=== PATIENT | female | born 1945 | race Caucasian/White ===

== ENCOUNTER 2020-11-25 09:25 | Day surgery (SDC) | payer MEDICARE, SELFPAY ==
--- NOTE | 2020-11-23 15:09 | HO.ANESPROP2 ---
Documented by User: Cee Ross 11/24/20 12:03 HPI - Anesthesia Eval Consult details Narrative: 75yo F for Hammertoe Repair PCP cleared [facility] Past Medical History Medical History Arthritis COPD (chronic obstructive pulmonary disease) Depression Elevated cholesterol History of right breast cancer Hypothyroid Surgical History Surgical History History of bunionectomy History of lumpectomy of right breast Hx of arthroscopy of knee Hx of colonoscopy Hx of hysterectomy Social History Social History Do you presently have visiting nurse or other home services: No Smoking Status: Former smoker Smoking Quit Date: 30 yrs ago Use of substances other than those prescribed or required for medical reasons: No Advance Directives: No Advance Directives Information Provided: No Advance Directives on File: No Recently lost weight without trying: No Meds Allergies Allergy/AdvReac Type Severity Reaction Status Date / Time No Known Allergies Allergy Unverified 08/05/20 16:14 [No Known Allergies*] Home Medications Medication Instructions Recorded Confirmed Type atorvastatin 1 tab PO DAILY 11/17/20 11/17/20 History levothyroxine 1 tab PO QAM 11/17/20 11/17/20 History trazodone 1 tab PO BEDTIME 11/17/20 11/17/20 History venlafaxine 2 cap PO DAILY 11/17/20 11/17/20 History Exam Exam Date and Time: November 23, 2020 1509 Height,Weight and Vital Signs: Height 5 ft 4 in Weight 79.379 kg Assessment and Plan Assessment Anesthesia Assessment: Chart Reviewed Documented by User: Shena Macias 11/25/20 09:57 [facility] Past Medical History Medical History Arthritis COPD (chronic obstructive pulmonary disease) Depression Elevated cholesterol History of right breast cancer Hypothyroid Surgical History Surgical History History of bunionectomy History of lumpectomy of right breast Hx of arthroscopy of knee Hx of colonoscopy Hx of hysterectomy Social History Social History Do you presently have visiting nurse or other home services: No Smoking Status: Former smoker Smoking Quit Date: 30 yrs ago Use of substances other than those prescribed or required for medical reasons: No Advance Directives: No Advance Directives Information Provided: No Advance Directives on File: No Recently lost weight without trying: No Meds Allergies Allergy/AdvReac Type Severity Reaction Status Date / Time No Known Allergies Allergy Unverified 08/05/20 16:14 [No Known Allergies*] Home Medications Medication Instructions Recorded Confirmed Type atorvastatin 1 tab PO DAILY 11/17/20 11/17/20 History levothyroxine 1 tab PO QAM 11/17/20 11/17/20 History trazodone 1 tab PO BEDTIME 11/17/20 11/17/20 History venlafaxine 2 cap PO DAILY 11/17/20 11/17/20 History Exam Airway Mallampati Class: II TM Dist: >3cm Neck ROM: Full Loose/Missing/Broken Teeth: No Heart: RRR Lungs: CTA Assessment and Plan Assessment Anesthesia Assessment: Anesthesia Plan Discussed and Chart Reviewed Final Anesthetic Review NPO: Yes ASA Class: II Final Preanesthetic Review: Meds/Allgs Chart Reviewed, Consent Obtained/Reviewed and Anes Risks/Benef Reviewed Patient Risk: Intermediate Procedure Risk: Low Anesthetic Plan Anesthetic Plan: MAC: Disposition: Standard PACU
--- NOTE | 2020-11-23 15:12 | HP_ITS ---
DATE OF SERVICE: 11/25/2020 PREOPERATIVE DIAGNOSES: 1. Hallux abductovalgus, right foot. 2. Hammertoe, right second toe. PLANNED PROCEDURES: 1. Sam bunionectomy with open reduction and internal fixation, right foot. 2. Hammertoe repair, right second toe. PLANNED ANESTHESIA: MAC anesthesia. CHIEF COMPLAINT AND HISTORY OF PRESENT ILLNESS: Miladis Geller is a 75-year-old female who relates history of painful bunion in the right great toe joint and hammertoe right second toe present over the past several years' duration. Her pain is aggravated by shoe gear and walking activity. Conservative treatment consisting of altered shoe gear has been ineffective. The patient had previous bunion surgery of her right great toe joint with Dr. Chaim Tucker approximately 30 years ago. The patient is now requesting surgical treatment for these painful conditions. PAST MEDICAL HISTORY: Remarkable for high cholesterol, hypothyroidism, depression, anxiety. CURRENT MEDICATIONS: The patient takes atorvastatin, levothyroxine, trazodone, venlafaxine, and lutein as well as [id number] Zyrtec allergy medication as needed. ALLERGIES: THE PATIENT AFTER REVIEW DENIES ANY ALLERGIES OR DRUG SENSITIVITIES. DR. ALEXANDER HAD MADE NOTE OF THE FACT THAT THE PATIENT DOES FEEL FATIGUED WHEN TAKING PROZAC. FAMILY HISTORY: Significant for hypertension and heart disease as well as foot problems. SOCIAL HISTORY: The patient denies smoking, denies alcohol. Denies use of any recreational drugs. The patient does drink 1 to 2 cups of coffee per day. PODIATRIC PHYSICAL EXAM: VASCULAR EXAM: The patient displays normal pulses and normal capillary refill time of bilateral feet. DERMATOLOGIC EXAM: Reveals intact skin bilateral. NEUROLOGIC EXAM: Reveals intact sensation bilateral. ORTHOPEDIC EXAM: Reveals a bunion deformity of the right first metatarsophalangeal joint with pain on palpation and lateral tracking noted of the first MTP joint. The patient also has a hammertoe contracture of the right second toe. The patient was seen most recently in my office on November 22, 2020. The patient was instructed of all potential risks and complications and is compliant with her right foot surgery. Preoperative informed consent has been obtained. VESNA Valdez/BERT / [id number] RYAN
[2020-11-25 10:03] VITALS: BP 137/70; PULSE 79; RESP 18; TEMP 36.4; O2SAT 95
[2020-11-25] MEDS: Lactated Ringers 1,000 ML 100 ML IVCONT (10:06)
[2020-11-25 10:17] VITALS: BP 137/70; PULSE 79; RESP 18; TEMP 36.4; O2SAT 95
[2020-11-25] MEDS: ceFAZolin Sodium/Dextrose,Iso 2 GM/50 ML PIGGYBACK IV (10:22)
--- NOTE | 2020-11-25 11:12 | MHC.SHP ---
Pre-Procedural Eval Section A The patient is an INPATIENT: No The History & Physical has been completed within 30 days and I have reviewed it.: Yes Section B Chief Complaint: Right Hallux Valgus,Hammer Toe Right 2nd Details of Present Illness: pain with shoes Allergies: Allergies Allergy/AdvReac Type Severity Reaction Status Date / Time No Known Allergies Allergy Verified 11/25/20 10:07 [No Known Allergies*] Plan Diagnosis/Plan: Unchanged I have reviewed the history and physical and performed a pertinent physical examination on my patient. No changes have occurred unless specified.
--- NOTE | 2020-11-25 12:18 | PCN2_ITS ---
Brief Operative Note Date of procedure: 11/25/20 Pre-op diagnosis: hallux valgus right, hammertoe right 2nd Post-op diagnosis: same Procedure: ender bunionectomy with orif right, hammertoe repair right 2nd toe Anesthesia: MAC Surgeon: Burt Lockhart [place] Attendant: Kitty Way Estimated blood loss (mL): 4.0 Condition: stable Disposition: PACU
[2020-11-25 12:20] VITALS: BP 146/64; PULSE 75; RESP 15; TEMP 36.7; O2SAT 96
[2020-11-25 12:35] VITALS: BP 124/61; PULSE 67; RESP 18; O2SAT 97
[2020-11-25 12:50] VITALS: BP 122/59; PULSE 66; RESP 16; O2SAT 96
[2020-11-25 13:05] VITALS: BP 130/61; PULSE 67; RESP 16; TEMP 36.7; O2SAT 97
--- NOTE | 2020-11-25 13:12 | OP_ITS ---
SURGEON: Burt Lockhart DPM PREOPERATIVE DIAGNOSIS: POSTOPERATIVE DIAGNOSIS: PROCEDURE PERFORMED: ESTIMATED BLOOD LOSS: COMPLICATIONS: ANESTHESIA: Consisted of local administration of a total of 16 cc of an equal mix of 2% lidocaine with epinephrine 1:100,000 of 0.5% Marcaine plain. Intravenous sedation was provided by the Anesthesia Department. ASSISTANTS: Kitty Way DPM. SPECIMENS: POSTOPERATIVE DIAGNOSES: 1. Hallux abductovalgus, right foot. 2. Hammertoe, right second toe. POSTOPERATIVE DIAGNOSES: 1. Hallux abductovalgus, right foot. 2. Hammertoe, right second toe. PROCEDURES PERFORMED: 1. Sosa bunionectomy with open reduction and internal fixation, right foot. 2. Hammertoe repair, right second toe. INTRODUCTION: The patient was brought to the operating room, placed on the operative table in supine position. After having been suitably anesthetized with local infiltrative anesthesia, the right lower extremity was then prepped and draped in the usual sterile manner. Please note that prior to start of the procedure, the right foot was exsanguinated utilizing Esmarch bandage and right ankle tourniquet was inflated to 250 mmHg pressure for the duration of the procedures. SOSA BUNIONECTOMY WITH OPEN REDUCTION AND INTERNAL FIXATION, RIGHT FOOT: Attention was directed to the dorsum of the right first metatarsophalangeal joint, where an incision approximately 7 cm length was effected and centered over the dorsum of the right first metatarsophalangeal joint. The incision was deepened in same plane and hemostasis was acquired as necessary. Skin margins were underscored and retracted. A dorsal linear capsule incision was then effected, and the capsule periosteum was underscored and retracted. McGlamry elevator was introduced to free up the adhesions between the sesamoid complex and the first metatarsal head. The first intermetatarsal space was exposed via blunt and sharp dissection. A lateral capsulotomy and adductor tenotomy performed via sharp dissection. Attention was directed back to the medial aspect of first metatarsal where a modified V-osteotomy was carried out through the distal metaphysis. The capital fragment was shifted laterally and then fixated utilizing 2 of the [place] cannulated screws each measuring 18 mm length and 2.0 mm in diameter. The screws were oriented perpendicular to the dorsal wing of the osteotomy. A 2 screw fixation was found to give excellent interfragmental compression of the osteotomy. The redundant bone was resected utilizing a sagittal saw. The wound was irrigated. Capsule was closed with 3-0 Vicryl. One-half of a 3 cm x 3 cm AmnioFix was placed inside the capsule during closure. The subcutaneous tissue was closed with 4-0 Maxon and Monocryl, and the second half of the AmnioFix was placed in the subcutaneous tissue during closure. Skin margins were reinforced with 4-0 nylon. HAMMERTOE REPAIR, RIGHT SECOND TOE: Attention was directed to the dorsum of the right second toe, where incision approximately 2 cm length was effected and centered over the dorsum of the right second toe proximal interphalangeal joint. The incision was deepened in the same plane. Hemostasis was acquired. The skin margins were underscored and retracted. A transverse incision was effected through the extensor tendon complex at the level of the PIP joint. The extensor tendon was underscored and retracted. The hypertrophic head of the proximal phalanx was delivered from the wound and resected utilizing a sagittal saw. The wound was irrigated. The tendon was coapted to maintain utilizing 3-0 Vicryl. Skin margins were closed with 4-0 nylon. CONCLUSION: At the conclusion of these procedures, the operative sites were dressed with half-inch Steri-Strips to the first MTP joint, Xeroform to the right second toe. Surgical sites were injected with total 5 cc of Marcaine 0.5% plain and 1 cc of dexamethasone phosphate. Sterile gauze, Kerlix fluffs, and Betadine-soaked gauze were applied to the right lower extremity. The patient tolerated the surgery and anesthesia well, and left the operating room via cart to the recovery room. Right ankle tourniquet was deflated and normal blood flow reestablished to the right lower extremity. FINAL DISPOSITION: The patient is discharged home with instructions for self-care and include the followin. To keep the dressings dry, clean, and intact. 2. To keep the right leg elevated with ice above the ankle. 3. To take all medications as prescribed. 4. Limit activity to minimum. 5. To always use surgical shoe and walker when ambulating. 6. To contact Dr. Lockhart if any questions or problems arise. 7. Lastly, the patient will have a followup appointment on Sunday, November 29, 2020. VESNA Valdez/BERT / [phone]
--- NOTE | 2020-11-25 13:24 | HO.POSTANES ---
Post Anesthesia Evaluation Post Anesthesia Evaluation Vital Signs: Vital Signs Temp Pulse Resp BP Pulse Ox 11/25/20 13:05 98.0 F 67 16 130/61 97 11/25/20 12:50 66 16 122/59 L 96 11/25/20 12:35 67 18 124/61 97 11/25/20 12:20 98.1 F 75 15 146/64 H 96 11/25/20 10:17 97.5 F 79 18 137/70 95 11/25/20 10:03 97.5 F 79 18 137/70 95 Anesthesia: Monitored Mental Status: Awake Pain Control: Satisfactory Nausea/Vomiting: None Hydration: Adequate Anesthesia-Related Issues: No Anes. Related Issues
== END 2020-11-25 13:44 | disposition home or self-care (01) ==
PROVIDERS: PCP Internal Medicine; Visit Provider Podiatrist
PROC: (CPT 28285; principal; 2020-11-25 10:50)
DX: M20.11 Hallux valgus (acquired), right foot (principal); M21.611 Bunion of right foot; M20.41 Other hammer toe(s) (acquired), right foot; J44.9 Chronic obstructive pulmonary disease, unspecified; M19.90 Unspecified osteoarthritis, unspecified site; Z79.899 Other long term (current) drug therapy; Z87.891 Personal history of nicotine dependence
CPT/HCPCS: 28296; 28285; 88304; 88311; C1713; J0690; J1100; J2250; J3010; J3590

== ENCOUNTER 2020-12-08 10:51 | Outpatient (REF) | payer MEDICARE, SELFPAY ==
--- NOTE | 2020-12-08 11:03 | XR_ITS ---
EXAMINATION: AP STANDING VIEW OF BOTH KNEES AND 2 VIEWS OF THE RIGHT KNEE CLINICAL INFORMATION: Right knee pain. COMPARISON: 04/08/2014 TECHNIQUE: AP standing view of both knees and lateral and sunrise views of the right knee. FINDINGS: AP view of the left knee demonstrate chondrocalcinosis. No significant joint space narrowing is seen. There is some mild degenerative spurring seen about the lateral joint space compartments. AP view of the right knee demonstrates severe narrowing of the medial joint space compartment which was present on prior study of 04/08/2014. There is sclerosis and spurring with chondrocalcinosis present about the medial joint space compartment. There is some spurring about the lateral joint space compartments. There is some mild narrowing of the patellofemoral joint with spurring about both medial and lateral facets. There is a small right knee effusion. XR/XR knee standing BI IMPRESSION: No evidence of acute fracture or dislocation of the right knee. Small right knee effusion. Stable severe medial joint space compartment disease of the right knee. Right patellofemoral joint mild degenerative change. Bilateral chondrocalcinosis.
--- NOTE | 2020-12-08 11:04 | XR_ITS ---
EXAMINATION: AP STANDING VIEW OF BOTH KNEES AND 2 VIEWS OF THE RIGHT KNEE CLINICAL INFORMATION: Right knee pain. COMPARISON: 04/08/2014 TECHNIQUE: AP standing view of both knees and lateral and sunrise views of the right knee. FINDINGS: AP view of the left knee demonstrate chondrocalcinosis. No significant joint space narrowing is seen. There is some mild degenerative spurring seen about the lateral joint space compartments. AP view of the right knee demonstrates severe narrowing of the medial joint space compartment which was present on prior study of 04/08/2014. There is sclerosis and spurring with chondrocalcinosis present about the medial joint space compartment. There is some spurring about the lateral joint space compartments. There is some mild narrowing of the patellofemoral joint with spurring about both medial and lateral facets. There is a small right knee effusion. XR/XR knee RT 2V IMPRESSION: No evidence of acute fracture or dislocation of the right knee. Small right knee effusion. Stable severe medial joint space compartment disease of the right knee. Right patellofemoral joint mild degenerative change. Bilateral chondrocalcinosis.
== END 2020-12-08 10:52 | disposition home or self-care (01) ==
LOC: HO.XRAY 10:51
PROVIDERS: PCP Internal Medicine; Visit Provider Orthopaedic Surgery
DX: M25.561 Pain in right knee (principal)
CPT/HCPCS: 73560; 73565

== ENCOUNTER 2021-01-20 09:34 | Outpatient (REF) | payer MEDICARE, SELFPAY ==
[2021-01-20 10:23] LABS: MANUAL DIFF FLAG NO
[2021-01-20 10:36] LABS: Basophils Percent Auto 0.6 % (0-2); Eosinophils Absolute Auto 0.1 X10*3/uL (0.0-0.4); Eosinophils Percent Auto 1.7 % (0-4); Hematocrit 43.2 % (37-47); Hemoglobin 14.2 g/dl (12.0-16.0); Imm Gran Abs Auto 0.01 X10*3/uL (0.00-0.03); Imm Gran Pct Auto 0.2 % (0.0-0.4); Lymphocytes Absolute Auto 1.7 X10*3/uL (1.2-4.9); Mean Corpuscular HGB Conc 32.9 g/dl (31.0-35.0); Mean Corpuscular Hemoglobin 28.1 pg (27.0-33.0); Mean Corpuscular Volume 85.4 fL (80-98); Mean Platelet Volume 10.1 fL (9.4-12.3); Monocytes Absolute Auto 0.4 X10*3/uL (0.1-1.2); Monocytes Percent Auto 7.9 % (2-11); Neutrophils Absolute Auto 2.5 X10*3/uL (2.0-8.3); Neutrophils Percent Auto 52.6 % (45-73); Platelet Count 289 X10*3/uL (160-400); Red Blood Count 5.06 X10*6/uL (4.20-5.50); White Blood Count 4.7 X10*3/uL (4.8-10.8)
[2021-01-20 11:05] LABS: Glucose Urine UA NEG (NEG); Leukocyte Esterase Urine 2+ (NEG); Nitrite Urine NEG (NEG); Urine Blood NEG (NEG); Urine Ketones NEG (NEG); Urine Protein NEG (NEG-TRACE)
[2021-01-20 11:13] LABS: Appearance Urine HAZY; Color Urine YELLOW
[2021-01-20 11:20] LABS: Bacteria Urine TRACE /LPF; Mucus Urine TRACE /LPF; RBC Urine 0-2 /HPF (0); Squamous Epithelial Cell Urine 1+ /LPF
[2021-01-20 11:23] LABS: Alanine Aminotransferase 19 U/L (0-31); Alkaline Phosphatase 68 U/L (39-117); Anion Gap 12 (12-20); Aspartate Amino Transferase 19 U/L (5-31); Bilirubin Total 0.6 mg/dL (0.0-1.0); Blood Urea Nitrogen 13 mg/dL (9-16); Carbon Dioxide 28 mmol/L (22-29); Cholesterol 158 mg/dL; Estimated Glomerular Filt Rate > 60; HDL Cholesterol 53 mg/dL; LDL Cholesterol Calculated 86 mg/dl; Triglycerides 98 mg/dL
[2021-01-20 11:31] LABS: Thyroid Stimulating Hormone 1.14 uIU/mL (0.32-4.0); Vitamin D 25-OH Total 60.1 ng/mL (>30)
[2021-01-20 13:21] LABS: Albumin Level 4.4 g/dL (3.5-5.0); Calcium 9.6 mg/dL (8.4-10.2); Chloride 106 mmol/L (96-108); Glucose Fasting 97 mg/dL (60-99); Potassium 4.2 mmol/L (3.3-5.1); Sodium 142 mmol/L (135-145)
== END 2021-01-20 09:35 | disposition home or self-care (01) ==
LOC: HO.LAB 09:34
PROVIDERS: PCP Internal Medicine; Visit Provider Internal Medicine
DX: E78.00 Pure hypercholesterolemia, unspecified (principal); E03.9 Hypothyroidism, unspecified; M25.561 Pain in right knee
CPT/HCPCS: 36415; 80053; 80061; 81001; 82306; 84443; 85025

== ENCOUNTER 2021-03-23 13:26 | Outpatient (REF) | payer MEDICARE, SELFPAY ==
--- NOTE | ~2021-03-23 | CT_ITS ---
EXAMINATION: CT CHEST, ABDOMEN AND PELVIS WITHOUT CONTRAST CLINICAL INFORMATION: Right flank pain, elevated hemidiaphragm. COMPARISON: None. TECHNIQUE: 5 mm thin axial and reformatted 3 mm thin sagittal and coronal images of the chest, abdomen and pelvis were obtained without contrast. FINDINGS: CHEST: The lungs are well expanded and clear of acute pneumonic process. There is a 2 mm calcified nodule right upper lobe axial image 222/7, a 3 mm nodule right lower lobe adjacent to the major fissure axial image 279/7, a 2 mm nodule right lower lobe axial image 298/7, a 2 mm nodule right middle lobe axial image 293/7, 3 mm nodule right lower lobe anterior segment image 325/7. There are focal atelectatic changes right middle lobe. The thyroid lobes are symmetric and normal. The central trachea and bronchi are widely patent. The heart size is normal. The ascending aorta measures 4.1 x 3.8 cm. There is no pericardial effusion. There are no abnormal mediastinal lymph nodes. There is no pleural effusion, thickening or calcification. The axilla and chest wall is unremarkable. ABDOMEN AND PELVIS: The liver is homogeneous in density, normal size and contour. No focal lesion or intrahepatic ductal dilatation seen. The gallbladder is unremarkable. Visualized spleen, pancreas and bilateral adrenal glands are unremarkable. Both kidneys are normal size, shape and position. There are no radiographic renal calculi or hydronephrosis. There is moderate stool, diverticula and gas seen throughout the colon without any significant distention or mural thickening. There is no pericolic fat stranding. The small bowel loops are normal caliber. Appendix is not visualized. There is no free air or free fluid. There is epigastric anterior abdominal wall hernia with intraperitoneal fat within the neck is 1.4 cm wide. A tiny umbilical hernia containing fat is noted. Imaging through the pelvis reveals multiple phleboliths in the pelvis. There is no adnexal mass. The uterus is atrophic or surgically removed. No abnormal pelvic or inguinal lymph nodes seen. Bone windows reveal degenerative disc changes with vacuum disc phenomena at L5-S1 disc level. There is mild ventral spondylosis upper lumbar spine. No lytic or sclerotic process seen. There is bilateral L5-S1, L4-L5 and L3-L4 facet joint arthropathy. No lytic process. CT/CT abdomen pelvis wo con IMPRESSION: Bilateral noncalcified 3 mm pulmonary nodules and a 2 mm calcified right upper lobe nodule No acute consolidation. No abnormal mediastinal or axilla lymph nodes. Anterior epigastric abdominal wall hernia containing intraperitoneal fat. Epkfaizy-sp-xoaibxlwxjm constipation. No radiopaque renal calculi or hydronephrosis.
== END 2021-03-23 13:27 | disposition home or self-care (01) ==
LOC: HO.CT 13:26
PROVIDERS: PCP Internal Medicine; Visit Provider Internal Medicine
DX: R10.9 Unspecified abdominal pain (principal); J98.6 Disorders of diaphragm
CPT/HCPCS: 71250; 74176

== ENCOUNTER 2021-04-26 11:29 | Outpatient (REF) | payer MEDICARE, SELFPAY ==
--- NOTE | ~2021-04-26 | MM_ITS ---
EXAMINATION: MM SCREENING DIGITAL BREAST TOMOSYNTHESIS, BILATERAL CLINICAL INFORMATION: Screening. Asymptomatic. Lumpectomy for right breast cancer 2009. Due for yearly. COMPARISON: Mammography: 12/22/2019, 12/19/2018, 04/02/2017 TECHNIQUE: Digital breast tomosynthesis is performed in both the craniocaudal and mediolateral oblique views along with computer-aided detection (CAD). Synthesized 2D images are generated from the tomosynthesis. FINDINGS: There are scattered areas of fibroglandular density (ACR BI-RADS breast composition Category b). Right breast post therapy changes are similar to prior exams with mild reduced breast size, stable scarring, and surgical clips. Neither breast shows interval mass or architectural abnormality or abnormal calcifications. Fibronodular pattern on the left is left prominent since 2017. There are scattered bilateral benign round calcifications again seen, many are dermal. The axilla are unremarkable. No significant changes from prior exams. MM/MM tomosynthesis screening BI IMPRESSION: No significant changes from prior studies. Chronic post therapy changes right breast. ASSESSMENT: BI-RADS 2: Benign RECOMMENDATION: Routine annual mammography screening. This patient's information was entered into a reminder system with a target due date for their next mammogram.
== END 2021-04-26 11:30 | disposition home or self-care (01) ==
LOC: HO.MAMMO 11:29
PROVIDERS: Visit Provider Internal Medicine
DX: Z12.31 Encounter for screening mammogram for malignant neoplasm of breast (principal); R06.00 Dyspnea, unspecified; Q79.1 Other congenital malformations of diaphragm; M41.9 Scoliosis, unspecified; Z79.899 Other long term (current) drug therapy; Z87.891 Personal history of nicotine dependence
CPT/HCPCS: 77063; 77067; 99202

== ENCOUNTER 2021-05-09 12:59 | Outpatient (REF) | payer MEDICARE, SELFPAY ==
--- NOTE | 2021-05-09 17:06 | PFT_ITS ---
FLOWS: FEV1 87% of predicted at 1.77 L. FVC 85% of predicted at 2.32 L. FEV1 to FVC ratio of 0.76. No bronchodilator response. LUNG VOLUMES: Total lung capacity 82% of predicted at 4.17 L. Residual volume 76% of predicted at 1.77 L. Slow vital capacity 87% of predicted at 2.39 L. Expiratory reserve volume 32% of predicted at 0.19 L. Diffusion capacity is moderately decreased, diffusion capacity improves to being mildly decreased after correction for alveolar ventilation. IMPRESSION: Borderline restrictive ventilatory defect with no bronchodilator response. Decreased diffusion capacity suggests emphysema. Sukumar Song MD AP/MODL / [id number]
== END 2021-05-09 13:00 | disposition home or self-care (01) ==
LOC: HO.RESP 12:59
PROVIDERS: PCP Internal Medicine; Visit Provider Internal Medicine
DX: R06.00 Dyspnea, unspecified (principal); R91.1 Solitary pulmonary nodule; M41.9 Scoliosis, unspecified; Q79.1 Other congenital malformations of diaphragm
CPT/HCPCS: 94060; 94727; 94729

== ENCOUNTER → 2021-06-02 14:01 | Outpatient (BNVA) | payer MEDICARE, SELFPAY | PROVIDERS: PCP Internal Medicine; Visit Provider Internal Medicine | DX: Q79.1 Other congenital malformations of diaphragm (principal); R06.00 Dyspnea, unspecified | CPT/HCPCS: 99212 ==

== ENCOUNTER 2022-02-27 09:41 | Outpatient (REF) | payer MEDICARE, SELFPAY ==
--- NOTE | ~2022-02-27 | XR_ITS ---
EXAMINATION: XR SHOULDER, RIGHT CLINICAL INFORMATION: Right shoulder pain COMPARISON: None TECHNIQUE: AP external rotation, Grashey, scapular Y, and axillary views of the right shoulder. FINDINGS: Mild acromioclavicular and glenohumeral osteoarthritis. There is faint calcification in the region of the supraspinatus tendon likely representing calcific tendinitis. No acute abnormality. XR/XR shoulder RT min 2V IMPRESSION: Mild degenerative findings as described. Faint calcific tendinitis.
[2022-02-27 11:09] LABS: MANUAL DIFF FLAG NO
[2022-02-27 11:26] LABS: Color Urine YELLOW; Glucose Urine UA NEG (NEG); Leukocyte Esterase Urine 3+ (NEG); Nitrite Urine NEG (NEG); Specific Gravity - Urine 1.015 (1.005-1.025); Urine Blood TRACE (NEG); Urine Ketones NEG (NEG); Urine Protein NEG (NEG-TRACE)
[2022-02-27 11:28] LABS: Appearance Urine HAZY
[2022-02-27 11:30] LABS: Basophils Percent Auto 0.6 % (0-2); Eosinophils Absolute Auto 0.1 X10*3/uL (0.0-0.4); Eosinophils Percent Auto 2.6 % (0-4); Hemoglobin 14.5 g/dl (12.0-16.0); Imm Gran Abs Auto 0.02 X10*3/uL (0.00-0.03); Imm Gran Pct Auto 0.4 % (0.0-0.4); Lymphocytes Absolute Auto 1.5 X10*3/uL (1.2-4.9); Lymphocytes Percent Auto 29.3 % (20-40); Mean Corpuscular HGB Conc 32.2 g/dl (31.0-35.0); Mean Corpuscular Hemoglobin 27.9 pg (27.0-33.0); Mean Corpuscular Volume 86.5 fL (80.0-98.0); Mean Platelet Volume 9.9 fL (9.4-12.3); Monocytes Absolute Auto 0.4 X10*3/uL (0.1-1.2); Monocytes Percent Auto 7.7 % (2-11); Neutrophils Percent Auto 59.4 % (45-73); Platelet Count 300 X10*3/uL (160-400); Red Cell Distribution Width 13.4 % (11.0-16.0); White Blood Count 5.1 X10*3/uL (4.8-10.8)
[2022-02-27 11:51] LABS: Bacteria Urine 1+ /LPF; Squamous Epithelial Cell Urine 2+ /LPF
[2022-02-27 11:57] LABS: Alanine Aminotransferase 21 U/L (0-31); Albumin Level 4.3 g/dL (3.5-5.0); Alkaline Phosphatase 75 U/L (39-117); Anion Gap 11 (12-20); Aspartate Amino Transferase 22 U/L (5-31); Bilirubin Total 0.3 mg/dL (0.0-1.0); Blood Urea Nitrogen 13 mg/dL (9-16); Calcium 9.7 mg/dL (8.4-10.2); Carbon Dioxide 28 mmol/L (22-29); Chloride 106 mmol/L (96-108); Cholesterol 170 mg/dL; Estimated Glomerular Filt Rate > 60; Glucose Fasting 102 mg/dL (60-99); HDL Cholesterol 56 mg/dL; LDL Cholesterol Calculated 93 mg/dl; Potassium 4.4 mmol/L (3.3-5.1); Sodium 141 mmol/L (135-145); Total Protein 7.1 g/dL (6.5-8.0); Triglycerides 108 mg/dL
== END 2022-02-27 09:42 | disposition home or self-care (01) ==
LOC: HO.HMGCX 09:41
PROVIDERS: PCP Internal Medicine; Visit Provider Internal Medicine
DX: M25.511 Pain in right shoulder (principal); E03.9 Hypothyroidism, unspecified; E78.00 Pure hypercholesterolemia, unspecified; N39.41 Urge incontinence
CPT/HCPCS: 36415; 73030; 80053; 80061; 81001; 84443; 85025

== ENCOUNTER 2022-05-05 15:01 | Outpatient (REF) | payer MEDICARE, SELFPAY ==
--- NOTE | ~2022-05-05 | XR_ITS ---
EXAMINATION: LEFT FOOT AND ANKLE X-RAY CLINICAL INFORMATION: Pain COMPARISON: None TECHNIQUE: 3 views of the left foot and 3 views of the left ankle FINDINGS: There are postoperative changes to the first metatarsal bone. There are 2 screws seen in the distal shaft of the first metatarsal bone. There is question of avulsion fracture of the anterior talus. No other fracture is seen. There is mild arthritis at the first MTP joint. Soft tissue swelling adjacent to the first metatarsal bone. There is a small calcaneal spur at the tendon insertion. Left ankle: Question avulsion fracture of the anterior talus, uncertain age. No other fracture. Normal ankle mortise. XR/XR ankle LT 2V IMPRESSION: Postop change to the first metatarsal bone. Mild arthritis at the first MTP joint. Question avulsion fracture of the anterior talus seen on the lateral view, uncertain age. Small calcaneal spur at the Achilles tendon insertion.
--- NOTE | ~2022-05-05 | XR_ITS ---
EXAMINATION: LEFT FOOT AND ANKLE X-RAY CLINICAL INFORMATION: Pain COMPARISON: None TECHNIQUE: 3 views of the left foot and 3 views of the left ankle FINDINGS: There are postoperative changes to the first metatarsal bone. There are 2 screws seen in the distal shaft of the first metatarsal bone. There is question of avulsion fracture of the anterior talus. No other fracture is seen. There is mild arthritis at the first MTP joint. Soft tissue swelling adjacent to the first metatarsal bone. There is a small calcaneal spur at the tendon insertion. Left ankle: Question avulsion fracture of the anterior talus, uncertain age. No other fracture. Normal ankle mortise. XR/XR foot LT min 3V IMPRESSION: Postop change to the first metatarsal bone. Mild arthritis at the first MTP joint. Question avulsion fracture of the anterior talus seen on the lateral view, uncertain age. Small calcaneal spur at the Achilles tendon insertion.
--- NOTE | ~2022-05-05 | XR_ITS ---
EXAMINATION: XR CHEST CLINICAL INFORMATION: Chest wall pain COMPARISON: Previous chest CT March 2021 TECHNIQUE: 2 views of the chest were obtained. FINDINGS: There is elevation of the right hemidiaphragm similar to previous exam. The cardiac and mediastinal contours are normal. There is minimal subsegmental atelectasis seen behind the lower sternum on the lateral view. The lungs are otherwise clear. There is blunting at the posterior left costophrenic angle questionable for tiny left pleural effusion. There is no right pleural effusion or pneumothorax. There are degenerative changes and scoliosis of the spine. XR/XR chest 2V IMPRESSION: Minimal retrosternal subsegmental atelectasis seen on the lateral view. Question tiny left pleural effusion. Chronic elevation of the right hemidiaphragm.
== END 2022-05-05 15:02 | disposition home or self-care (01) ==
LOC: HO.HMGCX 15:01
PROVIDERS: Visit Provider Physician Assistant
DX: M79.672 Pain in left foot (principal); R07.81 Pleurodynia
CPT/HCPCS: 71046; 73600; 73630

== ENCOUNTER 2022-07-04 10:44 | Outpatient (REF) | payer MEDICARE, SELFPAY ==
--- NOTE | ~2022-07-04 | MM_ITS ---
EXAMINATION: MM SCREENING DIGITAL BREAST TOMOSYNTHESIS, BILATERAL CLINICAL INFORMATION: Screening. Asymptomatic. Status post right lumpectomy. COMPARISON: Mammography: March 2021 and studies dating back to March 01, 2016 TECHNIQUE: Digital breast tomosynthesis is performed in both the craniocaudal and mediolateral oblique views along with computer-aided detection (CAD). Synthesized 2D images are generated from the tomosynthesis. FINDINGS: There are scattered areas of fibroglandular density (ACR BI-RADS breast composition Category b). There are no new significant masses, abnormal calcifications, or other abnormalities. Right breast postsurgical change stable. MM/MM tomosynthesis screening BI IMPRESSION: No significant change. ASSESSMENT: BI-RADS 2: Benign RECOMMENDATION: Routine annual mammography screening. This patient's information was entered into a reminder system with a target due date for their next mammogram.
== END 2022-07-04 10:45 | disposition home or self-care (01) ==
LOC: HO.MAMMO 10:44
PROVIDERS: PCP Internal Medicine; Visit Provider Internal Medicine
DX: Z12.31 Encounter for screening mammogram for malignant neoplasm of breast (principal)
CPT/HCPCS: 77063; 77067

== ENCOUNTER 2022-09-20 14:25 | Outpatient (REF) | payer MEDICARE, SELFPAY ==
[2022-09-20 14:38] LABS: MANUAL DIFF FLAG NO
--- NOTE | 2022-09-20 14:39 | ECG_ITS ---
Test Reason : e78.00 Blood Pressure : / mmHG Vent. 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
[2022-09-20 14:46] LABS: Basophils Percent Auto 0.7 % (0-2); Eosinophils Absolute Auto 0.1 X10*3/uL (0.0-0.4); Eosinophils Percent Auto 1.2 % (0-4); Hemoglobin 13.8 g/dl (12.0-16.0); Imm Gran Abs Auto 0.01 X10*3/uL (0.00-0.03); Imm Gran Pct Auto 0.2 % (0.0-0.4); Lymphocytes Absolute Auto 1.9 X10*3/uL (1.2-4.9); Lymphocytes Percent Auto 31.7 % (20-40); Mean Corpuscular HGB Conc 33.7 g/dl (31.0-35.0); Mean Corpuscular Hemoglobin 28.8 pg (27.0-33.0); Mean Corpuscular Volume 85.6 fL (80.0-98.0); Mean Platelet Volume 9.5 fL (9.4-12.3); Monocytes Absolute Auto 0.5 X10*3/uL (0.1-1.2); Monocytes Percent Auto 8.7 % (2-11); Neutrophils Absolute Auto 3.4 x10*3/uL (2.0-8.3); Neutrophils Percent Auto 57.5 % (45-73); Platelet Count 267 X10*3/uL (160-400); Red Blood Count 4.79 X10*6/uL (4.20-5.50); White Blood Count 5.9 X10*3/uL (4.8-10.8)
[2022-09-20 14:53] LABS: Prothrombin Time 11.6 SEC (10.0-13.1)
[2022-09-20 15:13] LABS: Alanine Aminotransferase 28 U/L (0-31); Albumin Level 4.5 g/dL (3.5-5.0); Alkaline Phosphatase 74 U/L (39-117); Anion Gap 14 (12-20); Aspartate Amino Transferase 27 U/L (5-31); Bilirubin Total 0.6 mg/dL (0.0-1.0); Blood Urea Nitrogen 19 mg/dL (9-16); Calcium 10.1 mg/dL (8.4-10.2); Carbon Dioxide 29 mmol/L (22-29); Chloride 101 mmol/L (96-108); Estimated Glomerular Filt Rate > 60; Glucose Random 86 mg/dL (60-115); Potassium 4.6 mmol/L (3.3-5.1); Sodium 139 mmol/L (135-145); Total Protein 7.2 g/dL (6.5-8.0)
[2022-09-20 15:35] LABS: Thyroid Stimulating Hormone 1.54 uIU/mL (0.32-4.0)
== END 2022-09-20 14:26 | disposition home or self-care (01) ==
LOC: HO.LAB 14:25
PROVIDERS: PCP Internal Medicine; Visit Provider Internal Medicine
DX: E03.9 Hypothyroidism, unspecified (principal); E78.00 Pure hypercholesterolemia, unspecified
CPT/HCPCS: 36415; 80053; 84443; 85025; 85610; 93005

== ENCOUNTER 2023-12-03 11:33 | Outpatient (REF) | payer MEDICARE, SELFPAY ==
--- NOTE | ~2023-12-03 | MM_ITS ---
EXAMINATION: MM SCREENING DIGITAL BREAST TOMOSYNTHESIS, BILATERAL CLINICAL INFORMATION: Screening. Asymptomatic. History of right breast cancer. COMPARISON: Mammography: This study is compared with prior exams dating back to 2016. TECHNIQUE: Digital breast tomosynthesis is performed in both the craniocaudal and mediolateral oblique views along with computer-aided detection (CAD). Synthesized 2D images are generated from the tomosynthesis. FINDINGS: The breasts are almost entirely fatty (ACR BI-RADS breast composition Category a). There are no significant masses, abnormal calcifications, or other abnormalities. There are postsurgical changes in the superior aspect of the right breast from prior cancer treatment. MM/MM tomosynthesis screening BI IMPRESSION: No mammographic evidence of malignancy. ASSESSMENT: BI-RADS BI-RADS 2 - Benign Findings RECOMMENDATION: Routine annual mammography screening. 1 year F/U This examination should not preclude the clinical evaluation of a suspicious palpable abnormality. This patient's information was entered into a reminder system with a target due date for their next mammogram.
== END 2023-12-03 11:34 | disposition home or self-care (01) ==
LOC: HO.MAMMO 11:33
PROVIDERS: PCP Internal Medicine; Visit Provider Internal Medicine
DX: Z12.31 Encounter for screening mammogram for malignant neoplasm of breast (principal)
CPT/HCPCS: 77063; 77067

== ENCOUNTER → 2023-12-03 11:45 | Outpatient (BNV) | payer MEDICARE, SELFPAY | PROVIDERS: PCP Internal Medicine; Visit Provider Radiology Diagnostic Radiology | DX: Z12.31 Encounter for screening mammogram for malignant neoplasm of breast (principal) | CPT/HCPCS: 77063; 77067 ==

== ENCOUNTER 2023-12-10 07:50 | Outpatient (REF) | payer MEDICARE, SELFPAY ==
[2023-12-10 11:41] LABS: MANUAL DIFF FLAG NO
[2023-12-10 12:10] LABS: Basophils Percent Auto 0.7 % (0-2); Eosinophils Absolute Auto 0.1 X10*3/uL (0.0-0.4); Eosinophils Percent Auto 2.4 % (0-4); Hematocrit 44.5 % (37.0-47.0); Hemoglobin 14.5 g/dl (12.0-16.0); Imm Gran Abs Auto 0.01 X10*3/uL (0.00-0.03); Imm Gran Pct Auto 0.2 % (0.0-0.4); Lymphocytes Absolute Auto 1.8 X10*3/uL (1.2-4.9); Mean Corpuscular HGB Conc 32.6 g/dl (31.0-35.0); Mean Corpuscular Hemoglobin 28.5 pg (27.0-33.0); Mean Corpuscular Volume 87.4 fL (80.0-98.0); Mean Platelet Volume 10.7 fL (9.4-12.3); Monocytes Absolute Auto 0.4 X10*3/uL (0.1-1.2); Monocytes Percent Auto 8.9 % (2-11); Neutrophils Absolute Auto 2.2 x10*3/uL (2.0-8.3); Neutrophils Percent Auto 47.8 % (45-73); Platelet Count 274 X10*3/uL (160-400); Red Blood Count 5.09 X10*6/uL (4.20-5.50); Red Cell Distribution Width 13.2 % (11.0-16.0); White Blood Count 4.6 X10*3/uL (4.8-10.8)
[2023-12-10 12:11] LABS: Alanine Aminotransferase 25 U/L (0-31); Albumin Level 4.3 g/dL (3.5-5.0); Alkaline Phosphatase 75 U/L (39-117); Anion Gap 10 (12-20); Aspartate Amino Transferase 22 U/L (5-31); Bilirubin Total 0.5 mg/dL (0.0-1.0); Blood Urea Nitrogen 14 mg/dL (9-16); Calcium 9.5 mg/dL (8.4-10.2); Carbon Dioxide 31 mmol/L (22-29); Chloride 102 mmol/L (96-108); Cholesterol 150 mg/dL (<200); Estimated Glomerular Filt Rate > 60; Glucose Fasting 96 mg/dL (60-99); HDL Cholesterol 53 mg/dL (>40); LDL Cholesterol Calculated 80 mg/dL (<100); Potassium 3.9 mmol/L (3.3-5.1); Sodium 139 mmol/L (135-145); Total Protein 7.2 g/dL (6.5-8.0); Triglycerides 87 mg/dL (<150)
== END 2023-12-10 07:51 | disposition home or self-care (01) ==
LOC: HO.HMGCLDS 07:50
PROVIDERS: PCP Internal Medicine; Visit Provider Internal Medicine
DX: E03.9 Hypothyroidism, unspecified (principal); E78.00 Pure hypercholesterolemia, unspecified; F32.5 Major depressive disorder, single episode, in full remission; K29.70 Gastritis, unspecified, without bleeding
CPT/HCPCS: 36415; 80053; 80061; 84443; 85025

== ENCOUNTER 2025-02-19 15:44 | Emergency (ER) | payer MEDICARE, SELFPAY ==
--- NOTE | ~2025-02-19 | MR_ITS ---
CLINICAL HISTORY: MRA abnormal pupil, headache, papilledema Hx breast CA MR brain without and with contrast Comparison: None Findings: No acute signal abnormalities noted on diffusion-weighted imaging. No acute intracranial fluid collection, hematoma or signal abnormality. Chronic ischemic white matter disease and volume loss. There are no abnormal areas of contrast enhancement. Midline structures are intact and within normal limits. Normal flow voids are noted within the vascular structures. Sinuses and mastoids are clear. Impression: No significant abnormalities. This document has been electronically signed by: Clarence Chen MD on 02/19/2025 20:32:32
--- NOTE | ~2025-02-19 | MR_ITS ---
CLINICAL HISTORY: abnormal pupils, blurry vision, papilledema L eye Hx breast CA MR angiogram head/[place] without/with contrast Comparison: None Findings: Normal configuration noted in the [place] vessels. No acute filling defect or vessel truncation noted. Dural venous sinuses patent without filling defects. No focal aneurysm or central vascular abnormality. No peripheral vascular malformations demonstrated. Impression: No acute vascular abnormalities. This document has been electronically signed by: Clarence Chen MD on 02/19/2025 20:31:06
[2025-02-19 15:48] VITALS: BP 138/78; PULSE 70; O2SAT 96
[2025-02-19 15:58] VITALS: BP 147/76; PULSE 70; RESP 18; TEMP 36.4; O2SAT 97; BMI 30.6
--- NOTE | 2025-02-19 16:27 | ECG_ITS ---
Test Reason : STROKE SYMPTOMS Blood Pressure : */* mmHG Vent. 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
--- NOTE | 2025-02-19 16:46 | ED.HA ---
HPI - Headache General Chief Complaint: General Medical Stated Complaint: referal by atomists pressure in nerves L eye+brain Time Seen by Provider: 02/19/25 16:19 Source: patient, EMS and old records reviewed Mode of arrival: EMS Limitations: no limitations History of Present Illness ED Provider: HPI Narrative: 80 yo female with PMH of HLD presents to the ED from optometrists office due to left eye aniscoria and blurry vision that began at 9am this morning. She reports not feeling well yesterday but states she is feeling well today. She denies headaches, weakness, dizziness, and nausea. Patient is not on blood thinners. No recent head trauma. She has had bilateral cataract surgery. Her eye doctor sent her here after initial exam but no reported retinal detachment she was told she had macular degeneration. She came with a letter asking us to rule out any thing causing pressure on her optic nerve. MD elicited complaint: other (abnormal pupil) Onset (ago): day(s) (today at 9am) Onset description: suddenly Location: left (eye) Severity: moderate Quality & Timing: dull Exacerbating factors: none Relieving factors: nothing Context: occurred at rest Associated symptoms: other (blurred vision) Related Data Home Medications ?Medication ?Instructions ?Recorded ?Confirmed atorvastatin 20 mg tablet 1 tab PO DAILY 11/17/20 04/26/21 trazodone 50 mg tablet 1 tab PO BEDTIME 11/17/20 04/26/21 venlafaxine 75 mg capsule,extended 2 cap PO DAILY 11/17/20 04/26/21 release 24 hr cholecalciferol (vitamin D3) 50 50 mcg PO DAILY 04/26/21 04/26/21 mcg (2,000 unit) capsule multivitamin (Daily Multi-Vitamin See Rx Instructions PO DAILY 04/26/21 04/26/21 tablet) Previous Rx's ?Medication ?Instructions ?Recorded cyclobenzaprine 5 mg tablet 5 mg PO BEDTIME #10 tabs 05/05/22 lidocaine 4 % topical patch 1 patch topical DAILY PRN pain #15 05/05/22 (Aspercreme (lidocaine)) ea levothyroxine 75 mcg tablet 75 mcg PO QAM 90 days #90 tabs 12/02/24 Allergies Allergy/AdvReac Type Severity Reaction Status Date / Time No Known Allergies Allergy Verified 02/19/25 16:01 [No Known Allergies*] Review of Systems Review of Systems: Constitutional : No Fever, No Chills, No Fatigue ENT/Mouth : No sore throat, No Rhinorrhea Eyes: No Eye Pain, No Swelling, No Redness, pos intermittent blurry vision Cardiovascular : No Chest Pain, No SOB, No Dyspnea on Exertion Respiratory : No Cough, No Sputum Gastrointestinal : No Nausea, No Vomiting, No Diarrhea, No abdominal Pain Genitourinary : No Dysuria, No Urinary Frequency, No Hematuria, Musculoskeletal : No joint pain, No Myalgias, No Joint Swelling Skin : No Skin Lesions, No rash Neuro : No Weakness, No Numbness, No Dizziness, positive Headache All other systems reviewed and are negative PMFSH Past Medical History Attestation statement: The following information was validated with the patient. Source: old records reviewed Medical History Scoliosis deformity of spine Diaphragm, eventration Dyspnea on exertion History of right breast cancer Arthritis Hypothyroid Depression COPD (chronic obstructive pulmonary disease) Elevated cholesterol Surgical History Hx of arthroscopy of knee History of bunionectomy Hx of hysterectomy Hx of colonoscopy History of lumpectomy of right breast Social History Social History Do you presently have visiting nurse or other home services: No Unable to assess alcohol history related to: Unknown Patient Tobacco Use Status: Former Tobacco user Years Smoked: 31 Smoked in Last 30 Days: No Use of substances other than those prescribed or required for medical reasons: Unknown Physical Exam Vital Signs: Vital Signs: Last Vital Signs Temp 98.4 F 02/19/25 20:47 Pulse 68 02/19/25 20:47 Resp 16 02/19/25 20:47 BP 147/71 H 02/19/25 20:47 Pulse Ox 97 02/19/25 20:47 O2 Del Method Room Air 02/19/25 20:47 BMI result Body Mass Index 30.6 Appearance: Alert. Oriented X3. No acute distress. Eyes: Pupils R 3mm L 4mm L seems very mildly sluggish but it constricts and dilates appropriately with direct or consensual testing. EOMi ENT: Pharynx normal. Neck: Normal inspection. Neck supple. CVS: Normal heart rate and rhythm. Pulses normal. Respiratory: No respiratory distress. Breath sounds normal. Abdomen: Soft and nontender. Skin: Skin warm and dry. Normal skin color. Normal skin turgor. Extremities: No lower extremity edema. No calf ttp Neuro: Oriented X 3. No motor deficit. No sensory deficit. L pupil dilated > R and sluggish to both direct and consensual light testing. She has no proptosis of the eyes, L eye pressure 22. NIH Stroke Scale Internal: Initial- Upon Arrival Level of Consciousness: Alert Level of Consciousness Questions: Answers both questions correctly Level of Consciousness Commands: Performs both tasks correctly Best Gaze: Normal Visual: No visual loss Facial Palsy: Normal Motor Arm (Right): No drift Motor Arm (Left): No drift Motor Leg (Right): No drift Motor Leg (Left): No drift Limb Ataxia: Absent Sensory: Normal Best Language: No aphasia Dysarthia: Normal Extinction and Inattention: No abnormality Score: 0 Course Course Course Narrative: repeat pressure 21 MRI shows no lesion, edema, aneurysm, stroke Medications Administered Discontinued Medications Generic Name Dose Route Start Last Admin Trade Name Freq PRN Reason Stop Dose Admin Gadobutrol 10 ml 02/19/25 19:13 02/19/25 19:14 Gadobutrol 10 Ml Vial IVPUSH 02/19/25 19:14 8 ml ONCE ONE Administration Medical Decision Making Medical Decision Making [facility] Narrative: 80 yo female with PMH of HLD here from optometrists office with left eye aniscoria and blurry vision. Tonometry of left eye was within normal range at 22. suspect mass, aneurysm, stroke. Will obtain MRA of brain to identify pathology. If stroke out of window for any TNK intervention. Differential Diagnosis Differential Diagnoses: The differential diagnosis associated with the presentation includes optic neuritis, mass, aneurysm, stroke, less likely MS Admission/Observation Consideration of admission/observation: Escalation of care including admission/observation considered no increase in IOP, MRI and MRA negative, infl markers negative Consult Healthcare Provider Management of the patient was discussed with: Technology Sales Consultant call to radiologist discussed case and he states no issues with optic nerve it all appears normal Lab Data [facility] Lab Attestation statement: I reviewed the patient's lab results. 02/19/25 16:50 02/19/25 16:50 Labs: Lab Results 02/19/25 Range/Units 16:50 WBC 6.2 (4.8-10.8) X10*3/uL RBC 4.99 (4.20-5.50) X10*6/uL Hgb 13.6 (12.0-16.0) g/dl Hct 40.8 (37.0-47.0) % MCV 81.8 (80.0-98.0) fL MCH 27.3 (27.0-33.0) pg MCHC 33.3 (31.0-35.0) g/dl RDW 15.0 (11.0-16.0) % Plt Count 256 (160-400) X10*3/uL MPV 9.4 (9.4-12.3) fL Immature Gran % (Auto) 0.2 (0.0-0.4) % Neut % (Auto) 58.8 (45-73) % Lymph % (Auto) 31.0 (20-40) % [place] % (Auto) 6.8 (2-11) % Eos % (Auto) 2.4 (0-4) % Baso % (Auto) 0.8 (0-2) % Lymph # (Auto) 1.9 (1.2-4.9) X10*3/uL [place] # (Auto) 0.4 (0.1-1.2) X10*3/uL Eos # (Auto) 0.2 (0.0-0.4) X10*3/uL Baso # (Auto) 0.1 (0.0-0.2) X10*3/uL Abs Immat Gran (auto) 0.01 (0.00-0.03) X10*3/uL Absolute Neuts (auto) 3.7 (2.0-8.3) x10*3/uL Absolute Nucleated RBC 0.000 (0.0-0.012) X10*3/uL Nucleated RBC % (auto) 0.0 (0.0-0.2) /100WBC ESR 4 (0-20) MM/HR Sodium 138 (135-145) mmol/L Potassium 3.9 (3.3-5.1) mmol/L Chloride 104 (96-108) mmol/L Carbon Dioxide 25 (22-29) mmol/L Anion Gap 13 (12-20) BUN 13 (9-16) mg/dL Creatinine 0.63 (0.5-1.4) mg/dL Estim Creat Clear Calc 72.1 Estimated GFR > 60 Random Glucose 89 (60-115) mg/dL Calcium 9.6 (8.4-10.2) mg/dL Magnesium 2.4 (1.6-2.6) mg/dL Total Bilirubin 0.5 (0.0-1.0) mg/dL Direct Bilirubin 0.1 (0.0-0.5) mg/dL AST 38 H (5-31) U/L ALT 36 H (0-31) U/L Alkaline Phosphatase 75 (39-117) U/L C-Reactive Protein < 0.10 (< or = 0.50) mg/dL Total Protein 7.2 (6.5-8.0) g/dL Albumin 4.3 (3.5-5.0) g/dL TSH 1.38 (0.32-4.0) uIU/mL Independent Interpretation I performed an independent interpretation of an: EKG and CT Scan (MRI/MRA normal ) Interpretation: Rate: 70 Rhythm: NSR [place]: left Normal P waves. Normal LARISA. Normal QRS complex. ST T wave : no THERESE, flat t waves anterior qTC:473 prior studies: no acute ischemia The study has been interpreted contemporaneously by me. . Independent Historian Clinical information obtained from an independent historian. History obtained from or confirmed by: Other External Record Review External record reviewed: Outpatient record Discharge Plan Discharge Clinical Impression: Anisocoria Patient Disposition: Home, Self-Care Instructions: Eye Pain (ED) Additional Instructions: MRI and MRA normal no stroke, mass, edema, aneurysm IOP 21 no signs of elevated pressure thyroid test and inflammatory markers are normal please call your eye doctor in the AM avoid that new moisturizer for now. Prescriptions: No Action levothyroxine 75 mcg tablet 75 mcg PO QAM 90 Days Qty: 90 1RF venlafaxine 75 mg capsule,extended release 24hr 2 cap PO DAILY atorvastatin 20 mg tablet 1 tab PO DAILY trazodone 50 mg tablet 1 tab PO BEDTIME lidocaine [Aspercreme (lidocaine)] 4 % adhesive patch,medicated 1 patch topical DAILY PRN (Reason: pain) Qty: 15 0RF cyclobenzaprine 5 mg tablet 5 mg PO BEDTIME Qty: 10 0RF cholecalciferol (vitamin D3) 50 mcg (2,000 unit) capsule 50 mcg PO DAILY multivitamin [Daily Multi-Vitamin] Tablet See Rx Instructions PO DAILY Rx Instructions: pt uses zackary Leach vitamins 3 PO daily; Print Language: Urdu
[2025-02-19 16:55] LABS: MANUAL DIFF FLAG NO
[2025-02-19 17:05] LABS: Basophils Absolute Auto 0.1 X10*3/uL (0.0-0.2); Basophils Percent Auto 0.8 % (0-2); Eosinophils Absolute Auto 0.2 X10*3/uL (0.0-0.4); Eosinophils Percent Auto 2.4 % (0-4); Hematocrit 40.8 % (37.0-47.0); Hemoglobin 13.6 g/dl (12.0-16.0); Imm Gran Abs Auto 0.01 X10*3/uL (0.00-0.03); Imm Gran Pct Auto 0.2 % (0.0-0.4); Lymphocytes Absolute Auto 1.9 X10*3/uL (1.2-4.9); Mean Corpuscular HGB Conc 33.3 g/dl (31.0-35.0); Mean Corpuscular Hemoglobin 27.3 pg (27.0-33.0); Mean Corpuscular Volume 81.8 fL (80.0-98.0); Mean Platelet Volume 9.4 fL (9.4-12.3); Monocytes Absolute Auto 0.4 X10*3/uL (0.1-1.2); Monocytes Percent Auto 6.8 % (2-11); Neutrophils Absolute Auto 3.7 x10*3/uL (2.0-8.3); Neutrophils Percent Auto 58.8 % (45-73); Platelet Count 256 X10*3/uL (160-400); Red Blood Count 4.99 X10*6/uL (4.20-5.50); White Blood Count 6.2 X10*3/uL (4.8-10.8)
[2025-02-19 17:15] LABS: Alanine Aminotransferase 36 U/L (0-31); Albumin Level 4.3 g/dL (3.5-5.0); Alkaline Phosphatase 75 U/L (39-117); Anion Gap 13 (12-20); Aspartate Amino Transferase 38 U/L (5-31); Bilirubin Direct 0.1 mg/dL (0.0-0.5); Bilirubin Total 0.5 mg/dL (0.0-1.0); Blood Urea Nitrogen 13 mg/dL (9-16); C Reactive Protein < 0.10 mg/dL (< or = 0.50); Calcium 9.6 mg/dL (8.4-10.2); Carbon Dioxide 25 mmol/L (22-29); Chloride 104 mmol/L (96-108); Creatinine Clr Calc Pharmacy 72.1; Estimated Glomerular Filt Rate > 60; Glucose Random 89 mg/dL (60-115); Magnesium 2.4 mg/dL (1.6-2.6); Potassium 3.9 mmol/L (3.3-5.1); Sodium 138 mmol/L (135-145); Total Protein 7.2 g/dL (6.5-8.0)
[2025-02-19 17:36] LABS: TSH reflex Free T4 1.38 uIU/mL (0.32-4.0)
[2025-02-19 17:45] LABS: Erythrocyte Sedimentation Rate 4 MM/HR (0-20)
--- NOTE | 2025-02-19 17:55 | PC.NURSE ---
MRI screening form sent, confirmed reciept
[2025-02-19] MEDS: gadobutroL 10 ML VIAL IVPUSH (19:14)
[2025-02-19 20:47] VITALS: BP 147/71; PULSE 68; RESP 16; TEMP 36.9; O2SAT 97
--- NOTE | 2025-02-19 20:50 | MHC.EDTECH ---
This pct assumed care of Patient at 1900 ,vitals taken ,Patient had snack ,Patient daughter at bedside .Call romero within Pt reach .
[2025-02-19 21:25] VITALS: BP 147/71; PULSE 68; RESP 16; TEMP 36.9; O2SAT 97
== END 2025-02-19 21:25 | disposition home or self-care (01) ==
LOC: HO.ED 21:30
PROVIDERS: Emergency Provider Emergency Medicine
DX: H57.02 Anisocoria (principal); R51.9 Headache, unspecified; H53.8 Other visual disturbances; H47.10 Unspecified papilledema; Z85.3 Personal history of malignant neoplasm of breast; R29.700 NIHSS score 0; E78.00 Pure hypercholesterolemia, unspecified; E03.9 Hypothyroidism, unspecified; Z79.02 Long term (current) use of antithrombotics/antiplatelets; Z79.899 Other long term (current) drug therapy
CPT/HCPCS: 36415; 70546; 70553; 80048; 80076; 83735; 84443; 85025; 85652; 86140; 93005; 99285; A9585

== ENCOUNTER → 2025-02-19 16:27 | Outpatient (BNV) | payer MEDICARE, SELFPAY | PROVIDERS: Emergency Provider Emergency Medicine; Visit Provider Internal Medicine | DX: I49.1 Atrial premature depolarization (principal); I25.2 Old myocardial infarction | CPT/HCPCS: 93010 ==

== ENCOUNTER → 2025-02-19 16:27 | Outpatient (BNV) | payer MEDICARE, SELFPAY | PROVIDERS: Emergency Provider Emergency Medicine; Visit Provider Radiology Diagnostic Radiology | DX: R51.9 Headache, unspecified (principal); R93.0 Abnormal findings on diagnostic imaging of skull and head, not elsewhere classified; H47.10 Unspecified papilledema; H53.10 Unspecified subjective visual disturbances | CPT/HCPCS: 70546; 70553 ==

== ENCOUNTER 2025-03-27 14:38 | Outpatient (AMB) | payer MEDICARE, SELFPAY ==
--- NOTE | 2025-03-27 14:38 | A.OFFPC_ITS ---
Vital Signs 03/27/25 14:39 Height 5 ft 4 in Weight 179 lb BMI 30.7 BP 136/63 Respiration 16 Pulse 86 Pulse Source Pulse Oximeter Temp 97.6 F Temp Source Temporal Artery Scan Pulse Oximetry (%) 98 Oxygen Delivery Method Room Air Intake Visit Reasons: follow up Wagon Driller Required: No Accompanied by: Self / Same As Patient Allergies No Known Allergies [No Known Allergies*] Allergy (Verified 03/27/25 14:59) Medication List - Last Reconciled 03/27/25 by Ashley Lloyd PA-C atorvastatin 1 tab PO DAILY cholecalciferol (vitamin D3) 50 mcg PO DAILY levothyroxine 75 mcg PO QAM 90 days multivitamin (Daily Multi-Vitamin tablet) pt uses [employer] vitamins 3 PO daily; trazodone 1 tab PO BEDTIME venlafaxine ER 2 caps PO DAILY Tobacco use date assessed: 03/27/25 Fall risk assessment: No Falls in past year Last assessed Fall Risk: 03/27/25 Dental Screening Dental Screen Date: 03/27/25 Did you have a dental visit in the last 12 months?: Yes Did you have a dental problem in the last 6 months where you did not have access to dental care?: No Was dental information given to patient?: Patient has dentist HPI follow up HPI Details The patient is an 80-year-old female presenting ablation new primary care provider due to Dr. Curran retired and for a six-month follow-up. She reports symptoms consistent with gastroesophageal reflux disease (GERD). She describes episodes of esophageal burning following the ingestion of oral medication, primarily occurring at night. The recent episode involved significant discomfort requiring head elevation during rest for symptom relief. Additionally, she reports progressive urinary incontinence over the past two years marked by urgency and frequency. She also manages multiple chronic conditions, including a history of breast cancer with lumpectomies, episodic leg swelling following a prior event of phlebitis, and decreased exercise tolerance with recent onset dyspnea for potential underlying pulmonary concerns attributed to previous asthma and smoking history. Persistent ear canal irritation and reduced visual acuity, which resolved spontaneously after an acute event, are also noted. Social History - History of smoking, with associated br eathing difficulty. - History of breast cancer with successf ul surgical intervention. - Reports difficulties with recent exerc ise due to decreased tolerance. - Noted dietary and supplement intake, i ncluding regular magnesium use before sleep. [facility] Medical History (Updated 03/27/25 @ 16:56 by Ashley Lloyd PA-C) Obesity (BMI 30-39.9) Asthma History of breast cancer Establishing care with new doctor, encounter for History of smoking Shortness of breath Urinary incontinence Epigastric abdominal pain GERD (gastroesophageal reflux disease) Scoliosis deformity of spine Diaphragm, eventration Dyspnea on exertion History of right breast cancer Arthritis Hypothyroid Depression COPD (chronic obstructive pulmonary disease) Elevated cholesterol Surgical History Hx of arthroscopy of knee History of bunionectomy Hx of hysterectomy Hx of colonoscopy History of lumpectomy of right breast Family History Father Heart attack Mother AD (Alzheimer's disease) Sister Heart attack Social History Housing: House Do you presently have visiting nurse or other home services: No Alcohol intake: current Alcohol intake frequency: does not drink Patient Tobacco Use Status: Former Tobacco user Years Smoked: 31 service: No Current occupational status: retired Cognitive needs: Yes (uses cane when needed) Hearing needs: No Vision needs: Yes (rx glasses) Questionnaire PHQ-9 Over the last 2 weeks, how often have you been bothered by any of the following problems? 1. Little interest or pleasure in doing things: several days 2. Feeling down, depressed, or hopeless: not at all 3. Trouble falling or staying asleep, or sleeping too much: several days 4. Feeling tired or having little energy: several days 5. Poor appetite or overeating: not at all 6. Feeling bad about yourself - or that you are a failure or have let yourself or your family down: not at all 7. Trouble concentrating on things, such as reading the newspaper or watching television: not at all 8. Moving or speaking so slowly that other people could have noticed. Or the opposite - being so fidgety or restless that you have been moving around a lot more than usual: not at all 9. Thoughts that you would be better off or of hurting yourself in some way: not at all Total score: 3 Depression Screening Interpretation: Negative Depression Screening Done: Yes 10730 - PHQ-9 Billing: Yes Source: Developed by Drs. Catrachito Hubbard, Sho Sanchez, Tenzin Taylor and colleagues, with an educational padmini from [employer]. Thrive Questionnaire Date Thrive assessed: 03/27/25 I am a: Patient What is your living situation today?: I have a steady place to live Within the past 12 months, did the food you bought not last and you didn't have the money to get more?: Never true Within the past 12 months, did you worry whether your food would run out before you got money to buy more?: Never true Do you have trouble paying for medicines?: No Do you have trouble getting transportation to medical appointments?: No Do you have trouble paying your heating and electricity bill?: No Do you have trouble taking care of your child, family member or friend?: No Do you have trouble with day-to-day activities such as bathing, preparing meals, shopping, managing finances, etc.?: No Are you currently unemployed and looking for a job?: No Are you interested in more education?: No Please select the resources that you would like help with: None THRIVE Score: 0 AUDIT C Alcohol Use Questionnaire (AUDIT-C) 1. How often do you have a drink containing alcohol?: Never 3. How often do you have six or more drinks on one occasion?: Never Total Score: 0 Score Reviewed/Action Taken: No EMILEE-7 AMB Questionnaire EMILEE-7 Date EMILEE - 7 assessed: 03/27/25 Feeling nervous, anxious, or on edge: 0 = Not at all Not being able to stop or control worryin = Not at all Worrying too much about different things: 0 = Not at all Trouble relaxin = Not at all Being so restless that it is hard to sit still: 0 = Not at all Becoming easily annoyed or irritable: 0 = Not at all Feeling afraid as if something awful might happen: 0 = Not at all Total EMILEE-7 score (0-4 normal; 5-9 mild; 10-14 moderate; 15-21 severe): 0 Source: Developed by Sho Knowles Kurt Kroenke and colleagues, with an educational padmini from [employer]. EMILEE-7 Assessment Billing EMILEE-7 Assessment Tool: EMILEE-7 Assessment 35710 Review of Systems Const Details: - Cardiovascular: Denies chest pain, heart palpitations. - Respiratory: Reports dyspnea on exertion; a history of asthma. - Gastrointestinal: Reports burning esophageal discomfort post-medication at night. - Genitourinary: Reports urinary incontinence worsening over two years. - Musculoskeletal: Reports left leg swelling previously associated with phlebitis. - Neurological: Denies dizziness, weakness. - HEENT: Reports auditory canal irritation; denies significant hearing loss. - Endocrine: Denies symptoms of thyroid dysfunction. - Hematological: Denies known anemia. Physical exam (Primary Care) Vital Signs: Last Vital Signs Temp 97.6 F 03/27/25 14:39 Pulse 86 03/27/25 14:39 Resp 16 03/27/25 14:39 BP 136/63 03/27/25 14:39 Pulse Ox 98 03/27/25 14:39 Oxygen Delivery Method Room Air 03/27/25 14:39 Care Plan Goal for BP management: <130/90 at Goal BMI result Body Mass Index 30.7 BMI Assessment/Plan discussion: High BMI High, discussed plan: lifestyle, weight reduction, dietary, physical activity and alcohol moderation Tobacco/Smoking Status: Tobacco use Status Tobacco use date assessed 03/27/25 03/27/25 14:53 Patient Tobacco Use Status Former Tobacco user 03/27/25 14:53 PHQ-9: PHQ-9 Score PHQ-9: Total score 3 03/27/25 16:48 Depression Screening Interpretation: Negative Thrive Assessment: Date of Thrive Assessment Date Thrive assessed 03/27/25 03/27/25 14:53 Const Other: Appearance: Alert. Oriented X3. No acute distress. Head: Normal external exam. Normocephalic. Atraumatic. Eyes: Pupils are equal, round, and reactive to light. Extraocular movements intact. Conjunctiva and sclera normal. Eyelids normal. Ears: External auditory canal normal. Tympanic membranes normal. Both ears have a little bit of wax. Throat: Pharynx normal. Uvula midline. Moist mucous membranes. Neck: Normal inspection. Neck supple. Full range of motion. No adenopathy. Thyroid Normal. No meningeal signs. No neck mass noted. Cardiovascular: Normal heart rate and rhythm. Heart sound normal. No murmurs noted. Pulses normal throughout. Respiratory: No respiratory distress. Painless inspiration. Breath sounds normal. No wheezes/rales/rhonchi noted. Chest nontender. No accessory muscle usage noted or decreased air movement noted. Abdomen: Soft and nontender. Bowel sounds normal in all 4 quadrants. No distention noted. No organomegaly noted. No visible injury noted. Mild upper abdominal pain noted. Back: No costovertebral angle tenderness. Full range of motion noted. Skin: Skin warm and dry. Normal skin color. Normal skin turgor. No rashes/lesions/lacerations noted. Extremities: No lower extremity edema. Extremities exhibit normal range of motion. Extremities nontender. Right leg shows signs of previous phlebitis. Neuro: Oriented X 3. No motor deficit. No sensory deficit. Reflexes normal. Results Reviewed Results Reviewed: - Labs: White blood cells, red blood cells, and platelets normal; Liver function test shows mildly elevated AST/ALT at 38 and 36, respectively. Kidney function, electrolytes, and thyroid function remain within normal limits. - Imaging: MRI brain reported normal following recent visual symptomatology. Coding Level of Care Code Est Pt Level 4 (30739) Complex EM visit Add On G2211 Diagnoses Establishing care with new doctor, encounter for Z76.89 GERD (gastroesophageal reflux disease) K21.9 Epigastric abdominal pain R10.13 Urinary incontinence R32 History of smoking Z87.891 Asthma J45.909 History of breast cancer Z85.3 Obesity (BMI 30-39.9) E66.9 Additional Codes EMILEE-7 Assessment Billing - EMILEE-7 Assessment Tool: EMILEE-7 Assessment 05756 ([id number]) PHQ-9 - 18520 - PHQ-9 Billing: Yes ([id number]) Assessment & Plan Assessment & Plan (1) Establishing care with new doctor, encounter for: Code(s): Z76.89 - Persons encountering health services in other specified circumstances Category: Medical (2) GERD (gastroesophageal reflux disease): Code(s): K21.9 - Gastro-esophageal reflux disease without esophagitis Category: Medical Plan: Plan: Refer to GI, initiate positional therapy will also prescribe omeprazole 40 mg to be taken daily. Condition is chronic and stable will continue to monitor. (3) Epigastric abdominal pain: Code(s): R10.13 - Epigastric pain Category: Medical Plan: Will order basic labs, patient will be started on omeprazole 40 mg daily, will refer to GI and order abdominal ultrasound to evaluate for any intra-abdominal processes. Condition is chronic and stable will continue to monitor if epigastric abdominal pain becomes persistent patient is instructed to go to the emergency department. (4) Urinary incontinence: Code(s): R32 - Unspecified urinary incontinence Category: Medical Plan: Plan: Refer to urology for surgical consulting. Condition is chronic and stable continue to monitor. (5) History of smoking: Code(s): Z87.891 - Personal history of nicotine dependence Category: Social Hx Plan: Patient reports a history of smoking in the past and has intermittent episodes of shortness of breath with activity requesting referral to pulmonology. Condition is chronic and stable continue to monitor. (6) Asthma: Code(s): J45.909 - Unspecified asthma, uncomplicated Category: Medical Plan: Patient reports a history of smoking in the past and has intermittent episodes of shortness of breath with activity requesting referral to pulmonology. Condition is chronic and stable continue to monitor. (7) History of breast cancer: Code(s): Z85.3 - Personal history of malignant neoplasm of breast Category: Medical Plan: Plan: Plan mammogram for continual monitoring. Patient remission will continue to monitor. (8) Obesity (BMI 30-39.9): Code(s): E66.9 - Obesity, unspecified Category: Medical Plan: Patient to improve her diet and exercise regimen. Condition is chronic and stable continue to monitor. Plan Plan Patient was informed and verbally consented to the use of an ambient scribe for clinic note documentation during this visit. 1. Gastroesophageal Reflux Disease Gerd Plan: Refer to GI, initiate positional therapy. 2. Urinary Incontinence Plan: Refer to urology for surgical consulting. 3. History Of Breast Cancer Plan: Plan mammogram for continual monitoring. 4. Asthma Plan: Pulmonary evaluation and consider medication updates if necessary. 5. Leg Swelling Plan: Consider compression support pending further investigation. 6. Decreased Exercise Tolerance Plan: Assess exercise capacity implications, evaluate participation in a tailored regimen. 7. Eustachian Tube Dysfunction Plan: Management using ear irrigation techniques and re-evaluation. 8. Recent Decreased Visual Acuity Plan: Optometric follow-up to optimize visual correction. I discussed with the patient the likely diagnosis of gastroesophageal reflux disease (GERD) and recommended lifestyle modifications such as elevating the head of the bed and avoiding supine positioning immediately after meals. We discussed the referral to gastroenterology for a comprehensive evaluation, including an endoscopy, to better characterize her symptoms and rule out other esophageal pathology. Consultation with urology is needed for incontinence issues due to frequent urgency and considering her history of hysterectomy. We discussed potential benefits of surgical interventions such as bladder sling placement and emphasized urological consultation for advanced management. Post-surgical history of breast cancer was reviewed, highlighting the importance of regular mammograms, with a new mammogram ordered to aid in ongoing surveillance given her prior oncological history. I reassured her regarding the normal results of her previous MRI after a transient episode of visual disturbance. Given her report of breathing difficulty and a past medical history of asthma, I suggested a referral to pulmonary services for assessment, reiterating the need for potential adjustments in her asthma management plan, especially given her past smoking history and reduced exercise capacity. Concerns regarding bilateral ear blockage attributed to wax were addressed with a straightforward home-based irrigation technique. I encouraged attending the follow-up within three months to reevaluate the progress on these issues and ensured her understanding of the necessity for these referrals and ongoing assessment. Orders: Orders Lipid Panel Today Z00.00 - Encounter for general adult medical examination without abnormal findings Magnesium Today Z00.00 - Encounter for general adult medical examination without abnormal findings XR DEXA axial skeleton Today M81.0 - Age-related osteoporosis without current pathological fracture MM screening mammo BI Today Z12.31 - Encounter for screening mammogram for malignant neoplasm of breast TSH reflex Free T4 Today Z00.00 - Encounter for general adult medical examination without abnormal findings Hemoglobin A1c Today Z00.00 - Encounter for general adult medical examination without abnormal findings Vitamin B12 and Folate Today Z00.00 - Encounter for general adult medical examination without abnormal findings Vitamin D 25-OH Total Today Z00.00 - Encounter for general adult medical examination without abnormal findings US abdomen complete Today K21.9 - Gastro-esophageal reflux disease without esophagitis, R10.13 - Epigastric pain H pylori Ag Stool Today K21.9 - Gastro-esophageal reflux disease without esophagitis, R10.13 - Epigastric pain FL Modified Barium Swallow Today K21.9 - Gastro-esophageal reflux disease without esophagitis, R10.13 - Epigastric pain Referrals Pulmonology Referral R06.02 - Shortness of breath, Z87.891 - Personal history of nicotine dependence Gastroenterology Referral K21.9 - Gastro-esophageal reflux disease without esophagitis, R10.13 - Epigastric pain Urology Referral R32 - Unspecified urinary incontinence Medications: New omeprazole 40 mg PO DAILY 90 caps 1RF gerd Patient Instructions: - Raise head during sleep and avoid lying flat right after eating to help ease heartburn. - Schedule and attend urogynecology and gastroenterology appointments as discussed. - Attend upcoming mammogram appointment. - Look after your hearing with recommended ear cleaning solutions. - Monitor any breathing changes; inform us if worsening. - Engage in light exercise tailored to your capacity. - supervisor record press any new prescriptions at your pharmacy. - Return to the clinic in three months for follow-up or sooner if symptoms change. - Complete fasting lab work at your convenience.
[2025-03-27 14:39] VITALS: BP 136/63; PULSE 86; RESP 16; TEMP 36.4; O2SAT 98; BMI 30.7
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
--- OUTSIDE RECORDS SUMMARY | 2025-03-27 14:41 | XMS_ITS ---
Author Name [facility] Organization Unknown Results Test Name/Text Value Interpretation Date Range Source Glucose Bld-mCnc 163mg/dL Normal [id number] 70 - 199 CT_THSFRAN History of Medication Use Medication Directions Dispensed Refills Start Date End Date Stat us losartan (Cozaar) 25 mg tablet Take 1 tablet (25 mg total) by mouth 1 (one) time each day. 03/20/2025 active venlafaxine XR (EFFEXOR-XR) 24 hr capsule 150 mg 150 mg, oral, Daily, First dose (after last modification) on Sun09/26/24 at 0900, Recovery [facility] On Unit, Capsule may be swallowed whole, or may be opened and its contents sprinkled on applesauce if consumed immediately without chewing. Do not crush or chew. 09/26/2024 active aspirin 81 mg EC tablet Take 1 tablet (81 mg total) by mouth 1 (one) time each day for 28 days. Take after completing Eliquis. 09/25/2024 4 active tranexamic acid (LYSTEDA) tablet 1,950 mg 1,950 mg, oral, Daily, First dose on Amanda 09/25/24 at 0900, For 3 doses, Recovery & On Unit, Do not crush, chew, or split. 09/25/2024 4 active methocarbamoL (ROBAXIN) 750 mg tablet Take 1 tablet (750 mg total) by mouth every 6 (six) hours if needed for muscle spasms for up to 10 days. 09/24/2024 4 active venlafaxine XR (EFFEXOR-XR) 24 hr capsule 75 mg 75 mg, oral, Once, On Amanda 09/25/24 at 0945, For 1 dose, Capsule may be swallowed whole, or may be opened and its contents sprinkled on applesauce if consumed immediately without chewing. Do not crush or chew. 09/24/2024 4 active bupivacaine-EPINEPH rine (MARCAINE w/EPI) 0.25 %-1:200,000 60 mL in sodium chloride 0.9 % 75 mL syringe infiltration, Once, On Sun09/24/24 at 0900, For 1 dose, Preprocedure, For OR/procedural administration by ordering provider. 09/24/2024 4 completed ceFAZolin (ANCEF) 2 g in sterile water 20 mL IV syringe 2 g, intravenous, Administer over 3 Minutes, Once, On Sun09/24/24 at 1800, For 1 dose, Phase II/On Unit, ceFAZolin (ANCEF) IV 2g patients less than 120kg Give 8 hours after intra-op dose, Indication: Prophylaxis-Surgica l 09/24/2024 4 completed fentaNYL (PF) (SUBLIMAZE) injection 50 mcg 50 mcg, intravenous, Every 5 min PRN, severe pain, moderate pain, Starting on Sun09/24/24 at 0836, For 2 doses, Preprocedure 09/24/2024 4 aborted ondansetron (PF) (ZOFRAN) injection 4 mg 09/24/2024 active methocarbamol (ROBAXIN) 750 MG tablet Take 1 tablet (750 mg total) by mouth every 6 (six) hours as needed. 01/25/2021 4 aborted regadenoson (LEXISCAN) injection 0.4 mg 01/20/2021 4 aborted atorvastatin (LIPITOR) tablet 40 mg 40 mg, oral, Nightly, First dose on Sun09/24/24 at 2100, Recovery [facility] On Unit 11/30/2020 active traZODone (DESYREL) 50 MG tablet Take 1 tablet (50 mg total) by mouth every night at bedtime. 11/10/2020 active venlafaxine (EFFEXOR-XR) 75 MG 24 hr capsule daily. 11/04/2020 active venlafaxine XR (EFFEXOR-XR) 75 mg 24 hr capsule 1 (one) time each day. 07/29/2019 active traZODone (DESYREL) tablet 50 mg 50 mg, oral, Nightly, First dose on Sun09/24/24 at 2100, Recovery [facility] On Unit 05/10/2019 active lisinopriL (PRINIVIL,ZESTRIL) 2.5 mg tablet Take 1 tablet (2.5 mg total) by mouth 1 (one) time each day. 4 aborted calcium carbonate-vitamin D3 600 mg-5 mcg (200 unit) per tablet 1 (one) time each day. active co-enzyme Q-10 30 MG capsule 1 capsule (30 mg total) daily. active Lactobac. rhamnosus GG-inulin 20 billion cell -200 mg capsule Take 200 mg by mouth. active MILK THISTLE PO Take by mouth daily. active Multiple Vitamins-Minerals (PRESERVISION AREDS) CAPS Take 1 capsule by mouth daily. active Problems Problem Status Onset Date Problem Type Date of Resolution Source Mixed hyperlipidemia active 2025-03-[address] [facility] COPD (chronic obstructive pulmonary disease) (CMS/[facility] V24, CMS/[facility] V28) active 2025-03-20 ProblemAct [facility] Hypertension active 2025-03-20 Problem[address] [facility] SFRAN Degenerative arthritis of left knee active EncounterDiagnosisAct CTTHNE MG Family history of coronary artery disease active 2025-03-20 ProblemAct [facility]_THS[facility] Obesity, Class I, BMI 30-34.9 active EncounterDiagnosisAct CTTHNE MG Gastroesophageal reflux disease without esophagitis active EncounterDiagnosisAct CTTHNEMG History of deep vein thrombophlebitis of lower extremity active EncounterDiagnosisAct CTT HNEMG Hyperlipidemia, unspecified hyperlipidemia type active EncounterDiagnosisAct CTTHNEMG Depression, unspecified depression type active EncounterDiagnosisAct CTT HNEMG Acquired hypothyroidism active EncounterDiagnosisAct CTTH NEMG Immunizations Vaccine Date Source Lot Number Status Moderna SARS-CoV-2 COVID-19, mRNA, LNP-S, preservative free 03/31/2022 [facility]_SFRAN [id number] completed Revolv SARS-CoV-2 COVID-19, mRNA, LNP-S, preservative free 09/27/2021 CT_FavimSFRMICHELLE [id number] completed Clink SARS-CoV-2 COVID-19, mRNA, LNP-S, preservative free 02/08/2021 CT_SSelectMindsMICHELLE [id number] completed Clink SARS-CoV-2 COVID-19, mRNA, LNP-S, preservative free 12/23/2020 MARI_ASHLEYFRMICHELLE [id number] completed Encounters Encounter Type Encounter Reason Primary Diagnosis Location Date Ambulatory Follow-up Essential (prima ry) hypertension [facility] 03/20/2025 Ambulatory Unilateral primary osteoarthritis, left knee Unilateral primary osteoarthritis, left knee [facility] 09/24/2024 Ambulatory [facility] 09/09/2024 Ambulatory [facility] 08/27/2024 [facility] 08/27/2024 Care Team Organization Name Specialty Phone Email Start Date End Da te [facility]/26/2024 [facility]/2024 [facility]/28/2024 [facility]
--- OUTSIDE RECORDS SUMMARY | 2025-03-27 14:41 | XMS_ITS | Clinical Summary ---
Author Organization [facility] Address [address] [place] [address] Phone Care Team Providers Care Bottom Buffer Name Role Phone BinaCatrachito varghese Primary Care Provider [phone] Allergies Active Allergy Reactions Criticality Noted Date Comments Fluoxetine 08/27/2024 Other reaction(s): fatigue Medications atorvastatin (LIPITOR) 40 mg tablet Take 1 tablet (40 mg total) by mouth. 1 Active calcium carbonate-vitamin D3 600 mg-5 mcg (200 unit) per tablet 1 (one) time each day. Active Lactobac. rhamnosus GG-inulin 20 billion cell -200 mg capsule Take 200 mg by mouth. Active levothyroxine (SYNTHROID, LEVOTHROID) 75 mcg tablet TAKE 1 TABLET BY MOUTH EVERY DAY IN THE MORNING ON EMPTY STOMACH 9 Active venlafaxine XR (EFFEXOR-XR) 75 mg 24 hr capsule 1 (one) time each day. 9 Active vitamins A,C,D-abnj-pbobnt (PreserVision AREDS) 4,296 mcg-226 mg-90 mg capsule Take 1 capsule by mouth 1 (one) time each day. Active traZODone (DESYREL) 50 mg tablet Take 1 tablet (50 mg total) by mouth. 9 Active losartan (Cozaar) 25 mg tabletIndications: Hypertension, unspecified type Take 1 tablet (25 mg total) by mouth 1 (one) time each day. 90 each 3 5 03/15/20 26 Active methocarbamoL (ROBAXIN) 750 mg tablet Take 1 tablet (750 mg total) by mouth every 6 (six) hours if needed for muscle spasms for up to 10 days. 40 tablet 09/26/2024 2:07 PM EST 4 03/20/20 25 Discontin ued(Thera py completed ) oxyCODONE (ROXICODONE) 5 mg immediate release tabletIndications: Primary osteoarthritis of left knee Take 1 tablet (5 mg total) by mouth every 4 (four) hours if needed for severe pain (Pain scale 1-3). Max Daily Amount: 30 mg 40 tablet 09/26/2024 2:07 PM EST 4 03/20/20 25 Discontin ued(Thera py completed ) senna-docusate (PERICOLACE) 8.6-50 mg per tablet Take 1 tablet by mouth 2 (two) times a day. 40 each 09/26/2024 2:07 PM EST 4 03/20/20 25 Discontin ued(Thera py completed ) apixaban (ELIQUIS) 2.5 mg tablet Take 1 tablet (2.5 mg total) by mouth 2 (two) times a day for 12 days. 24 each 09/26/2024 2:07 PM EST 4 03/20/20 25 Discontin ued(Thera py completed ) Active Problems Problem Noted Date Diagnosed Date Mixed hyperlipidemia 03/20/2025 Hypertension 03/20/2025 Family history of coronary artery disease 2024 COPD (chronic obstructive pu lmonary disease) ([facility] V24, [facility] V28) 03/20/2025 Encounters Date Type Department Care Team Description 03/20/2025 11:30 AM EDT Office Visit [facility] [place] [address] [address] Ginette Lim NP Hypertension, unspecified type (Primary Dx); Mixed hyperlipidemia; Family history of coronary artery disease from Last 3 Months Immunizations Name Administration Dates Next Due [facility] SARS-CoV-2 COVID-19, mRNA, LNP-S, preservative free 03/31/2022,09/27/2021 [facility] SARS-CoV-2 COVID-19, mRNA, LNP-S, preservative free 02/08/2021,12/23/2020 Surgical History Surgery Date Site/Laterality Comments BREAST LUMPECTOMY COLONOSCOPY BUNIONECTOMY HYSTERECTOMY KNEE ARTHROSCOPY Right KNEE ARTHROPLASTY 11/19/2020 - 11/18/2021 Right TRIGGER FINGER RELEASE Medical History Medical History Date Comments Cancer ([facility] V24, [facility] V28) 2011 RT BREAST- MELISSA AND RAD [place] COPD (chronic obstructive pu lmonary disease) ([facility] V24, [facility] V28) DVT (deep venous thrombosis) ([facility] V24, [facility] V28) COUMADIN [place] Depression Shortness of breath GERD (gastroesophageal reflux disease) Hyperlipidemia Disease of thyroid gland Peripheral neuropathy Urinary incontinence AND URGENCY Social History Tobacco Use Types Packs/Day Years Used Date Smoking Tobacco: Former Cigarettes Passive Smoke Exposure: Past Smokeless Tobacco: Never Tobacco Cessation:Counseling Given: Not Answered Comments:1 PPD/ 30 YEARS, QUIT 1993 Alcohol Use Standard Drinks/Week Comments Not [...] AM EST Sexual Orientation Not on file Obstetrics History Last Filed Vital Signs Vital Sign Reading Time Taken Comments Blood Pressure 142/84 03/20/2025 11:34 AM EDT Ri ght arm Pulse 73 03/20/2025 11:32 AM EDT Temperature 37.1 ??C (98.8 ??F) 09/26/2024 8:51 AM ES T Respiratory Rate 18 09/26/2024 8:51 AM EST Oxygen Saturation 98% 03/20/2025 11:32 AM EDT Inhaled Oxygen Concentration - - Weight 79.4 kg (175 lb) 03/20/2025 11:32 AM EDT Height 163.8 cm (5' 4.5 ) 03/20/2025 11:32 AM ED T Body Mass Index 29.57 03/20/2025 11:32 AM EDT Plan of Treatment Upcoming Encounters Date Type Department Care Team (Late st Contact Info) Description 05/26/2025 1:00 PM EDT [facility] Visit [facility] [place] [address] [facility] [address] [place] [phone] Sarah Gonzalez MD [address] [place] [address] Health Maintenance Due Date Last Done Comments DTaP,Tdap,and Td Vaccines (1 - Tdap) 02/12/1963 Pneumococcal Vaccine: 50+ Years (1 of 2 - PCV) 02/12/1963 Zoster Vaccines (1 of 2) 02/12/1994 RSV Immunization Adult Patients (1 - 1-dose 75+ series) 02/12/2019 COVID-19 Vaccine ( - season) 2024 03/31/2022, 09/27/2021, 02/08/2021, Additional history exists Cholesterol Screening (Lipid Panel) 09/03/2024 Depression Screening 09/03/2024 Medicare Annual Wellness Visit 09/03/2024 Osteoporosis Screening (Bone Density Screening) 09/03/2024 Social Influencers of Health Screening 09/03/2024 Influenza Vaccine (Season Ended) 2025 Hypertension/CHF/CAD Annual BMP Blood Test 09/10/2025 09/10/2024, 12/11/2021, 01/11/2021 Falls Risk Assessment 09/25/2025 09/25/2024 HIB Vaccines Aged Out No longer eligi ble based on patient's age to complete this topic HPV Vaccines Aged Out No longer eligi ble based on patient's age to complete this topic Hepatitis A Vaccines Aged Out No long er eligible based on patient's age to complete this topic Hepatitis B Vaccines Aged Out No long er eligible based on patient's age to complete this topic IPV Vaccines Aged Out No longer eligi ble based on patient's age to complete this topic MMR Vaccines Aged Out No longer eligi ble based on patient's age to complete this topic Meningococcal ACWY Vaccine Aged Out N o longer eligible based on patient's age to complete this topic Meningococcal B Vaccine Aged Out No l onger eligible based on patient's age to complete this topic RSV Immunization Patients Under 20 months Aged Out No longer eligible based on patient's age to complete this topic Varicella Vaccines Aged Out No longer eligible based on patient's age to complete this topic Medical Devices Implanted Type Area Sharepoint Application Architect Device Identifier Shelf Expiration Date Model / Serial / Lot Knee Insrt Cs X3 Sz4 11mm - [id number] Implanted:Qty: 1 on 09/24/2024 by Daniel Kay MD at [facility] Knee Left: Knee [employer] [id number] 05/06/2029 5531-G-41 1 / / [id number] Knee Bsplt Triathlon Ti Sz 4 - [id number] Implanted:Qty: 1 on 09/24/2024 by Daniel Kay MD at [facility] Joints Knee Left: Knee [employer] [id number] 07/02/2029 5536-B-40 0 / / [id number] Knee Fem Bsplt Beaded W/Pa Sz4 L - [id number] Implanted:Qty: 1 on 09/24/2024 by Daniel Kay MD at [facility] Knee Left: Knee [employer] [id number] 07/31/2029 5517-F-40 1 / / [id number] Knee Ptla Asym Tritanium 29x9 - [id number] Implanted:Qty: 1 on 09/24/2024 by Daniel Kay MD at [facility] Knee Left: Knee [employer] [id number] 06/26/2029 5552-L-29 9 / / [id number] Component Femoral Posterior Stabilized Rt Size 4 Beaded W\Pe - [id number] Implanted:Qty: 1 on 01/24/2021 by Daniel Kay MD Right: Knee [employer] [id number] 07/19/2024 5516-F-40 2 / / [id number] Triathlon Tritanium Baseplate Size 5 - [id number] Implanted:Qty: 1 on 01/24/2021 by Daniel Kay MD Right: Knee [employer] [id number] 10/15/2025 5536-B-50 0 / / [id number] Insert Triathlon 5 11mm Posterior Stabilized Bearing X3 - [id number] Implanted:Qty: 1 on 01/24/2021 by Daniel Kay MD Right: Knee [employer] [id number] 11/24/2024 5532-G-51 [id number] Tritanium Asymmetric Metal Backed Patella 29mm - [id number] Implanted:Qty: 1 on 01/24/2021 by Daniel Kay MD Right: Knee [employer] [id number] 12/30/2025 5552-L-29 [id number] Procedures Procedure Name Priority Date/Time Associated Diagnosis Comments ANNUAL BMP BLOOD TEST Routine 09/10/2024 from Last 3 Months or Most Recently Relevant to Health Maintenance Results * Annual BMP Blood Test (09/10/2024) Annual BMP Blood Test abstracted Historical Provider HEALTH MAINTENANCE Final Result from Last 3 Months or Most Recently Relevant to Health Maintenance Insurance [employer] MEDICARE ADVANTAGE Advance Directives * Full Code - Confirmed (Latest Code Status on File) Date Activated Date Inactivated Comments 09/24/2024 2:14 PM 09/26/2024 4:[address] atus was ascertained in the following way: Code status discussion: per living will or healthcare instructions To update the patient's code status, place a code status order. Do not modify or discontinue any currently active code status orders. * Full Code - Confirmed Date Activated Date Inactivated Comments 09/24/2024 8:36 AM 09/24/2024 2:[address] atus was ascertained in the following way: Code status discussion: discussion with patient To update the patient's code status, place a code status order. Do not modify or discontinue any currently active code status orders. Care Teams Bottom Buffer Relationship Specialty Start Date End Date Catrachito Curran DO [address] [place] [phone] PCP - General Internal Medicine 12/30/20
--- OUTSIDE RECORDS SUMMARY | 2025-03-27 14:41 | XMS_ITS | Data Portability ---
Author Organization [facility], OFFICE Address [address] [place] [phone] Assessment Encounter Date Assessment Date Assessment LastModified by Organization Details LastModified Time 12/20/2020 12/20/2020 We discussed the options related to her treatment. ? ? ? Mrs. 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 Clearly right total knee arthroplasty would be a reasonable treatment alternative for her. ? ? ? We discussed the issues related to total hip arthroplasty in a lot of detail today including the preoperative process, the operative techniques, less invasive techniques, computer-assisted techniques, the types of implants, and the perioperative risks. ? ? ? In addition, we discussed the typical hospitalization course following surgery and reasonable expectations for recovery, outcome, activity level, and long-term followup. ? ? ? We also discussed issues related to her flexion contracture, COPD, and history of a DVT following knee arthroscopy. She is interested in proceeding, and we will begin to make arrangements. This visit was conducted as a real-time telehealth interactive visit during this the national emergency and ongoing COVID-19 pandemic. She was identified and consented to this telehealth visit. She was at her home and I was at my home office. I spent a total of 30 minutes during this clinical encounter. Greater than 50% of the time was devoted to counseling and coordinating care. This included reviewing records and pertinent studies, discussing diagnostic evaluation and workup, planning therapeutic interventions, and formulating the future disposition of care. sbm Not available 12/20/2020 11:49:31 Plan of Treatment Reminders Order Date Submit Date Provider Last Modified By Organization Details Last Modified Time Details Appointments None record ed. Lab None record ed. Referral None record ed. Procedures None record ed. Surgeries None record ed. Imaging None record ed. Medication Orders None record ed. Patient TargetsNo targets recorded. Patient InstructionsNo instructions recorded. Reason for Referral None Reported. Procedures Surgical History Date Name Laterality Status Provider Name and Address Organization Details Recorded Time hysterectomy completed Star Gibson MD [address], [place], [address], [place] [facility] 12/20/2020 11:44:35 Unlisted procedure breast completed Star Gibson MD [address], [place], [address], [place] [facility] 12/20/2020 11:44:52 excision of bunion completed Star Gibson MD [address], [place], [address], [place] [facility] 12/20/2020 11:45:07 Knee arthroscopy/surge ry completed Star Gibson MD [address], [place], [address], [place] [facility] 12/20/2020 11:46:03 Imaging Results None recorded. Procedure Notes None recorded. Medical Equipment None Reported. Allergies No known drug allergies Medications Name Sig Start Date Stop Date Status Note LastModified by Organization Details LastModified Time amoxicillin 500 mg capsule TAKE 1 CAPSULE BY MOUTH 3 TIMES A DAY active Not Available Not Available No t Available venlafaxine ER 75 mg capsule,extend ed release 24 hr TAKE 2 CAPSULES BY MOUTH EVERY DAY WITH FOOD active Not Available Not Available No t Available atorvastatin 20 mg tablet TAKE 1 TABLET BY MOUTH EVERY DAY active Not Available Not Available No t Available trazodone 50 mg tablet TAKE 1 TABLET BY MOUTH EVERYDAY AT BEDTIME active Not Available Not Available No t Available levothyroxine 75 mcg tablet TAKE 1 TABLET BY MOUTH EVERY DAY IN THE MORNING ON EMPTY STOMACH active Not Available Not Available No t Available cephalexin 500 mg capsule TAKE 1 CAPSULE BY MOUTH TWICE A DAY FOR 10 DAYS active Not Available Not Available No t Available ibuprofen 600 mg tablet TAKE 1 TABLET BY MOUTH EVERY 4 TO 6 HOURS NEEDED FOR PAIN active Not Available Not Available No t Available doxycycline hyclate 100 mg tablet TAKE 2 TABLETS BY MOUTH ONCE active Not Available Not Available No t Available chlorhexidine gluconate 0.12 % mouthwash RINSE MOUTH WITH 15ML AND SPIT OUT 2 TIMES A DAY active Not Available Not Available No t Available Vitals Date Recorded Body height Body mass index (BMI) Body weight Provider Name and Address Organization Details Last Updated DateTime 12/20/2020 163.83 cm 29.1 kg/m2 78895.89 g Star Gibson MD [address] [facility] [address], [place], [address], [place] - [facility] 12/20/2020 11:38:49 Social History None recorded. Functional Status None recorded. Mental Status None recorded. Family History Relationship Description Onset Age of this Age Resolved Age Notes LastModified by Organization Details LastModified Time Father Coronary arterioscler osis sbm Not available 2020 11:46:32 Mother Alzheimer's disease sbm Not available 2020 11:47:06 Medical History Condition Response Heart Problems N Coronary Artery Disease N Gout N Anxiety/Depression N Blood Transfusion N Hernia N Migraines N Thyroid Problems Y COPD Y Pacemaker N Anemia N Heart Attack ([place]) N Ulcers N Diabetes N Bleeding Disorder N Orthotics N Arthritis N Seizures/Epilepsy N Blood Clot Y Tuberculosis N AIDS/HIV N Cancer N Stroke N Asthma N Peripheral Vascular Disease N High Cholesterol Y Hepatitis N Liver Disease N Rheumatoid Arthritis N Pulmonary Embolism N Hypertension N Osteoporosis N Kidney Disease N Gynecological HistoryNo gynecological history recorded. Obstetrics History GPAL:G 0 P 0 0 0 0 Past Encounters Encounter ID Performer Location Encounter Start Date Encounter Closed Date Diagnosis/Indication Diagnosis SNOMED-CT Code Diagnosis ICD10 Code Diagnosis Note [id number] Star Gibson MD [facility] [address] [place] [address] 12/20/2020 08:07:36 12/20/2020 12:46:21 Health Concerns Section Related Observation LastModified by Organization Detai ls LastModified Time None Recorded Concern Status LastModified by Organization Details LastModified Time None Recorded Advance Directives Directive None Recorded Payers Encounter Date Sequence Insurance Name Policy Number Policy [employer] Covered Member ID [employer] Member ID Guarantor Name 12/20/2020 1 [employer] (MEDICARE REPLACEMENT PPO) [id number] Miladis Geller [id number] Miladis Geller Notes Date Note Type Note Provider Name and Address Organization Details Recorded Time 12/20/2020 text/html KneeReported bypatient.Location :right Severity:mild as a baseline but wakes up at night sometimes. The biggest problem is the functional limitation of the flexion contracture. Alleviating Factors:rest; stretching Aggravating Factors:walking; going from sit to stand; upstairs; downstairs Associated Symptoms:no weakness; no numbness; no tingling; no swelling; no redness; no warmth; no ecchymosis; no catching/locking; no popping/clicking; no buckling; no grinding; no instability; no radiation down leg; no drainage; no fever; no chills; no weight loss; no change in bowel/bladder habits Prior Imaging:x ray Previous Injections:did not help Star Gibson MD [address] [place] [address],[place] [address], [place], [address], [place] - [facility] 12/20/2020 11:49:35 OBGyn Episode No OBEpisode recorded.
--- OUTSIDE RECORDS SUMMARY | 2025-03-27 14:41 | XMS_ITS | Encounter Summary ---
Author Organization [facility] Address [address] [place] [address] Care Team Providers Care Fisher Trot Line Name Role Phone Bina Catrachito Primary Care Provider [phone] Encounter Details Date Type Department Care Team [...] Description 05/26/2025 1:00 PM EDT Office Visit [facility] Cardiology - [place] [address] [phone] Sarah Gonzalez MD [address] [place] [address] documented as of this encounter Procedures Procedure [...] organization for a detailed fax or copy. ?? Normal myocardial perfusion study. ?? The patient underwent REST and STRESS SPECT Myocardial Perfusion Imaging with a Regadenoson stress test. ?? The left ventricular ejection fraction is normal (50-70%). LVEF = 74% at rest. LVEF = 78% during stress. ?? The left and right ventricular size is normal with normal wall motion. ?? This is a low risk study for cardiac events. 8 Procedure Note Clarence Navarrete MD - 09/20/2024 This is a summary report. The complete report is available in thepatient's medical record. If you cannot access the medical record, pleasecontact the sending organization for a detailed fax or copy. ?? Normal myocardial perfusion study. ?? The patient underwent REST and STRESS SPECT Myocardial Perfusion Imagingwith a Regadenoson stress test. ?? The left ventricular ejection fraction is normal (50-70%). LVEF = 74% atrest. LVEF = 78% during stress. ?? The left and right ventricular size is normal with normal wall motion. ?? This is a low risk study for cardiac events. 8 Sarah Gonzalez MD CV HISTORICAL CONV PROCE DURES Final Result documented in this encounter Visit Diagnoses Diagnosis Encounter for other preprocedural examination documented in this encounter Care Teams Fisher Trot Line Relationship Specialty Start Date End Date Catrachito Curran DO [address] [place] [phone] PCP - General Internal Medicine 12/30/20 documented as of this encounter
--- OUTSIDE RECORDS SUMMARY | 2025-03-27 14:41 | XMS_ITS | Encounter Summary ---
Author Organization [facility] Address [address] [place] [address] Care Team Providers Care Tacking Stitch Remover Name Role Phone Bina Catrachito Primary Care Provider [phone] Encounter Details Date Type Department Care Team [...] Description 05/26/2025 1:00 PM EDT Office Visit [facility] Cardiology - [place] [address] [phone] Sarah Gonzalez MD 19 [place] [address] documented as of this encounter Visit Diagnoses Not on filedocumented in this encounter Care Teams Tacking Stitch Remover Relationship Specialty Start Date End Date Catrachito Curran DO [address] [place] [phone] PCP - General Internal Medicine 12/30/20 documented as of this encounter
--- OUTSIDE RECORDS SUMMARY | 2025-03-27 14:41 | XMS_ITS | Encounter Summary ---
Author Organization [facility] Address [address] [place] [address] Care Team Providers Care Narcotics Agent Name Role Phone Bina Catrachito Primary Care Provider [phone] Encounter Details Date Type Department Care Team [...] EDT Office Visit [facility] [place] [address] [facility] [place] [address] [place] [address] Sarah Gonzalez MD [address] [place] [address] documented as of this encounter Procedures Procedure [...] malignancy. Severe tricompartmental degenerative OA left knee. ??Small joint effusion noted. Left ankle shows degenerative changes and osteopenia There is no evidence of fracture or destructive bony lesion. IMPRESSION: Severe tricompartmental degenerative OA and osteopenia left knee without fracture or destructive lesion. Report reviewed and signed by : Dr. Gigi Santamaria MD on 09/16/2024 3:00 PM. Workstation Name - [id number] Procedure Note Gigi Santamaria MD - 09/20/2024 [...] MD on 43:00 PM. Workstation Name - [id number] Daniel Kay MD IMG CT PROCEDURES Final Result documented in this encounter Visit Diagnoses Diagnosis Unilateral primary osteoarthritis, left knee Pain in left knee documented in this encounter Care Teams Narcotics Agent Relationship Specialty Start Date End Date Catrachito Curran DO [address] [place] [phone] PCP - General Internal Medicine 12/30/20 documented as of this encounter
--- OUTSIDE RECORDS SUMMARY | 2025-03-27 14:41 | XMS_ITS | Data Portability ---
Author Organization [facility] [employer] Address [address] [place] [address] Care Team Providers Care Water Treatment Operator Name Role Phone TAD ALEXANDER Primary Care Provider Assessment No assessment recorded. Plan of Treatment Reminders Order Date Submit Date Provider Last Modified By Organization Details Last Modified Time Details Appointments None recorded. Lab microorgani sm identificat ion, unspecified specimen 2022 023 [email or web address] [facility], [address] [place] [address], [address], 3 16:06:56 Referral None recorded. Procedures None recorded. Surgeries None recorded. Imaging None recorded. Medication Orders doxycycline hyclate 100 mg capsule 2022 023 [email or web address] [id number], [address] [place], [address], 3 16:19:45 Patient TargetsNo targets recorded. Patient Instructions Encounter Date Encounter Id Patient Instructions Last Modified By Organization Details Last Modified Time 03/18/2023 [id number] Ticks are small spider-like animals. They bite to fasten themselves onto your skin and feed on your blood. Ticks can carry diseases. But most ticks do not carry diseases, and most tick bites do not cause serious health problems. Some people may have an allergic reaction to a tick bite. This reaction may be mild, with symptoms like itching and swelling. In rare cases, a severe allergic reaction may occur. Most of the time, all you need to do for a tick bite is relieve any symptoms you may have. Put ice or a cold pack on the bite for 15 to 20 minutes once an hour. Put a thin cloth between the ice and your skin. Try an yxpo-bjs-jkjdhmu medicine to relieve itching, redness, swelling, and pain. Be safe with medicines. Read and follow all instructions on the label. Take an antihistamine medicine to help relieve itching, redness, and swelling. Use a spray of local anesthetic that contains benzocaine, such as Solarcaine. It may help relieve pain. If your skin reacts to the spray, stop using it. Put calamine lotion on the skin. It may help relieve itching. To avoid tick bites Avoid ticks: Learn where ticks are found in your community, and stay away from those areas if possible. Cover as much of your body as possible when you work or play in grassy or wooded areas. Use insect repellents, such as products containing DEET. You can spray them on your skin. Take steps to control ticks on your property if you live in an area where Lyme disease occurs. Clear leaves, brush, tall grasses, woodpiles, and stone fences from around your house and the edges of your yard or garden. This may help get rid of ticks. When you come in from outdoors, check your body for ticks, including your groin, head, and underarms. The ticks may be about the size of a sesame seed. If no one else can help you check for ticks on your scalp, comb your hair with a fine-tooth comb. If you find a tick, remove it quickly. Use tweezers to grasp the tick as close to its mouth (the part in your skin) as possible. Slowly pull the tick straight out? d o not twist or yank? u ntil its mouth releases from your skin. If the mouthparts break off and remain in the skin, remove them with tweezers or, if you are unable to remove them easily, leave them alone and let the skin heal. Talk to your health professional. Ticks can come into your house on clothing, outdoor gear, and pets. These ticks can fall off and attach to you. Check your clothing and outdoor gear. Remove any ticks you find. Then put your clothing in a clothes dryer on high heat for about 4 minutes to kill any ticks that might remain. Check your pets for ticks after they have been outdoors. Not available 03/18/2023 16:17:59 A skin abscess i s a bacterial infection that forms a pocket of pus. A boil is a kind of skin abscess. The doctor may have cut an opening in the abscess so that the pus can drain out. You may have gauze in the cut so that the abscess will stay open and keep draining. You may need antibiotics. You will need to follow up with your doctor to make sure the infection has gone away. The doctor has checked you carefully, but problems can develop later. If you notice any problems or new symptoms, get medical treatment right away. How can you care for yourself at home? Apply warm and dry compresses, a heating pad set on low, or a hot water bottle 3 or 4 times a day for pain. Keep a cloth between the heat source and your skin. If your doctor prescribed antibiotics, take them as directed. Do not stop taking them just because you feel better. You need to take the full course of antibiotics. Take pain medicines exactly as directed. If the doctor gave you a prescription medicine for pain, take it as prescribed. If you are not taking a prescription pain medicine, ask your doctor if you can take an kfxo-ebc-zjttxvd medicine. Keep your bandage clean and dry. Change the bandage whenever it gets wet or dirty, or at least one time a day. If the abscess was packed with gauze: Keep follow-up appointments to have the gauze changed or removed. If the doctor instructed you to remove the gauze, follow the instructions you were given for how to remove it. After the gauze is removed, soak the area in warm water for 15 to 20 minutes 2 times a day, until the wound closes. Not available 03/18/2023 16:15:19 03/22/2023 [id number] A skin abscess i s a bacterial infection that forms a pocket of pus. A boil is a kind of skin abscess. The doctor may have cut an opening in the abscess so that the pus can drain out. You may have gauze in the cut so that the abscess will stay open and keep draining. You may need antibiotics. You will need to follow up with your doctor to make sure the infection has gone away. The doctor has checked you carefully, but problems can develop later. If you notice any problems or new symptoms, get medical treatment right away. How can you care for yourself at home? Apply warm and dry compresses, a heating pad set on low, or a hot water bottle 3 or 4 times a day for pain. Keep a cloth between the heat source and your skin. If your doctor prescribed antibiotics, take them as directed. Do not stop taking them just because you feel better. You need to take the full course of antibiotics. Take pain medicines exactly as directed. If the doctor gave you a prescription medicine for pain, take it as prescribed. If you are not taking a prescription pain medicine, ask your doctor if you can take an ljkb-oza-ogzcgdt medicine. Keep your bandage clean and dry. Change the bandage whenever it gets wet or dirty, or at least one time a day. If the abscess was packed with gauze: Keep follow-up appointments to have the gauze changed or removed. If the doctor instructed you to remove the gauze, follow the instructions you were given for how to remove it. After the gauze is removed, soak the area in warm water for 15 to 20 minutes 2 times a day, until the wound closes. Not available 03/22/2023 08:48:04 Reason for Referral None Reported. Results Created Date Observation Date Name Description Value Unit Range Abnormal Flag Note LastModifiedBy Organization Detail LastModifiedTime 03/18/2003/20/2023 AEROB IC BACTE RIAL CULTU RE aerobic bacterial culture FINAL REPORT Not Available [facility] ([facility]) [address] [place], [address], 03/20/2023 16:06:56 03/18/2003/20/2023 AEROB IC BACTE RIAL CULTU RE result 1 MIXED SKIN KRISTEN Not Available [facility] ([facility]) [address] [place], [address], 03/20/2023 16:06:56 Result Notes None recorded. Problems Name Problem SNOMED Code Status Onset Date Resolution Date Notes Provider Name and Address Organization Details Recorded Time Hypothyroidism 49651148 Active 2022 [facility] 14:46:32 Hypercholestero lemia 39799929 Active 2022 [facility] 14:46:38 Depressive disorder 39078037 Active 2022 Fanta mendes [place] - [facility] 14:46:43 Problem Notes None recorded. Procedures Surgical History Date Name Laterality Status Provider Name and Address Organization Details Recorded Time 3 Wound Dressing completed Cassius Schwartz NP [address], [place], [address], [place] - [facility] 03/22/2023 08:47:17 3 I&D, with Packing completed Cassius Schwartz NP [address] [place], [place], [address], [place] - [facility] 03/18/2023 16:13:53 Knee arthroscopy/s urgery completed Fanta Florence PA - [facility] 03/18/2023 14:47:06 excision of bunion completed Fanta Florence PA - [facility] 03/18/2023 14:47:15 Imaging Results None recorded. Procedure Notes None recorded. Medical Equipment None Reported. Allergies No known drug allergies Medications Name Sig Start Date Stop Date Status Note LastModified by Organization Details LastModified Time venlafaxine ER 75 mg capsule,ext ended release 24 hr TAKE 2 CAPSULES WITH FOOD ORALLY ONCE A DAY FOR 90 DAYS active Not Available Not Available No t Available doxycycline hyclate 100 mg capsule Take 1 capsule twice a day by oral route with meals for 10 days. 2022 active Not Available Not Available Not Avai lable atorvastati n 20 mg tablet TAKE 1 TABLET BY MOUTH EVERY DAY active Not Available Not Available No t Available trazodone 50 mg tablet TAKE 1 TABLET BY MOUTH EVERYDAY AT BEDTIME active Not Available Not Available No t Available ibuprofen 800 mg tablet TAKE 1 TABLET BY MOUTH EVERY 8 HOURS WITH FOOD OR MILK NEEDED FOR 14 DAYS active Not Available Not Available No t Available levothyroxi ne 75 mcg tablet TAKE 1 TABLET BY MOUTH EVERY DAY IN THE MORNING ON EMPTY STOMACH active Not Available Not Available No t Available oxycodone-a cetaminophe n 5 mg-325 mg tablet TAKE 1 TABLET BY MOUTH EVERY 4-6 HOURS NEEDED FOR 10 DAYS 03/18 completed Not Available Not Available Not Available gabapentin 300 mg capsule TAKE 1 CAPSULE BY MOUTH ONCE A DAY AT NIGHT FOR 10 DAYS. active Not Available Not Available No t Available sertraline 50 mg tablet TAKE 1 TABLET BY MOUTH EVERY DAY FOR 30 DAYS 03/18 completed Not Available Not Available Not Available cyclobenzap rine 5 mg tablet TAKE 1 TABLET (5MG) BY MOUTH AT BEDTIME. active Not Available Not Available No t Available Lidocaine Pain Relief 4 % topical patch APPLY 1 PATCH TOPICALLY DAILY NEEDED FOR PAIN NOT COVERED 03/18 completed Not Available Not Available Not Available Vitals Date Recorded Body height Body mass index (BMI) Body weight Oxygen saturation Oxygen saturation in Arterial blood by Pulse oximetry Pain severity - 0-10 verbal numeric rating [Score] - Reported Respiratory rate Body temperature Heart rate Systolic blood pressure Diastolic blood pressure Provider Name and Address Organization Details Last Updated DateTime 3 162.56 cm 29.2 kg/m2 78231.7 g 100 % 100 % 6 20 /min 97.9 [degF] 52 /min 119 mm[Hg] 67 mm[Hg] Fanta Florence [facility] 14:49:35 Date Recorded Body height Body mass index (BMI) Body weight Pain severity - 0-10 verbal numeric rating [Score] - Reported Respiratory rate Heart rate Oxygen saturation Oxygen saturation in Arterial blood by Pulse oximetry Body temperature Systolic blood pressure Diastolic blood pressure Provider Name and Address Organization Details Last Updated DateTime 3 162.56 cm 29.2 kg/m2 19394.7 g 0 20 /min 74 /min 96 % 96 % 97.8 [degF] 137 mm[Hg] 72 mm[Hg] Fanta Florence [facility] 08:19:42 Social History Question Answer Notes LastModified by Organizat ion Details LastModified Time Tobacco Smoking Status Never Smoker Fanta mendes PA [facility] 03/18/2023 14:46:59 What Is Your Level Of Alcohol Consumption? None Information not available 03/18/2023 Have You Had Direct Contact, Or Contact During Intimacy, With Monkeypox Rash, Scabs, Or Body Fluids From A Person With Monkeypox? No Information not available 03/18/2023 Do You Use Any Illicit Or Recreational Drugs? No Information not available 03/18/2023 Have You Recently Traveled Abroad? No Information not available 03/18/2023 Do You Or Have You Ever Used Any Other Forms Of Tobacco Or Nicotine? No Information not available 03/18/2023 Sex: Unknown Functional Status None recorded. Mental Status None recorded. Family History Relationship Description Onset Age of this Age Resolved Age Notes LastModified by Organization Details LastModified Time Father No current problems or disability Not available 03/18 14:46:52 Mother No current problems or disability Not available 03/18 14:46:52 Medical History No medical history recorded. Gynecological HistoryNo gynecological history recorded. Obstetrics History GPAL:G 0 P 0 0 0 0 Immunizations Vaccine Type Date Status Note Provider Nam e and Address Organization Details Recorded Time Influenza, adjuvanted, quadrivalent, PF 09/27/2021 completed Fanta Naman null, PA - [facility] 03/18/2023 14:45:28 COVID-19, mRNA, LNP-S, PF, 100 mcg/0.5mL dose or 50 mcg/0.25mL dose 03/31/2022 completed Fanta Liberty null, PA - [facility] 03/18/2023 14:45:28 COVID-19, mRNA, LNP-S, PF, 100 mcg/0.5mL dose or 50 mcg/0.25mL dose 09/27/2021 completed Fanta Naman null, PA - [facility] 03/18/2023 14:45:28 COVID-19, mRNA, LNP-S, PF, 30 mcg/0.3 mL dose 12/23/2020 completed Fanta Naman null, PA - [facility] 03/18/2023 14:45:28 COVID-19, mRNA, LNP-S, PF, 30 mcg/0.3 mL dose 02/08/2021 completed Fanta Naman null, PA - [facility] 03/18/2023 14:45:28 Past Encounters Encounter ID Performer Location Encounter Start Date Encounter Closed Date Diagnosis/Indication Diagnosis SNOMED-CT Code Diagnosis ICD10 Code Diagnosis Note [id number] [address] [place] [address] 08/18/2019 10:09:44 08/18/2019 11:00:54 [id number] Cassius Schwartz NP [address] [place] [address] 03/18/2023 14:13:36 03/18/2023 16:18:52 Abscess of skin of left shoulder 5395256397 7390885 L02.414 Tick bite 30903019 W57.X XXA Puncture w ound of abdomen 692479197 S31.134A [id number] Cassius Schwartz NP [address] [place] [phone] 03/22/2023 08:06:13 03/22/2023 08:50:44 Abscess of shoulder 17469321 L02.419 Continue antibiotic s as prescribed . Health Concerns Section Related Observation LastModified by Organization Detai ls LastModified Time None Recorded Concern Status LastModified by Organization Details LastModified Time None Recorded Advance Directives Directive None Recorded Payers Insurance Date Sequence Insurance Name Policy Number Policy Degroot Covered Member ID Degroot Member ID Guarantor Name 03/22/2023 2 [place]: [employer] Miladis E Micanopy [id number] Miladis Duyen 03/18/2023 2 [facility]ERR[facility] (MEDICARE SUPPLEMENT) [id number] Miladis Duyen [id number] Miladis Duyen 03/18/2023 2 [employer] (MEDICARE REPLACEMENT PPO) [id number] Miladis E Duyen [id number] Miladis Duyen 03/22/2023 [employer] - SPECIALITY CLAIMS (MEDICARE DME REGION A) Miladis E Micanopy [id number] Miladis Micanopy 03/22/2023 1 [employer] (MEDICARE REPLACEMENT PPO) [id number] Miladis E Micanopy [id number] Miladis Duyen Notes Date Note Type Note Provider Name and Address Organization Details Recorded Time 03/18/2023 text/html AbscessReported bypatient.Location:ne ck; back Onset/Timing:sudden Duration:date of onset 03/08/2023 Quality:no warmth; no drainage;painful;tend erness;swelling;redne ss Severity:worsening Context:obese;celluli tis Associated Symptoms:no fever; no red streaking; no chills; no malaise; no headache; no enlarged lymph nodesNotes:4-5 cm left shoulder blade abscess , erythematous and tender to palpation. Cassius Schwartz NP [address] [facility] [address], [place], [address], [place] - [facility] 03/18/2023 16:20:17 03/22/2023 text/html AbscessReported bypatient.Location:ne ; back Onset/Timing:sudden; follow up visit after incision and drainage of left shoulder blade abscess. Duration:date of onset 03/08/2023 Quality:no warmth;painful;tender ness;swelling;redness ;drainage Severity:improving Context:obese;celluli tis Associated Symptoms:no fever; no red streaking; no chills; no malaise; no headache; no enlarged lymph nodesNotes:4-5 cm left shoulder blade abscess , erythematous and tender to palpation. Cassius Schwartz NP [address] [place], [address], [place] [facility] 03/22/2023 08:48:31 OBGyn Episode No OBEpisode recorded.
--- OUTSIDE RECORDS SUMMARY | 2025-03-27 14:41 | XMS_ITS | Encounter Summary ---
Author Organization [facility] Address [address] [place] [address] Care Team Providers Care Guitar Maker Hand Name Role Phone Bina Catrachito Primary Care Provider [phone] Encounter Details Date Type Department Care Team (Late st Contact Info) Description 09/04/2024 1:05 PM EDT Hospital Encounter TH HISTORIC ENCOUNTERS EASTERN CONVERSION ONLY Sarah Gonzalez MD [address] [place] [address] Social History Tobacco Use Types Packs/Day Years [...] 1:59 PM Encounter Date: 09/04/2024 Status: Signed Perfumer: Sarah Gonzalez MD (Physician) Cardiology Attending New [...] years old. Her father also of an [place]. She remains reasonably physically active including gardening, goes to [employer] For exercise, twice a week, she walks [...] PO Take by mouth daily. ? Lactobacillus-Inulin ([facility]) CAPS Take 200 mg [...] test including a Lexiscan pharmacologic stress protocol. ?? The left ventricular ejection fraction is hyperdynamic [...] 05/26/2025 1:00 PM EDT Office Visit [facility] [place] [address] [phone] Sarah Gonzalez MD [address] [place] [address] documented as of this encounter Procedures Procedure Name Priority Date/Time Associated Diagnosis Comments ECG 09/04/2024 documented in this encounter Results * ECG (09/04/2024) us Provider Onbase CV HISTORICAL CONV PROCEDURES Final Result documented in this encounter Visit Diagnoses Not on filedocumented in this encounter Care Teams Guitar Maker Hand Relationship Specialty Start Date End Date Catrachito Curran DO [address] [place] [phone] PCP - General Internal Medicine 12/30/20 documented as of this encounter
--- OUTSIDE RECORDS SUMMARY | 2025-03-27 14:41 | XMS_ITS | Encounter Summary ---
Author Organization [facility] Address [address] [place] [address] Care Team Providers Care Costume Seamstress Name Role Phone Catrachito Curran DO Primary Care Provider [phone] Reason for Visit * Auth/Cert Inpatient Observation or Outpatient Surgery Specialty Diagnoses / Procedures Referred By Hugo gil Referred To Contact Diagnoses Degenerative arthritis of left knee Degenerative arthritis of left knee [M17.12] Procedures VT ARTHRP KNE CONDYLE&PLATU MEDIAL&LAT COMPARTMENTS REPLACEMENT TOTAL KNEE WITH KELLY [facility] [address] [place] [address] Referral ID Status Reason Start Date Expiration Date Visits Re quested Visits Authorized [id number] 1 1 Encounter Details Date Type Department Care Team Description 09/22/2024 9:30 AM EST Hospital Encounter [facility] [place] [address] [place] [id number] Daniel Kay MD Social History Tobacco Use [...] on filedocumented in this encounter Care Teams Costume Seamstress Relationship Specialty Start Date End Date Catrachito Curran DO [address] [place] [phone] PCP - General Internal Medicine 12/30/20 documented as of this encounter
== END 2025-03-27 15:21 | disposition home or self-care (01) ==
LOC: HO.HMCSH 14:38
PROVIDERS: PCP Internal Medicine; Visit Provider Physician Assistant Medical
DX: Z76.89 Persons encountering health services in other specified circumstances (principal); K21.9 Gastro-esophageal reflux disease without esophagitis; R10.13 Epigastric pain; R32 Unspecified urinary incontinence; Z87.891 Personal history of nicotine dependence; J45.909 Unspecified asthma, uncomplicated; Z85.3 Personal history of malignant neoplasm of breast; E66.9 Obesity, unspecified

== ENCOUNTER → 2025-03-27 14:38 | Outpatient (BNVA) | payer MEDICARE, SELFPAY | PROVIDERS: PCP Internal Medicine; Visit Provider Physician Assistant Medical | DX: K21.9 Gastro-esophageal reflux disease without esophagitis (principal); R32 Unspecified urinary incontinence; R39.15 Urgency of urination; R35.0 Frequency of micturition; J45.909 Unspecified asthma, uncomplicated; R10.13 Epigastric pain; E66.9 Obesity, unspecified; Z68.30 Body mass index [BMI] 30.0-30.9, adult; Z87.891 Personal history of nicotine dependence; Z85.3 Personal history of malignant neoplasm of breast; Z76.89 Persons encountering health services in other specified circumstances | CPT/HCPCS: 96127; 99212 ==

== ENCOUNTER 2025-04-08 10:22 | Outpatient (REF) | payer MEDICARE, SELFPAY ==
--- OUTSIDE RECORDS SUMMARY | 2025-04-08 11:52 | XMS_ITS | Encounter Summary ---
Author Organization [facility] Address [address] [place] [address] Care Team Providers Care Hr Leader Name Role Phone Catrachito Curran DO Primary Care Provider [phone] Reason for Visit * Auth/Cert Inpatient Observation or Outpatient Surgery Specialty Diagnoses / Procedures Referred By Hugo gil Referred To Contact Diagnoses Degenerative arthritis of left knee Degenerative arthritis of left knee [M17.12] Procedures UT ARTHRP KNE CONDYLE&PLATU MEDIAL&LAT COMPARTMENTS REPLACEMENT TOTAL KNEE WITH KELLY [facility] 4-[address] [place] [address] Referral ID Status Reason Start Date Expiration Date Visits Re quested Visits Authorized [id number] 1 1 Encounter Details Date Type Department Care Team Description 09/22/2024 9:30 AM EST Hospital Encounter CT Joint Replacement [facility] [address] [place] [address] Daniel Kay MD Social History Tobacco Use [...] on filedocumented in this encounter Care Teams Hr Leader Relationship Specialty Start Date End Date Catrachito Curran DO [address] [place] [phone] PCP - General Internal Medicine 12/30/20 documented as of this encounter
--- OUTSIDE RECORDS SUMMARY | 2025-04-08 11:52 | XMS_ITS | Data Portability ---
Author Organization [facility] Address [address] [place] [phone] Assessment Encounter Date Assessment Date Assessment LastModified [...] Star Gibson MD [address], [place], [address], [place] - [facility]Assistd and [facility] 12/20/2020 11:44:35 Unlisted procedure breast completed Star Gibson MD [address], [place], [address], [place] Comp-Assistd and Rcnstrctive Surgry 12/20/2020 11:44:52 excision of bunion completed Star Gibson MD [address], [place], [address], [place] Comp-Assistd and Rcnstrctive Surgry 12/20/2020 11:45:07 Knee arthroscopy/surge ry completed Star Gibson MD [address], [place], [address], [place] Comp-Assistd and Rcnstrctive Surgry 12/20/2020 [...] Updated DateTime 12/20/2020 163.83 cm 29.1 kg/m2 19734.89 g Star Gibson MD [address] [facility] [address], [place], [address], [place] - Comp-Assistd and Rcnstrctive Surgry 12/20/2020 11:38:49 Social History None recorded. Functional Status None recorded. Mental Status None recorded. Family History Relationship Description Onset Age of this Age Resolved Age Notes LastModified by Organization Details LastModified Time Father Coronary arterioscler osis sbm Not available 2020 11:46:32 Mother Alzheimer's disease sbm Not available 2020 11:47:06 Medical History Condition Response Coronary Artery Disease N Anxiety/Depression N Gout N Blood Transfusion N Hernia N COPD Y Pacemaker N Orthotics N Arthritis N Blood Clot Y Cancer N Stroke N High Cholesterol Y Liver Disease N Rheumatoid Arthritis N Kidney Disease N Heart Problems N Migraines N Thyroid Problems Y Anemia N Ulcers N Heart Attack ([place]) N Diabetes N Bleeding Disorder N Seizures/Epilepsy N Tuberculosis N AIDS/HIV N Asthma N Peripheral Vascular Disease N Hepatitis N Pulmonary Embolism N Hypertension N Osteoporosis N Gynecological HistoryNo gynecological history recorded. Obstetrics History GPAL:G 0 P 0 0 0 0 Past Encounters Encounter ID Performer Location Encounter Start Date Encounter Closed Date Diagnosis/Indication Diagnosis SNOMED-CT Code Diagnosis ICD10 Code Diagnosis Note [id number] Star Gibson MD [facility] [address] [place] [address] 12/20/2020 08:07:36 12/20/2020 12:46:21 Health Concerns Section Related Observation LastModified by Organization Detai ls LastModified Time None Recorded Concern Status LastModified by Organization Details LastModified Time None Recorded Advance Directives Directive None Recorded Payers Encounter Date Sequence Insurance Name Policy Number Policy Degroot Covered Member ID Degroot Member ID Guarantor Name 12/20/2020 1 [employer] (MEDICARE REPLACEMENT/ ADVANTAGE - PPO) [id number] Miladis Geller MEBVBWCC Miladis Geller Notes Date [...] Previous Injections:did not help Star Gibson MD [address] [place] [address],[facility] [address], [place], [address], [place] - Comp-Assistd and Rcnstrctive Surgry 12/20/2020 11:49:35 OBGyn Episode No OBEpisode recorded.
--- OUTSIDE RECORDS SUMMARY | 2025-04-08 11:52 | XMS_ITS | Encounter Summary ---
Author Organization [facility] Address [address] [place] [address] Care Team Providers Care Store Merchandiser Name Role Phone Bina Catrachito Primary Care Provider [phone] Encounter Details Date Type Department Care Team [...] EDT Office Visit [facility] [place] [address] [facility] [address] [place] [address] Sarah Gonzalez MD [address] [place] [address] documented as of this encounter Procedures Procedure [...] on 09/16/2024 3:00 PM. Workstation Name - [id number] Procedure Note Gigi Santamaria MD - 09/20/2024 [...] MD on 43:00 PM. Workstation Name - [id number] Daniel Kay MD IMG CT PROCEDURES Final Result documented in this encounter Visit Diagnoses Diagnosis Unilateral primary osteoarthritis, left knee Pain in left knee documented in this encounter Care Teams Store Merchandiser Relationship Specialty Start Date End Date Catrachito Curran DO [address] [place] [phone] PCP - General Internal Medicine 12/30/20 documented as of this encounter
--- OUTSIDE RECORDS SUMMARY | 2025-04-08 11:52 | XMS_ITS | Encounter Summary ---
Author Organization [facility] Address [address] [place] [address] Care Team Providers Care Certified Nursing Assistant Instructor Name Role Phone Bina Catrachito Primary Care Provider [phone] Encounter Details Date Type Department Care Team [...] Description 05/26/2025 1:00 PM EDT Office Visit [facility] - [place] [address] [address] Sarah Gonzalez MD [address] [place] [address] documented as of this encounter Visit Diagnoses Not on filedocumented in this encounter Care Teams Certified Nursing Assistant Instructor Relationship Specialty Start Date End Date Catrachito Curran DO [address] [place] [phone] PCP - General Internal Medicine 12/30/20 documented as of this encounter
--- OUTSIDE RECORDS SUMMARY | 2025-04-08 11:52 | XMS_ITS | Encounter Summary ---
Author Organization [facility] Address [address] [place] [address] Care Team Providers Care Home Health Travel Ot Name Role Phone Bina Catrachito Primary Care Provider [phone] Encounter Details Date Type Department Care Team (Late st Contact Info) Description 09/04/2024 1:05 PM EDT Hospital Encounter TH HISTORIC ENCOUNTERS EASTERN CONVERSION ONLY Sarah Gonzalez MD [address] [place] [address] Social History Tobacco Use Types Packs/Day Years [...] 1:59 PM Encounter Date: 09/04/2024 Status: Signed Personal Protection Specialist: Sarah Gonzalez MD (Physician) Cardiology Attending New [...] years old. Her father also of an [place]. She remains reasonably physically active including gardening, goes to [employer] For exercise, twice a week, she walks [...] PO Take by mouth daily. ? Lactobacillus-Inulin ([facility]) CAPS Take 200 mg by [...] 05/26/2025 1:00 PM EDT Office Visit [facility] [place] [facility] [place] [address] [phone] Sarah Gonzalez MD [address] [place] [address] documented as of this encounter Procedures Procedure Name Priority Date/Time Associated Diagnosis Comments ECG 09/04/2024 documented in this encounter Results * ECG (09/04/2024) us Provider Onbase CV HISTORICAL CONV PROCEDURES Final Result documented in this encounter Visit Diagnoses Not on filedocumented in this encounter Care Teams Home Health Travel Ot Relationship Specialty Start Date End Date Catrachito Curran DO [address] [place] [phone] PCP - General Internal Medicine 12/30/20 documented as of this encounter
--- OUTSIDE RECORDS SUMMARY | 2025-04-08 11:52 | XMS_ITS | Data Portability ---
Author Organization [facility] Address [address] [place] [address] Care Team Providers Care Directional Bore Operator Name Role Phone TAD ALEXANDER Primary Care Provider [phone] Assessment No assessment recorded. Plan of Treatment Reminders Order Date Submit Date Provider Last Modified By Organization Details Last Modified Time Details Appointments None recorded. Lab microorgani sm identificat ion, unspecified specimen 2022 023 [place] [facility], [address] [place] [address], [address], 3 16:06:56 Referral None recorded. Procedures None recorded. Surgeries None recorded. Imaging None recorded. Medication Orders doxycycline hyclate 100 mg capsule 2022 023 [email or web address] [facility][id number], [address] [place], [address], 3 16:19:45 Patient TargetsNo targets recorded. Patient Instructions Encounter Date Encounter Id Patient Instructions Last Modified By Organization Details Last Modified Time 03/18/2023 [id number] Ticks are small spider-like animals. They bite [...] the ice and your skin. Try an vltl-tzy-hgrmglk medicine to relieve itching, redness, swelling, and [...] your doctor if you can take an gsjh-suf-mafehxp medicine. Keep your bandage clean and dry. [...] wound closes. Not available 03/18/2023 16:15:19 03/22/2023 [id number] A skin abscess i s a bacterial [...] your doctor if you can take an hjtw-pzi-znocdzl medicine. Keep your bandage clean and dry. [...] bacterial culture FINAL REPORT Not Available [facility] ([facility]) [address] [place], [address], 03/20/2023 16:06:56 03/18/2003/20/2023 AEROB IC BACTE RIAL CULTU RE result 1 MIXED SKIN KRISTEN Not Available [facility] ([facility]) [address] [place], [address], 03/20/2023 16:06:56 Result Notes None recorded. Problems Name Problem SNOMED Code Status Onset Date Resolution Date Notes Provider Name and Address Organization Details Recorded Time Hypothyroidism 48637627 Active 2022 [facility] 3 14:46:32 Hypercholestero lemia 76010214 Active 2022 [facility] 14:46:38 Depressive disorder 97000569 Active 2022 Fanta mendes [place] - [facility] 14:46:43 Problem Notes None recorded. Procedures Surgical History Date Name Laterality Status Provider Name and Address Organization Details Recorded Time 3 Wound Dressing completed Cassius Schwartz NP [address], [place], [address], [place] - [facility] 03/22/2023 08:47:17 3 I&D, with Packing completed Cassius Schwartz NP [address], [place], [address], [place] - [facility] 03/18/2023 16:13:53 Knee [...] saturation in Arterial blood by Pulse oximetry Respiratory rate Body temperature Heart rate Systolic blood pressure Diastolic blood pressure Provider Name and Address Organization Details Last Updated DateTime 3 162.56 cm 29.2 kg/m2 44119.7 g 100 % 100 % 20 /min 97.9 [degF] 52 /min 119 mm[Hg] 67 mm[Hg] Fanta Florence PA - [facility] 3 14:49:35 Date Recorded Body height Body mass index (BMI) Body weight Respiratory rate Heart rate Oxygen saturation Oxygen saturation in Arterial blood by Pulse oximetry Body temperature Systolic blood pressure Diastolic blood pressure Provider Name and Address Organization Details Last Updated DateTime 3 162.56 cm 29.2 kg/m2 56265.7 g 20 /min 74 /min 96 % 96 % 97.8 [degF] 137 mm[Hg] 72 mm[Hg] Fanta Florence PA - [facility] 3 08:19:42 Social History Question Answer Notes LastModified by [employer] Details LastModified Time Tobacco Smoking Status Never Smoker Fanta mendes PA - [facility] 03/18/2023 14:46:59 Have You Had Direct Contact, Or Contact During Intimacy, With Monkeypox Rash, Scabs, Or Body Fluids From A Person With Monkeypox? No Information not available 03/18/2023 Have You Recently Traveled Abroad? No Information not available 03/18/2023 Sex: Unknown Functional Status Question Answer Note LastModified by [employer] Details LastModified Time Do you use any illicit or recreational drugs? No Information not available 03/18/2023 Do you or have you ever used any other forms of tobacco or nicotine? No Information not available 03/18/2023 What is your level of alcohol consumption? None Information not available 03/18/2023 Mental Status None recorded. Family History Relationship [...] Influenza, adjuvanted, quadrivalent, PF 09/27/2021 completed Fanta Kirk null, [place] - [facility] 03/18/2023 14:45:28 COVID-19, mRNA, LNP-S, PF, 100 mcg/0.5mL dose or 50 mcg/0.25mL dose 03/31/2022 completed Fanta Kirk null, PA - [facility] 03/18/2023 14:45:28 COVID-19, mRNA, LNP-S, PF, 100 mcg/0.5mL dose or 50 mcg/0.25mL dose 09/27/2021 completed Fanta Kirk null, PA - [facility] 03/18/2023 14:45:28 COVID-19, mRNA, LNP-S, PF, 30 mcg/0.3 mL dose 12/23/2020 completed Fanta Naman null, [place] - [facility] 03/18/2023 14:45:28 COVID-19, mRNA, LNP-S, PF, 30 mcg/0.3 mL dose 02/08/2021 completed Fanta Kirk null, PA - [facility] 03/18/2023 14:45:28 Past Encounters Encounter ID Performer Location Encounter Start Date Encounter Closed Date Diagnosis/Indication Diagnosis SNOMED-CT Code Diagnosis ICD10 Code Diagnosis Note [id number] [address] [facility] [facility] [address] [place] [address] 08/18/2019 10:09:44 08/18/2019 11:00:54 [id number] Cassius Schwartz NP [address] [place] [address] 03/18/2023 14:13:36 03/18/2023 16:18:52 Abscess of skin of left shoulder 4112844661 3455834 L02.414 Tick bite 57831043 W57.X XXA Puncture w ound of abdomen 119411050 S31.134A [id number] Cassius Schwartz NP [address] [place] [address] 03/22/2023 08:06:13 03/22/2023 08:50:44 Abscess of shoulder 44289070 L02.419 Continue antibiotic s as prescribed . Health Concerns Section Related Observation LastModified by Organization Detai ls LastModified Time None Recorded Concern Status LastModified by Organization Details LastModified Time None Recorded Advance Directives Directive None Recorded Payers Insurance Date Sequence Insurance Name Policy Number Policy Degroot Covered Member ID Degroot Member ID Guarantor Name 03/22/2023 2 [place]: [employer] Miladis E Herron [id number] Miladis Herron 03/18/2023 2 [facility] PLAN - PREFERRED (MEDICARE SUPPLEMENT) [id number] Miladis Herron [id number] Miladis Herron 03/18/2023 2 [employer] (MEDICARE REPLACEMENT/ ADVANTAGE - PPO) [id number] Miladis E Herron MEBVBWCC Miladis Herron 03/22/2023 [facility] - SPECIALITY CLAIMS (MEDICARE DME REGION A) Miladis E Herron [id number] Miladis Duyen 03/22/2023 1 [employer] (MEDICARE REPLACEMENT/ ADVANTAGE - PPO) [id number] Miladis E Duyen [id number] Miladis Duyen Notes Date Note Type Note [...] to palpation. Cassius Schwartz NP [address] [place], [address], [facility] 03/18/2023 16:20:17 03/22/2023 text/html AbscessReported bypatient.Location:ne ck; back Onset/Timing:sudden; follow up visit after incision and drainage of left shoulder blade abscess. Duration:date of onset 03/08/2023 Quality:no warmth;painful;tender ness;swelling;redness ;drainage Severity:improving Context:obese;celluli tis Associated Symptoms:no fever; no red streaking; no chills; no malaise; no headache; no enlarged lymph nodesNotes:4-5 cm left shoulder blade abscess , erythematous and tender to palpation. Cassius Schwartz NP [address] [place], [address], [facility] 03/22/2023 08:48:31 OBGyn Episode No OBEpisode recorded.
--- OUTSIDE RECORDS SUMMARY | 2025-04-08 11:52 | XMS_ITS | Encounter Summary ---
Author Organization [facility] Address [address] [place] [address] Care Team Providers Care Realtime Reporter Name Role Phone Unavailable Primary Care Provider Unavailabl e Prior Encounters Date Type Department Care Team Description 01/23/2025 2:00 PM PST Office Visit [facility] [address] [facility] [place] [address] [place] [phone] Kathy Guerrero DMD Dental caries, unspecified (Primary Dx); Encounter for dental examination and cleaning without abnormal findings 01/06/2025 1:30 PM PST Office Visit [facility] [address] [facility] [place] [address] [place] [phone] Garcia Moody DDS 12/10/2024 Orders Only [facility] [address] [facility] [place] [address] [place] [phone] Kathy Guerrero DMD 11/28/2024 2:00 PM PST Office Visit [facility] [address] [facility] [place] [address] [place] [phone] Kathy Guerrero DMD Last Filed Vital Signs Vital Sign Reading Time Taken Comments Blood Pressure 161/102 01/06/2025 2:01 PM PST Pulse 70 01/06/2025 2:01 PM PST Temperature - - Respiratory Rate - - Oxygen Saturation - - Inhaled Oxygen Concentration - - Weight 77.1 kg (170 lb) 01/06/2025 2:01 PM PST Height 162.6 cm (5' 4 ) 01/06/2025 2:01 PM PST Body Mass Index 29.18 01/06/2025 2:01 PM PST Plan of Treatment Not on file Procedures Procedure Name Priority Date/Time Associated Diagnosis Comments PROPHYLAXIS - ADULT Routine 01/23/2025 2 :00 PM PST Encounter for dental examination and cleaning without abnormal findings ORAL HYGIENE INSTRUCTIONS Routine 2024 2:00 PM PST INTRAORAL PHOTO Routine 01/23/2025 2:00 PM PST INTRAORAL PHOTO Routine 01/23/2025 2:00 PM PST INTRAORAL PHOTO Routine 01/23/2025 2:00 PM PST INTRAORAL PHOTO Routine 01/23/2025 2:00 PM PST ADDITIONAL X-RAY Routine 01/23/2025 2:00 PM PST SINGLE X-RAY Routine 01/23/2025 2:00 PM PST COMPREHENSIVE ORAL EVALUATION - NEW OR ESTABLISHED PATIENT Routine 01/23/2025 2:00 PM PST Encounter for dental examination and cleaning without abnormal findings [facility] CT CAPTURE AND INTERPRETATION WITH FIELD OF VIEW OF BOTH JAWS; WITH OR WITHOUT CRANIUM Routine 01/23/2025 2:00 PM PST BITEWINGS - FOUR RADIOGRAPHIC IMAGES Routine 01/23/2025 2:00 PM PST 18 RUPERTO AMALGAM FILLING Routine 01/23/2025 12:00 AM PST 10 L COMPOSITE FILLING Routine 12:00 AM PST 6 DI COMPOSITE FILLING Routine 12:00 AM PST 9 MIDF COMPOSITE FILLING Routine 025 12:00 AM PST 7 I COMPOSITE FILLING Routine 01/23/2025 12:00 AM PST 8 DIF COMPOSITE FILLING Routine 01/24/20 12:00 AM PST 31 ZIRCONIA CROWN Routine 01/23/2025 12: 00 AM PST 31 ZIRCONIA CROWN Routine 01/23/2025 12: 00 AM PST 28 DO AMALGAM FILLING Routine 01/23/2025 12:00 AM PST 29 MOD AMALGAM FILLING Routine 12:00 AM PST 2 MOD AMALGAM FILLING Routine 01/23/2025 12:00 AM PST 30 MOD AMALGAM FILLING Routine 12:00 AM PST 5 PFM CROWN Routine 01/23/2025 12:00 AM PST 15 MOD AMALGAM FILLING Routine 12:00 AM PST 14 MO AMALGAM FILLING Routine 01/23/2025 12:00 AM PST 13 PFM CROWN Routine 01/23/2025 12:00 AM PST 3 ZIRCONIA CROWN Routine 01/23/2025 12:0 0 AM PST 4 ZIRCONIA CROWN Routine 01/23/2025 12:0 0 AM PST 4 DENTAL IMPLANT Routine 01/23/2025 12:0 0 AM PST 3 DENTAL IMPLANT Routine 01/23/2025 12:0 0 AM PST ORAL SURG CONSULT Routine 01/06/2025 1:3 0 PM PST 12 GUIDED TISSUE REGENERATION, EDENTULOUS AREA - RESORBABLE BARRIER, PER SITE Routine 01/06/2025 1:30 PM PST 12 BONE REPLACEMENT GRAFT FOR RIDGE PRESERVATION - PER SITE - MAXILLARY Routine 01/06/2025 1:30 PM PST 12 EXTRACTION, ERUPTED TOOTH REQUIRING REMOVAL OF BONE AND/OR SECTIONING OF TOOTH Routine 01/06/2025 1:30 PM [address] CAPTURE AND INTERPRETATION WITH FIELD OF VIEW OF BOTH JAWS; WITH OR WITHOUT CRANIUM Routine 11/28/2024 2:00 PM PST BITEWING - SINGLE RADIOGRAPHIC IMAGE Routine 11/28/2024 2:00 PM PST ADDITIONAL X-RAY Routine 11/28/2024 2:00 PM PST LIMITED ORAL EVALUATION - PROBLEM FOCUSED Routine 11/28/2024 2:00 PM PST SINGLE X-RAY Routine 11/28/2024 2:00 PM PST Visit Diagnoses Diagnosis Start Date Dental caries, unspecified 01/23/2025 Encounter for dental examination and cleaning without abnormal findings 01/23/2025 Insurance [employer] PPO
--- OUTSIDE RECORDS SUMMARY | 2025-04-08 11:52 | XMS_ITS | Encounter Summary ---
Author Organization [facility] Address [address] [place] [address] Care Team Providers Care Assembly Machine Set Up Mechanic Name Role Phone Bina Catrachito Primary Care Provider [phone] Encounter Details Date Type Department Care Team [...] Description 05/26/2025 1:00 PM EDT Office Visit [facility] - [place] [address] [phone] Sarah Gonzalez MD [address] [place] [address] documented as of this encounter Procedures Procedure [...] examination documented in this encounter Care Teams Assembly Machine Set Up Mechanic Relationship Specialty Start Date End Date Catrachito Curran DO [address] [place] [phone] PCP - General Internal Medicine 12/30/20 documented as of this encounter
--- OUTSIDE RECORDS SUMMARY | 2025-04-08 11:52 | XMS_ITS | Clinical Summary ---
Author Organization [facility] Address [address] [place] [address] Phone Care Team Providers Care Zipper Setter Lockstitch Name Role Phone BinaCatrachito varghese Primary Care Provider [phone] Allergies Active Allergy Reactions Criticality Noted Date [...] (one) time each day. 9 Active vitamins A,C,X-myrf-jlwkpk (PreserVision AREDS) 4,296 mcg-226 mg-90 mg capsule [...] 2024 COPD (chronic obstructive pu lmonary disease) ([facility] V24, [facility] V28) 03/20/2025 Encounters Date Type Department Care Team Description 03/20/2025 11:30 AM EDT Office Visit [facility] Cardiology - [place] [address] [address] Ginette Lim NP Hypertension, unspecified type (Primary Dx); Mixed hyperlipidemia; Family history of coronary artery disease from Last 3 Months Immunizations Name Administration Dates Next Due [facility] SARS-CoV-2 COVID-19, mRNA, LNP-S, preservative free 03/31/2022,09/27/2021 [facility] SARS-CoV-2 COVID-19, mRNA, LNP-S, preservative free 02/08/2021,12/23/2020 Surgical History Surgery Date Site/Laterality Comments BREAST LUMPECTOMY COLONOSCOPY BUNIONECTOMY HYSTERECTOMY KNEE ARTHROSCOPY Right KNEE ARTHROPLASTY 11/19/2020 - 11/18/2021 Right TRIGGER FINGER RELEASE Medical History Medical History Date Comments Cancer ([facility] V24, [facility] V28) 2011 RT BREAST- MELISSA AND RAD [place] COPD (chronic obstructive pu lmonary disease) ([facility] V24, [facility] V28) DVT (deep venous thrombosis) ([facility] V24, [facility] V28) COUMADIN TX Depression Shortness of breath [...] EDT Office Visit [facility] [place] [address] [facility] [address] [place] [phone] Sarah Gonzalez MD [address] [place] [address] Health Maintenance Due Date Last Done Comments [...] this topic Medical Devices Implanted Type Area Supervisor Marble Device Identifier Shelf Expiration Date Model / Serial / Lot Knee Insrt Cs X3 Sz4 11mm - [id number] Implanted:Qty: 1 on 09/24/2024 by Daniel Kay MD at [facility] Knee Left: Knee [employer] [id number] 05/06/2029 5531-G-41 1 / / [id number] Knee Bsplt Triathlon Ti Sz 4 - [id number] Implanted:Qty: 1 on 09/24/2024 by Daniel Kay MD at [facility] Knee Left: Knee [employer] [id number] 07/02/2029 5536-B-40 0 / / [id number] Knee Fem Bsplt Beaded W/Pa Sz4 L - [id number] Implanted:Qty: 1 on 09/24/2024 by Daniel Kay MD at [facility] Knee Left: Knee [employer] [id number] 07/31/2029 5517-F-40 1 / / [id number] Knee Ptla Asym Tritanium 29x9 - [id number] Implanted:Qty: 1 on 09/24/2024 by Daniel Kay MD at [facility] Knee Left: Knee [employer] [id number] 06/26/2029 5552-L-29 9 / / [id number] Component Femoral Posterior Stabilized Rt Size 4 Beaded W\Pe - [id number] Implanted:Qty: 1 on 01/24/2021 by Daniel Kay MD Right: Knee [employer] [id number] 07/19/2024 5516-F-40 2 / / [id number] Triathlon Tritanium Baseplate Size 5 - [id number] Implanted:Qty: 1 on 01/24/2021 by Daniel Kay MD Right: Knee [employer] [id number] 10/15/2025 5536-B-50 0 / / [id number] Insert Triathlon 5 11mm Posterior Stabilized Bearing X3 - [id number] Implanted:Qty: 1 on 01/24/2021 by Daniel Kay MD Right: Knee [employer] [id number] 11/24/2024 5532-G-51 [id number] Tritanium Asymmetric Metal Backed Patella 29mm - [id number] Implanted:Qty: 1 on 01/24/2021 by Daniel Kay MD Right: Knee [employer] [id number] 12/30/2025 5552-L-29 NHDL1 Procedures Procedure Name Priority [...] currently active code status orders. Care Teams Zipper Setter Lockstitch Relationship Specialty Start Date End Date Catrachito Curran DO [address] [place] [phone] PCP - General Internal Medicine 12/30/20
--- OUTSIDE RECORDS SUMMARY | 2025-04-08 11:52 | XMS_ITS | Clinical Summary ---
Author Organization [facility] Address [address] [place] [address] Care Team Providers Care Fiscal Accountant Name Role Phone Catrachito Curran DO Primary Care Provider [phone] Allergies Active Allergy Reactions Criticality Noted Date Comments Fluoxetine 08/27/2024 Other reaction(s): fatigue Medications Medication Sig Dispensed Refills Start Date End Date Status atorvastatin (LIPITOR) tablet 40 mg Take 1 tablet (40 mg total) by mouth every evening. 0 11/30/2020 Active Lactobacillus-Inulin ([facility]) CAPS Take 200 mg [...] this topic Medical Devices Implanted Type Area Protective Officer Device Identifier Shelf Expiration Date Model / Serial / Lot Component Femoral Posterior Stabilized Rt Size 4 Beaded W\Pe - [id number] - [id number] Implanted:Qty: 1 on 01/24/2021 by Dainel Kay MD at [facility] Right: Knee [employer] [id number] 07/19/2024 5516-F-402 / / [id number] Triathlon Tritanium Baseplate Size 5 - [id number] - [id number] Implanted:Qty: 1 on 01/24/2021 by Daniel Kay MD at [facility] Right: Knee [employer] [id number] 10/15/2025 5536-B-500 / / [id number] Insert Triathlon 5 11mm Posterior Stabilized Bearing X3 - [id number] - [id number] Implanted:Qty: 1 on 01/24/2021 by Daniel Kay MD at [facility] Right: Knee [employer] [id number] 11/24/2024 5532-G-511 / / [id number] Tritanium Asymmetric Metal Backed Patella 29mm - [id number] - [id number] Implanted:Qty: 1 on 01/24/2021 by Daniel Kay MD at [facility] Right: Knee [employer] [id number] 12/30/2025 5552-L-299 / / NHDL1 Advance Directives For more information, please contact: [phone] Latest Code Status on File Code Status [...] way: discussion with patient . Care Teams Fiscal Accountant Relationship Specialty Start Date End Date Catrachito Curran DO [address] [place], [place] [address] [address] PCP - General Internal Medicine 12/30/20
--- OUTSIDE RECORDS SUMMARY | 2025-04-08 11:52 | XMS_ITS | Clinical Summary ---
Author Organization [facility] Address [address] [place] [address] Care Team Providers Care Central Supply Technician Name Role Phone Unavailable Primary Care Provider Unavailabl e Allergies No known active allergies Medications ibuprofen (ADVIL,MOTRIN) 800 mg tablet Take 1 tablet (800 mg total) by mouth every 8 (eight) hours if needed for mild pain. 20 tablet 01/06/2025 Active Active Problems No known active problems Encounters Date Type Department Care Team Description 01/23/2025 2:00 PM PST Office Visit [facility] Dentistry [address] [facility] [address] [place] [phone] Kathy Guerrero DMD Dental caries, unspecified (Primary Dx); Encounter for dental examination and cleaning without abnormal findings from Last 3 Months Social History Tobacco Use Types Packs/Day Years Used Date Smoking Tobacco: Never Smokeless Tobacco: Never Tobacco Cessation:Counseling Given: Not Answered Alcohol Use Standard Drinks/Week Comments Never 0 (1 standard drink = 0.6 oz pur e alcohol) Comments No Sex and Gender Information Value Date Recorded Sex Assigned at Not on file Legal Sex Female 11:58 AM PST Gender Identity Not on file Sexual Orientation Not on file Last Filed Vital Signs [...] 01/06/2025 2:01 PM PST Plan of Treatment Health Maintenance Due Date Last Done Comments Dental X-Ray: Panoramic 1945 Dental Oral Exam 07/27/2025 01/23/2025 Dental Prophylaxis 07/27/2025 01/23/2025 Dental X-Ray: Bitewings 07/27/2025 01/23/2025 Dental CBCT 01/24/2028 01/23/2025, 11/28/2024 Dental X-Ray: Full Mouth 01/26/2028 01/24/2025, 05/2025 Meningococcal B Vaccine Aged Out No l onger eligible based on patient's age to complete this topic Procedures Procedure Name Priority Date/Time Associated Diagnosis [...] PST 8 DIF COMPOSITE FILLING Routine 01/24/20 25 12:00 AM PST 31 ZIRCONIA CROWN Routine [...] IMPLANT Routine 01/23/2025 12:0 0 AM PST from Last 3 Months Insurance [employer] PPO
== END 2025-04-08 10:23 | disposition home or self-care (01) ==
LOC: HO.MAMMO 10:22
PROVIDERS: Visit Provider Internal Medicine
DX: Z12.31 Encounter for screening mammogram for malignant neoplasm of breast (principal)
CPT/HCPCS: 77063; 77067

== ENCOUNTER → 2025-04-08 12:30 | Outpatient (BNV) | payer MEDICARE, SELFPAY | PROVIDERS: Visit Provider Internal Medicine | DX: Z12.31 Encounter for screening mammogram for malignant neoplasm of breast (principal) | CPT/HCPCS: 77063; 77067 ==

== ENCOUNTER 2025-04-20 10:51 | Outpatient (REF) | payer MEDICARE, SELFPAY ==
[2025-04-20 11:02] VITALS: BP 116/64; PULSE 72; RESP 18; TEMP 36.1; O2SAT 98
== END 2025-04-20 10:52 | disposition home or self-care (01) ==
LOC: HO.MS 10:51
PROVIDERS: Visit Provider Ophthalmology
PROC: (CPT 66821; principal; 2025-04-20 14:00)
DX: H26.492 Other secondary cataract, left eye (principal)
CPT/HCPCS: 66821

== ENCOUNTER 2025-05-19 09:27 | Outpatient (REF) | payer MEDICARE, SELFPAY ==
--- OUTSIDE RECORDS SUMMARY | 2024-09-16 14:24 | XMS_ITS | Encounter Summary ---
Author Organization [facility] Address [address] [place] [address] Care Team Providers Care Physical Design Engineer Name Role Phone Bina Catrachito Primary Care Provider [phone] Encounter Details Date Type Department Care Team [...] documented in this encounter Plan of Treatment Upcoming Encounters Date Type Department Care Team (Late st Contact Info) Description 05/26/2025 1:00 PM EDT Office Visit [facility] [place] [address] [facility] [address] [place] [address] Sarah Gonzalez MD [address] [place] [address] documented as of this encounter Procedures Procedure [...] on 09/16/2024 3:00 PM. Workstation Name - [id number] Procedure Note Gigi Santamaria MD - 09/20/2024 [...] MD on 43:00 PM. Workstation Name - [id number] Daniel Kay MD IMG CT PROCEDURES Final Result documented in this encounter Visit Diagnoses Diagnosis Unilateral primary osteoarthritis, left knee Pain in left knee documented in this encounter Care Teams Physical Design Engineer Relationship Specialty Start Date End Date Catrachito Curran DO [address] [place] [phone] PCP - General Internal Medicine 12/30/20 documented as of this encounter
--- NOTE | ~2025-05-19 | US_ITS ---
EXAMINATION: US ABDOMEN COMPLETE CLINICAL INFORMATION: Epigastric pain.. COMPARISON: May 05, 2019. TECHNIQUE: Real-time ultrasound of the abdomen using grayscale technique. FINDINGS: PANCREAS: No peripancreatic fluid collections. ABDOMINAL AORTA: The proximal, mid, and distal segments are normal in caliber. INFERIOR VENA CAVA: Visualized portions are normal. LIVER: Liver measures 16 cm. Normal echotexture. No nodular surface. No solid or cystic lesion detected by the technologist. No intrahepatic biliary ductal dilatation. GALLBLADDER: Fluid-filled. No pericholecystic fluid collection or gallbladder wall thickening. COMMON BILE DUCT: 7 mm.. RIGHT KIDNEY: 10 cm. Normal echotexture. Normal renal cortical thickness. No hydronephrosis. No gross solid or cystic lesion detected. LEFT KIDNEY: 11 cm. Normal echotexture. Normal renal cortical thickness. No hydronephrosis. No gross solid or cystic lesion detected. SPLEEN: 8 cm. FREE FLUID: None. US/US abdomen complete IMPRESSION: No cholelithiasis. No ascites. No hydronephrosis. Electronically signed by: Chun Patel MD 05/19/2025 10:16 AM EDT
--- OUTSIDE RECORDS SUMMARY | 2025-05-19 10:05 | XMS_ITS | Data Portability ---
Author Organization [facility] Address [address] [address] Assessment Encounter Date Assessment Date Assessment LastModified by Organization Details LastModified Time 12/20/2020 12/20/2020 We discussed the options related to her treatment. Mrs. 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 Clearly right total knee arthroplasty would be a reasonable treatment alternative for her. We discussed the issues related to total hip arthroplasty in a lot of detail today including the preoperative process, the operative techniques, less invasive techniques, computer-assisted techniques, the types of implants, and the perioperative risks. In addition, we discussed the typical hospitalization course following surgery and reasonable expectations for recovery, outcome, activity level, and long-term followup. We also discussed issues related to her [...] Star Gibson MD [address], [place], [address], [place] [facility] 12/20/2020 11:44:35 Unlisted procedure breast completed Star Gibson MD [address], [place], [address], [place] [facility] and [facility] 12/20/2020 11:44:52 excision of bunion completed Star Gibson MD [address], [place], [address], [place] [facility] and [facility] 12/20/2020 11:45:07 Knee arthroscopy/surge ry completed Star Gibson MD [address], [place], [address], [place] [facility] and [facility] 12/20/2020 [...] Updated DateTime 12/20/2020 163.83 cm 29.1 kg/m2 43458.89 g Star Gibson MD [address] [facility] [address],[facility] [address], [place], [address], [place] Comp-Assistd and [facility]cn[facility]urg[facility] 12/20/2020 11:38:49 [...] Migraines N Thyroid Problems Y Anemia N Heart Attack ([place]) N Ulcers N Diabetes N Bleeding Disorder N Seizures/Epilepsy N Tuberculosis N AIDS/HIV N Asthma N Peripheral Vascular Disease N Hepatitis N Pulmonary Embolism N Hypertension N Osteoporosis N Gynecological HistoryNo gynecological history recorded. Obstetrics History GPAL:G 0 P 0 0 0 0 Past Encounters Encounter ID Performer Location Encounter Start Date Encounter Closed Date Diagnosis/Indication Diagnosis SNOMED-CT Code Diagnosis ICD10 Code Diagnosis Note [id number] Star Gibson MD [facility] [address] [place] [address] 12/20/2020 08:07:36 12/20/2020 12:46:21 Health Concerns Section Related Observation LastModified by Organization Detai ls LastModified Time None Recorded Concern Status LastModified by Organization Details LastModified Time None Recorded Advance Directives Directive None Recorded Payers Insurance Date Sequence Insurance Name Policy Number Policy Degroot Covered Member ID Degroot Member ID Guarantor Name 12/20/2020 1 [employer] (MEDICARE REPLACEMENT/ ADVANTAGE - PPO) [id number] Miladis Geller [id number] Miladis Geller Notes Date [...] Previous Injections:did not help Star Gibson MD [address] [place] [address],[place] [address], [place], [address], [place] [facility] and [facility] 12/20/2020 11:49:35 OBGyn Episode No OBEpisode recorded.
--- OUTSIDE RECORDS SUMMARY | 2025-05-19 10:05 | XMS_ITS | Clinical Summary ---
Author Organization [facility] Address [address] [place] [address] Care Team Providers Care Grit Blaster Name Role Phone Unavailable Primary Care Provider Unavailabl e Allergies No known active allergies Medications ibuprofen (ADVIL,MOTRIN) 800 mg tablet Take 1 tablet (800 mg total) by mouth every 8 (eight) hours if needed for mild pain. 20 tablet 01/06/2025 Active Active Problems No known active problems Social History Tobacco Use Types Packs/Day Years [...] Dental X-Ray: Full Mouth 01/26/2028 01/24/2025, 05/2025 Procedures Procedure Name Priority Date/Time Associated Diagnosis Comments [facility] CT CAPTURE AND INTERPRETATION WITH FIELD OF VIEW OF BOTH JAWS; WITH OR WITHOUT CRANIUM Routine 01/23/2025 2:00 PM PST PROPHYLAXIS - ADULT Routine 01/23/2025 2 :00 PM PST Encounter for dental examination and cleaning without abnormal findings COMPREHENSIVE ORAL EVALUATION - NEW OR ESTABLISHED PATIENT Routine 01/23/2025 2:00 PM PST Encounter for dental examination and cleaning without abnormal findings from Last 3 Months or Most Recently Relevant to Health Maintenance Insurance [employer] PPO
--- OUTSIDE RECORDS SUMMARY | 2025-05-19 10:05 | XMS_ITS | Clinical Summary ---
Author Organization [facility] Address [address] [place] [address] Care Team Providers Care Estimator Binding Name Role Phone Catrachito Curran DO Primary Care Provider + [phone] Allergies Active Allergy Reactions Criticality Noted Date Comments Fluoxetine 08/27/2024 Other reaction(s): fatigue Medications Medication Sig Dispensed Refills Start Date End Date Status atorvastatin (LIPITOR) tablet 40 mg Take 1 tablet (40 mg total) by mouth every evening. 0 11/30/2020 Active Lactobacillus-Inulin ([facility]) CAPS Take 200 [...] 88 09/09/2024 2:40 PM EDT Temperature 36.7 C (98.1 F) 09/09/2024 2:40 PM EDT Respiratory Rate 18 09/09/2024 2:40 PM EDT [...] 09/27/2021, 02/08/2021, Additional history exists Influenza Vaccine (Season Ended) 2025 09/27/2021, 09/27/2021 Hepatitis B Vaccines Aged Out No long er eligible based on patient's age to complete this topic RSV Ped < 20 months Aged Out No longe r eligible based on patient's age to complete this topic Medical Devices Implanted Type Area Blueprint Engineer Device Identifier Shelf Expiration Date Model / Serial / Lot Component Femoral Posterior Stabilized Rt Size 4 Beaded W\Pe - [id number] - [id number] Implanted:Qty: 1 on 01/24/2021 by Daniel Kay MD at [facility] Right: Knee [employer] [id number] 07/19/2024 5516-F-402 / / [id number] Triathlon Tritanium Baseplate Size 5 - [id number] - [id number] Implanted:Qty: 1 on 01/24/2021 by Daniel Kay MD at [facility] Right: Knee [employer] [id number] 10/15/2025 5536-B-500 / / [id number] Insert Triathlon 5 11mm Posterior Stabilized Bearing X3 - [id number] - [id number] Implanted:Qty: 1 on 01/24/2021 by Daniel Kay MD at [facility] Right: Knee [employer] [id number] 11/24/2024 5532-G-511 / / [id number] Tritanium Asymmetric Metal Backed Patella 29mm - [id number] - [id number] Implanted:Qty: 1 on 01/24/2021 by Daniel Kay MD at [facility] Right: Knee [employer] [id number] 12/30/2025 5552-L-299 / / [id number] Advance Directives For more information, please contact: [phone] Latest Code Status on File Code Status [...] way: discussion with patient . Care Teams Estimator Binding Relationship Specialty Start Date End Date Catrachito Curran DO [address] [place] [phone] PCP - General Internal Medicine 12/30/20
== END 2025-05-19 09:28 | disposition home or self-care (01) ==
LOC: HO.HMGCX 09:27
PROVIDERS: PCP Physician Assistant Medical; Visit Provider Physician Assistant Medical
DX: R10.13 Epigastric pain (principal); K21.9 Gastro-esophageal reflux disease without esophagitis
CPT/HCPCS: 76700

== ENCOUNTER → 2025-05-19 09:28 | Outpatient (BNV) | payer MEDICARE, SELFPAY | PROVIDERS: PCP Physician Assistant Medical; Visit Provider Radiology Diagnostic Radiology | DX: R10.13 Epigastric pain (principal) | CPT/HCPCS: 76700 ==

== ENCOUNTER 2025-05-20 10:57 | Outpatient (REF) | payer MEDICARE, SELFPAY ==
--- OUTSIDE RECORDS SUMMARY | 2024-09-16 14:24 | XMS_ITS | Encounter Summary ---
Author Organization [facility] Address [address] [place] [address] Care Team Providers Care Solar Panel Technician Name Role Phone Bina Catrachito Primary Care Provider [phone] Encounter Details Date Type Department Care Team [...] EDT Office Visit [facility] - [place] [address] [facility] [address] [place] [address] Sarah Gonzalez MD [address] [place] [address] documented as of this encounter Procedures Procedure [...] on 09/16/2024 3:00 PM. Workstation Name - [id number] Procedure Note Gigi Santamaria MD - 09/20/2024 [...] MD on 43:00 PM. Workstation Name - [id number] Daniel Kay MD IMG CT PROCEDURES Final Result documented in this encounter Visit Diagnoses Diagnosis Unilateral primary osteoarthritis, left knee Pain in left knee documented in this encounter Care Teams Solar Panel Technician Relationship Specialty Start Date End Date Catrachito Curran DO [address] [place] [phone] PCP - General Internal Medicine 12/30/20 documented as of this encounter
--- NOTE | ~2025-05-20 | MM_ITS ---
EXAMINATION: DXA BONE DENSITY AXIAL HISTORY: M81.0 - Age-related osteoporosis without current pathological fracture TECHNIQUE: [employer] Dual energy absorptiometry (DEXA) of the lumbar spine, total left hip, and femoral neck was performed. COMPARISON: Comparison is made with the prior examination dated 09/26/2013. FINDINGS: The bone mineral density of the lumbar spine is 1.157 g/cm2, corresponding to a T-score of -0.2, and a Z-score of 1.2. This is indicative of normal bone mineral density. This represents a BMD change of 2.2% compared to the prior exam. This is not statistically significant. The bone mineral density of the left total hip is 0.802 g/cm2, corresponding to a T-score of -1.6, and a Z-score of 0.1. This is indicative of osteopenia. This represents a BMD change of -13.6% compared to the prior exam. This is statistically significant. The bone mineral density of the left femoral neck is 0.858 g/cm2, corresponding to a T-score of -1.3, and a Z-score of 0.6. This is indicative of osteopenia. This represents a BMD change of -8.5% compared to the prior exam. FRACTURE RISK: The FRAX index suggests a ten year probability of major osteoporotic fracture of 12.4%, and of hip fracture 2.8%. MM/XR DEXA axial skeleton IMPRESSION: Based on bone mineral density, and according to World Health Organization (WHO) criteria, the diagnosis is consistent with osteopenia. Statistically, 68% of repeat scans fall within 1 SD (+/- 0.010 g/cm2 for AP spine L1-L4) and 1 SD (+/- 0.012 g/cm2 for femur total) FRAX is a trademark of the [employer] [facility], a World Health Organization (WHO) Collaborating Center. Electronically signed by: Catrachito Jacobo MD 05/21/2025 06:59 AM EDT
--- OUTSIDE RECORDS SUMMARY | 2025-05-20 11:42 | XMS_ITS | Clinical Summary ---
Author Organization [facility] Health Address [address] [place] [address] Care Team Providers Care Novelty Printing Machine Operator Name Role Phone Unavailable Primary Care Provider [...] Relevant to Health Maintenance [place] [address]
--- OUTSIDE RECORDS SUMMARY | 2025-05-20 11:42 | XMS_ITS | Clinical Summary ---
Author Organization [facility] Address [address] [place] [address] Care Team Providers Care Highway Traffic Control Technician Name Role Phone Catrachito Curran DO Primary Care Provider + [phone] Allergies Active Allergy Reactions Criticality Noted Date Comments Fluoxetine 08/27/2024 Other reaction(s): fatigue Medications Medication Sig Dispensed Refills Start Date End Date Status atorvastatin (LIPITOR) tablet 40 mg Take 1 tablet (40 mg total) by mouth every evening. 0 11/30/2020 Active Lactobacillus-Inulin ([facility]) CAPS Take 200 mg by [...] this topic Medical Devices Implanted Type Area Director Process Improvement Device Identifier Shelf Expiration Date Model / Serial / Lot Component Femoral Posterior Stabilized Rt Size 4 Beaded W\Pe - [id number] - [id number] Implanted:Qty: 1 on 01/24/2021 by Daniel Kay MD at [facility] Right: Knee [employer] [id number] 07/19/2024 5516-F-402 / / [id number] Triathlon Tritanium Baseplate Size 5 - [id number] - [id number] Implanted:Qty: 1 on 01/24/2021 by Daniel Kay MD at [facility] and [facility] Right: Knee [employer] [id number] 10/15/2025 5536-B-500 / / [id number] Insert Triathlon 5 11mm Posterior Stabilized Bearing X3 - [id number] - [id number] Implanted:Qty: 1 on 01/24/2021 by Daniel Kay MD at [facility] Right: Knee [employer] [id number] 11/24/2024 5532-G-511 / / [id number] Tritanium Asymmetric Metal Backed Patella 29mm - [id number] - [id number] Implanted:Qty: 1 on 01/24/2021 by Daniel Kay MD at [facility] Right: Knee [employer] [id number] 12/30/2025 5552-L-299 / / NHDL1 Advance Directives For more information, please contact: [phone] Latest Code Status on File Code Status [...] way: discussion with patient . Care Teams Highway Traffic Control Technician Relationship Specialty Start Date End Date Catrachito Curran DO [address] [place] [phone] PCP - General Internal Medicine 12/30/20
--- OUTSIDE RECORDS SUMMARY | 2025-05-20 11:42 | XMS_ITS ---
Author Name [facility] Organization Unknown Results Test Name/Text Value Interpretation Date Range Source Glucose Bld-mCnc 163.0 mg/dL Normal 09/25/2024 70 - 199 [facility] History of Medication [...] Take 1 capsule by mouth daily. active Allergies Allergen Reaction Severity Comment Documented Date Source Statu s FLUOXETINE Other reaction( s): fatigue 08/27/2024 [facility] active Problems Problem Status Onset Date Problem Type Date of Resolution Source Mixed hyperlipidemia active 2025-03-[address] [facility] COPD (chronic obstructive pulmonary disease) (CMS/HCC V24, CMS/HCC V28) active 2025-03-[address] [facility] Hypertension active [...] SARS-CoV-2 COVID-19, mRNA, LNP-S, preservative free 03/31/2022 [facility] [id number] completed Roomisha SARS-CoV-2 COVID-19, mRNA, LNP-S, preservative free 09/27/2021 [facility] 034F completed Genterpret SARS-CoV-2 COVID-19, mRNA, LNP-S, preservative free 02/08/2021 [facility] [id number] completed Pfizer SARS-CoV-2 COVID-19, mRNA, LNP-S, preservative free 12/23/2020 [facility] [id number] completed Encounters Encounter Type Encounter Reason Primary Diagnosis Location Date Ambulatory Follow-up Essential (prima ry) hypertension [facility] 03/20/2025 Ambulatory Unilateral primary osteoarthritis, left knee Unilateral primary osteoarthritis, left knee [facility] 09/24/[address] [facility] 09/09/[address] [facility] 08/27/2024 [facility] 08/27/2024 Care Team Organization Name Specialty Phone Email Start Date End [facility] te [facility] 09/26/2024 [facility] 09/24/2024 [facility]19 [facility] [place]20[place] [facility]
--- OUTSIDE RECORDS SUMMARY | 2025-05-20 11:42 | XMS_ITS | Data Portability ---
Author Organization [facility], OFFICE Address [address] [address] Assessment Encounter Date Assessment Date Assessment LastModified [...] Star Gibson MD [address], [place], [address], [place] Comp-Assistd and Rcnstrctive Surgry 12/20/2020 11:44:35 Unlisted procedure breast completed Star Gibson MD [address], [place], [address], [place] Comp-Assistd and Rcnstrctive Surgry 12/20/2020 11:44:52 excision of bunion completed Star Gibson MD [address], [place], [address], [place] Comp-Assistd and Rcnstrctive Surgry 12/20/2020 11:45:07 Knee arthroscopy/surge ry completed Star Gibson MD [address], [place], [address], [place] Comp-Assistd and Rcnstrctive Surgry 12/20/2020 [...] Updated DateTime 12/20/2020 163.83 cm 29.1 kg/m2 10573.89 g Star Gibson MD 125 [facility] [place] [address], [place], [address], [place] Comp-Assistd and Rcnstrctive Surgry 12/20/2020 11:38:49 Social History None recorded. Functional Status None recorded. Mental Status None recorded. Family History Relationship Description Onset Age of this Age Resolved Age Notes LastModified by Organization Details LastModified Time Father Coronary arterioscler osis sbm Not available 2020 11:46:32 Mother Alzheimer's disease sbm Not available 2020 11:47:06 Medical History Condition Response Coronary Artery Disease N Heart Problems N Gout N Anxiety/Depression N Blood Transfusion N Hernia N Migraines N Thyroid Problems Y COPD Y Pacemaker N Anemia N Heart Attack ([place]) N Ulcers N Diabetes N Bleeding Disorder [...] SNOMED-CT Code Diagnosis ICD10 Code Diagnosis Note [id number] Star Gibson MD [facility] [address] [place] [address] 12/20/2020 08:07:36 12/20/2020 12:46:21 Health Concerns Section Related Observation LastModified by Organization Detai ls LastModified Time None Recorded Concern Status LastModified by Organization Details LastModified Time None Recorded Advance Directives Directive None Recorded Payers Insurance Date Sequence Insurance Name Policy Number Policy Degroot Covered Member ID Degroot Member ID Guarantor Name 12/20/2020 1 [employer] (MEDICARE REPLACEMENT/ ADVANTAGE - PPO) [id number] Miladis Geller MEBVBWCC Mialdis Geller Notes Date Note Type Note Provider [...] Previous Injections:did not help Star Gibson MD [address] [place] [address],[place] [address], [place], [address], [place] Comp-Assistd and Rcnstrctive Surgry 12/20/2020 11:49:35 OBGyn Episode No OBEpisode recorded.
== END 2025-05-20 10:58 | disposition home or self-care (01) ==
LOC: HO.MAMMO 10:57
PROVIDERS: PCP Physician Assistant Medical; Visit Provider Physician Assistant Medical
DX: M81.0 Age-related osteoporosis without current pathological fracture (principal)
CPT/HCPCS: 77080

== ENCOUNTER → 2025-05-20 11:00 | Outpatient (BNV) | payer MEDICARE, SELFPAY | PROVIDERS: PCP Physician Assistant Medical; Visit Provider Radiology Diagnostic Radiology | DX: E28.39 Other primary ovarian failure (principal) | CPT/HCPCS: 77080 ==

== ENCOUNTER 2025-05-28 11:00 | Outpatient (AMB) | payer MEDICARE, SELFPAY ==
--- OUTSIDE RECORDS SUMMARY | 2024-09-16 14:24 | XMS_ITS | Encounter Summary ---
Author Organization [facility] Address [address] [place] [address] Care Team Providers Care Machinist Instructor Name Role Phone Bina Catrachito Primary Care Provider [phone] Encounter Details Date Type Department Care Team [...] on 09/16/2024 3:00 PM. Workstation Name - [id number] Procedure Note Gigi Santamaria MD - 09/20/2024 [...] MD on 43:00 PM. Workstation Name - [id number] Daniel Kay MD IMG CT PROCEDURES Final Result documented in this encounter Visit Diagnoses Diagnosis Unilateral primary osteoarthritis, left knee Pain in left knee documented in this encounter Care Teams Machinist Instructor Relationship Specialty Start Date End Date Catrachito Curran DO [address] [place] [phone] PCP - General Internal Medicine 12/30/20 documented as of this encounter
--- NOTE | 2025-05-28 11:18 | MHC.OFFVIS ---
Intake Visit Reasons: urinary incontinence Intake Note: New patient presents today for initial visit for urinary incontinence Urology Medication:None Blood Thinner:None Antibiotic Allergies:None PVR:22ml Allergies No Known Allergies (No Known Allergies*) Allergy (Verified 05/28/25 11:19) Medication List - Last Reconciled 05/28/25 by Richard Jauregui MD alendronate (Fosamax) 70 mg PO QWEEK 3 months atorvastatin 20 mg PO QPM cholecalciferol (vitamin D3) 50 mcg PO DAILY levothyroxine 75 mcg PO QAM 90 days multivitamin (Daily Multi-Vitamin tablet) pt uses [employer] vitamins 3 PO daily; omeprazole 40 mg PO DAILY trazodone 50 mg PO BEDTIME venlafaxine ER 150 mg (2 x 75 mg) PO DAILY 90 days HPI Comments Details: 05/28/25 History of Present Illness - The patient is an 80-year-old female presenting with urinary incontinence. - The urinary incontinence has been ongoing for a few years and has worsened over time. - The patient reports feeling pressure in the bladder leading to leakage. - the patient reports leakage with coughing. - She has been using pads to manage the leakage. - The patient underwent a hysterectomy at age 35, with removal of ovaries, - She has three children, all delivered vaginally. - The patient was prescribed Fosamax for bone health. She states she has not yet started the medication - She denies recent history of UTIs Results - Urinalysis: Blood negative, trace leukocytes, no signs of infection - 05/19/25--abdominal ultrasound: Kidneys visualized and normal Plan - Plan to perform urodynamic testing to evaluate bladder function and muscle strength. - Schedule an ultrasound of the bladder to assess structure and function. [facility] Medical History Osteopenia Obesity (BMI 30-39.9) Asthma History of breast cancer Establishing care with new doctor, encounter for History of smoking Shortness of breath Urinary incontinence Epigastric abdominal pain GERD (gastroesophageal reflux disease) Scoliosis deformity of spine Diaphragm, eventration Dyspnea on exertion History of right breast cancer Arthritis Hypothyroid Depression COPD (chronic obstructive pulmonary disease) Elevated cholesterol Surgical History Hx of arthroscopy of knee History of bunionectomy Hx of hysterectomy Hx of colonoscopy History of lumpectomy of right breast Family History Father Heart attack Mother AD (Alzheimer's disease) Sister Heart attack Social History Housing: House Do you presently have visiting nurse or other home services: No Alcohol intake: current Alcohol intake frequency: does not drink Patient Tobacco Use Status: Former Tobacco user Years Smoked: 31 service: No Current occupational status: retired Cognitive needs: Yes (uses cane when needed) Hearing needs: No Vision needs: Yes (rx glasses) Review of Systems Const All systems reviewed & are unremarkable except as noted in HPI and below Reports no additional complaints Eyes Reports no additional complaints ENT Reports no additional complaints Card Reports no additional complaints Resp Reports no additional complaints GI Reports no additional complaints Reports as per HPI Musc Reports no additional complaints Skin/Breast Reports system reviewed and no additional complaints, except as documented Neuro Reports no additional complaints Psych Reports no additional complaints Endo Reports no additional complaints Davey/Lymph Reports no additional complaints Aller/Immun Reports no additional complaints Physical Exam Const General: cooperative, healthy appearing and no acute distress Orientation/consciousness: patient oriented x3 HEENT Head: Yes normal to inspection, Yes normocephalic and Yes atraumatic Eyes Conjunctivae: conjunctivae normal Neck Neck: Yes normal visual inspection and Yes trachea midline Chest Chest palpation & inspection: normal inspection of the chest Resp Effort & Inspection: normal respiratory effort GI Inspection: Yes normal to inspection Neuro General: patient oriented x3 Psych Appearance: grossly normal Results Reviewed Results Reviewed: Date of Service: 05/19/25 Procedure(s): US abdomen complete Accession Number(s): [id number] cc: Ashley Lloyd PA-C~ EXAMINATION: US ABDOMEN COMPLETE CLINICAL INFORMATION: Epigastric pain.. COMPARISON: May 05, 2019. TECHNIQUE: Real-time ultrasound of the abdomen using grayscale technique. FINDINGS: PANCREAS: No peripancreatic fluid collections. ABDOMINAL AORTA: The proximal, mid, and distal segments are normal in caliber. INFERIOR VENA CAVA: Visualized portions are normal. LIVER: Liver measures 16 cm. Normal echotexture. No nodular surface. No solid or cystic lesion detected by the technologist. No intrahepatic biliary ductal dilatation. GALLBLADDER: Fluid-filled. No pericholecystic fluid collection or gallbladder wall thickening. COMMON BILE DUCT: 7 mm.. RIGHT KIDNEY: 10 cm. Normal echotexture. Normal renal cortical thickness. No hydronephrosis. No gross solid or cystic lesion detected. LEFT KIDNEY: 11 cm. Normal echotexture. Normal renal cortical thickness. No hydronephrosis. No gross solid or cystic lesion detected. SPLEEN: 8 cm. FREE FLUID: None. US/US abdomen complete IMPRESSION: No cholelithiasis. No ascites. No hydronephrosis. Assessment & Plan Assessment & Plan (1) Urinary incontinence: Code(s): R32 - Unspecified urinary incontinence Category: Medical (2) KATIUSKA (stress urinary incontinence, female): Code(s): N39.3 - Stress incontinence (female) (male) Category: Medical Plan Plan - Plan to perform urodynamic testing to evaluate bladder function and muscle strength. - Schedule an ultrasound of the bladder to assess structure and function. - Discuss potential therapies based on test results, including addressing muscle weakness or bladder spasms. - Follow-up visit to review test results and discuss management options. Orders: Orders US bladder Today R32 - Unspecified urinary incontinence Patient Instructions: The patient had an opportunity to ask questions regarding treatment plan. The patient expressed understanding and agreement with the above treatment plan. The patient is aware they should contact our office by phone for worsening of their current condition or the appearance of new symptoms. Compliance is encouraged with any medications and followup testing that is ordered. It is a privilege to be allowed the opportunity to participate in the urologic care of your patient. If you have any questions or concerns regarding treatment for the above conditions please do not hesitate to contact me. The office telephone contact is [phone]. This note is constructed in part using voice recognition software. While every effort has been made to ensure accuracy outer diameter grinder tool errors may have been included. Yours sincerely, Richard Jauregui MD Scribe Plan - Not visible on output: Patient was informed and verbally consented to the use of an ambient scribe for clinic note documentation during this visit. Coding Level of Care Code New Pt Level 4 (19720) Diagnoses Urinary incontinence R32 KATIUSKA (stress urinary incontinence, female) N39.3
--- OUTSIDE RECORDS SUMMARY | 2025-05-28 11:43 | XMS_ITS | Clinical Summary ---
Author Organization [facility] Address [address] [place] [address] Care Team Providers Care Hotel Or Motel Cleaning Supervisor Name Role Phone Catrachito Curran DO Primary Care Provider + [phone] Allergies Active Allergy Reactions Criticality Noted Date Comments Fluoxetine 08/27/2024 Other reaction(s): fatigue Medications Medication Sig Dispensed Refills Start Date End Date Status atorvastatin (LIPITOR) tablet 40 mg Take 1 tablet (40 mg total) by mouth every evening. 0 11/30/2020 Active Lactobacillus-Inulin ([facility]) CAPS Take 200 mg [...] 02/08/2021, Additional history exists Influenza Vaccine (#1) 2025 09/27/2021, 2020 Hepatitis B Vaccines Aged Out No long er eligible based on patient's age to complete this topic RSV Ped < 20 months Aged Out No longe r eligible based on patient's age to complete this topic Medical Devices Implanted Type Area Assembler Flexible Leads Device Identifier Shelf Expiration Date Model / Serial / Lot Component Femoral Posterior Stabilized Rt Size 4 Beaded W\Pe - [id number] - [id number] Implanted:Qty: 1 on 01/24/2021 by Daniel Kay MD at [facility] Right: Knee [employer] [id number] 07/19/2024 5516-F-402 / / [id number] Triathlon Tritanium Baseplate Size 5 - [id number] - [id number] Implanted:Qty: 1 on 01/24/2021 by Daniel Kay MD at [facility] Right: Knee [employer] [id number] 10/15/2025 5536-B-500 / / [id number] Insert Triathlon 5 11mm Posterior Stabilized Bearing X3 - [id number] - [id number] Implanted:Qty: 1 on 01/24/2021 by Daniel Kay MD at [facility] Right: Knee [employer] [id number] 11/24/2024 5532-G-511 / / [id number] Tritanium Asymmetric Metal Backed Patella 29mm - [id number] - [id number] Implanted:Qty: 1 on 01/24/2021 by Daniel Kay MD at [facility] Right: Knee [employer] [id number] 12/30/2025 5552-L-299 / / [id number] Advance Directives For more information, please contact: [phone] Latest Code Status on File Code Status [...] way: discussion with patient . Care Teams Hotel Or Motel Cleaning Supervisor Relationship Specialty Start Date End Date Catrachito Curran DO [address] [place] [phone] PCP - General Internal Medicine 12/30/20
--- OUTSIDE RECORDS SUMMARY | 2025-05-28 11:43 | XMS_ITS | Data Portability ---
Author Organization [facility] OFF[facility] Address [address] [address] Assessment Encounter Date Assessment Date Assessment LastModified [...] Star Gibson MD [address], [place], [address], [place] - Comp-Assistd and [facility]ctive Surgry 12/20/2020 11:44:35 Unlisted procedure breast completed Star Gibson MD [address], [place], [address], [place] Comp-Assistd and [facility] 12/20/2020 11:44:52 excision of bunion completed Star Gibson MD [address], [place], [address], [place] Comp-Assistd and [facility]ry 12/20/2020 11:45:07 Knee arthroscopy/surge ry completed Star Gibson MD [address], [place], [address], [place] - Comp-Assistd and [facility]urg[facility] 12/20/2020 [...] Updated DateTime 12/20/2020 163.83 cm 29.1 kg/m2 78935.89 g Star Gibson MD 125 [facility] Margaret,[facility] [address], [place], [address], [place] - Comp-Assistd and [facility]cnstrctive Surgry 12/20/2020 [...] Y Anemia N Ulcers N Heart Attack ([place]) N Diabetes N Bleeding Disorder N Seizures/Epilepsy N Tuberculosis N AIDS/HIV N Asthma N Peripheral Vascular Disease N Hepatitis N Pulmonary Embolism N Hypertension N Osteoporosis N Gynecological HistoryNo gynecological history recorded. Obstetrics History GPAL:G 0 P 0 0 0 0 Past Encounters Encounter ID Performer Location Encounter Start Date Encounter Closed Date Diagnosis/Indication Diagnosis SNOMED-CT Code Diagnosis ICD10 Code Diagnosis Note [id number] Star Gibson MD [facility] [address] [place] [address] 12/20/2020 08:07:36 12/20/2020 12:46:21 Health Concerns Section Related Observation LastModified by Organization Detai ls LastModified Time None Recorded Concern Status LastModified by Organization Details LastModified Time None Recorded Advance Directives Directive None Recorded Payers Insurance Date Sequence Insurance Name Policy Number Policy Degroot Covered Member ID Degroot Member ID Guarantor Name 12/20/2020 1 [employer] (MEDICARE REPLACEMENT/ ADVANTAGE - PPO) [id number] Miladis Geller MEBVBWCC Miladis Geller Notes Date [...] Previous Injections:did not help Star Gibson MD [address] [place] [address],[place] [address], [place], [address], [place] - Comp-Assistd and [facility]cnstrctive Surgry 12/20/2020 11:49:35 OBGyn Episode No OBEpisode recorded.
--- OUTSIDE RECORDS SUMMARY | 2025-05-28 11:43 | XMS_ITS | Clinical Summary ---
Author Organization [facility] Health Address [address] [place] [address] Care Team Providers Care Envelope Sealing Machine Operator Name Role Phone Unavailable Primary [...]
== END 2025-05-28 12:33 | disposition home or self-care (01) ==
LOC: HO.HUSH 11:01
PROVIDERS: PCP Internal Medicine; Visit Provider Urology
DX: N39.3 Stress incontinence (female) (male) (principal); Z13.9 Encounter for screening, unspecified
CPT/HCPCS: 99204

== ENCOUNTER → 2025-05-28 11:00 | Outpatient (BNVA) | payer MEDICARE, SELFPAY | PROVIDERS: PCP Internal Medicine; Visit Provider Urology | DX: N39.3 Stress incontinence (female) (male) (principal) | CPT/HCPCS: 51798; 81003; 99202 ==

== ENCOUNTER 2025-06-08 08:38 | Outpatient (REF) | payer MEDICARE, SELFPAY ==
--- OUTSIDE RECORDS SUMMARY | 2024-09-16 14:24 | XMS_ITS | Encounter Summary ---
Author Organization [facility] Address [address] [place] [address] Care Team Providers Care Diathermy Equipment Repairer Name Role Phone Bina Catrachito Primary Care Provider [phone] Encounter Details Date Type Department Care Team [...] on 09/16/2024 3:00 PM. Workstation Name - [id number] Procedure Note Gigi Santamaria MD - 09/20/2024 [...] MD on 43:00 PM. Workstation Name - [id number] Daniel Kay MD IMG CT PROCEDURES Final Result documented in this encounter Visit Diagnoses Diagnosis Unilateral primary osteoarthritis, left knee Pain in left knee documented in this encounter Care Teams Diathermy Equipment Repairer Relationship Specialty Start Date End Date Catrachito Curran DO [address] [place] [phone] PCP - General Internal Medicine 12/30/20 documented as of this encounter
--- OUTSIDE RECORDS SUMMARY | 2025-06-08 08:46 | XMS_ITS | Encounter Summary ---
Author Organization [facility] Address [address] [place] [phone] Phone Care Team Providers Care Amusement Park Entertainer Name Role Phone Catrachito Curran DO Primary Care Provider [phone] Encounter Details Date Type Department Care Team (Late st Contact Info) Description 10/10/2019 Procedure Pass OR Admitting Dept - Virtual Department [address] [place] [id number] Social History Tobacco Use Types Packs/Day Years Used Date Smoking Tobacco: Former Cigarettes Q uit: 09/04/1994 Smokeless Tobacco: Never Alcohol Use Standard Drinks/Week Comments Never 0 (1 standard drink = 0.6 oz pur e alcohol) Comments No Sex and Gender Information Value Date Recorded Sex Assigned at Not on file Legal Sex Female 1:19 PM EDT Gender Identity Not on file Sexual Orientation Not on file documented as of this encounter Plan of Treatment Not on file documented as of this encounter Visit Diagnoses Not on filedocumented in this encounter Care Teams Amusement Park Entertainer Relationship Specialty Start Date End Date Catrachito Curran DO [address] [place] [address] PCP - General Internal Medicine 07/07/19 documented as of this encounter Additional Source Comments The information contained in this document represents components of the legal health record. It is not the complete legal health record.[facility]
--- OUTSIDE RECORDS SUMMARY | 2025-06-08 08:46 | XMS_ITS | Data Portability ---
Author Organization [facility] [address] Address [address] [place] [address] Care Team Providers Care Lathe Setup Operator Name Role Phone TAD ALEXANDER Primary Care Provider Assessment No assessment recorded. Plan of Treatment Reminders Order Date Submit Date Provider Last Modified By Organization Details Last Modified Time Details Appointments None recorded. Lab microorgani sm identificat ion, unspecified specimen 2022 023 [place] [facility], [address] [place] [address], [place], [address], 16:06:56 Referral None recorded. Procedures None recorded. Surgeries None recorded. Imaging None recorded. Medication Orders doxycycline hyclate 100 mg capsule [email or web address] [facility] #[id number], [address] [place], [address], 16:19:45 Patient TargetsNo targets recorded. Patient Instructions Encounter Date Encounter Id Patient Instructions Last Modified By Organization Details Last Modified Time 03/18/2023 [id number] Ticks are small spider-like animals. They bite [...] the ice and your skin. Try an gzbk-tqn-rcfwdbv medicine to relieve itching, redness, swelling, and [...] as possible. Slowly pull the tick straight out do not twist or yank until its mouth releases from your skin. If [...] your doctor if you can take an atpp-sbl-zvsawnd medicine. Keep your bandage clean and dry. [...] wound closes. Not available 03/18/2023 16:15:19 03/22/2023 [id number] A skin abscess i s a bacterial [...] your doctor if you can take an djlm-qym-hurbjnu medicine. Keep your bandage clean and dry. [...] aerobic bacterial culture FINAL REPORT Not Available [facility] ([facility]) [address] [place], [address], 03/20/2023 16:06:56 03/18/2003/20/2023 AEROB IC BACTE RIAL CULTU RE result 1 MIXED SKIN KRISTEN Not Available [facility] ([facility]) [address] [place], [address], 03/20/2023 16:06:56 Result Notes None recorded. Problems Name Problem SNOMED Code Status Onset Date Resolution Date Notes Provider Name and Address Organization Details Recorded Time Hypothyroidism 37684097 Active 2022 [facility] 14:46:32 Hypercholestero lemia 76398166 Active 2022 [facility] 14:46:38 Depressive disorder 45580197 Active 2022 Fanta mendes, [place] - [facility] 14:46:43 Problem Notes None recorded. Procedures Surgical History Date Name Laterality Status Provider Name and Address Organization Details Recorded Time 3 Wound Dressing completed Cassius Schwartz NP [address], [place], [address], [place] - [facility] 03/22/2023 08:47:17 3 I&D, with Packing completed Cassius Schwartz NP [address], [place], [address], [place] - [facility] 03/18/2023 16:13:53 Knee [...] Respiratory rate Body temperature Heart rate Systolic And Diastolic Provider Name and Address Organization Details Last Updated DateTime 3 162.56 cm 29.2 kg/m2 06678.7 g 100 % 100 % 20 /min 97.9 [degF] 52 /min 119/67 mm[Hg] Fanta [place] [employer] [place] - [facility] 3 14:49:35 Date Recorded Body height Body mass index (BMI) Body weight Respiratory rate Heart rate Oxygen saturation Oxygen saturation in Arterial blood by Pulse oximetry Body temperature Systolic And Diastolic Provider Name and Address Organization Details Last Updated DateTime 3 162.56 cm 29.2 kg/m2 38766.7 g 20 /min 74 /min 96 % 96 % 97.8 [degF] 137/72 mm[Hg] Fanta [place] PA - [facility] 3 08:19:42 Social History Question Answer Notes LastModified by [employer] Details LastModified Time Tobacco Smoking Status Never Smoker Fanta mendes PA - [facility] 03/18/2023 14:46:59 Have You Had Direct Contact, Or Contact During Intimacy, With Monkeypox Rash, Scabs, Or Body Fluids From A Person With Monkeypox? No Information not available 03/18/2023 Have You Recently Traveled Abroad? No Information not available 03/18/2023 Sex: Unknown Functional Status Question Answer Note LastModified by [employer] Details LastModified Time Do you use any [...] or 50 mcg/0.25mL dose 03/31/2022 completed Fanta [place] null, [place] - [facility] 03/18/2023 14:45:28 COVID-19, mRNA, LNP-S, PF, 100 mcg/0.5mL dose or 50 mcg/0.25mL dose 09/27/2021 completed Fanta [place] null, [place] - [facility] 03/18/2023 14:45:28 [...] SNOMED-CT Code Diagnosis ICD10 Code Diagnosis Note [id number] [facility] [address] [address] 08/18/2019 10:09:44 08/18/2019 11:00:54 [id number] Cassius Schwartz NP [address] [place] [address] 03/18/2023 14:13:36 03/18/2023 16:18:52 Abscess of skin of left shoulder 1308917561 3256449 L02.414 Tick bite 10663035 W57.X XXA Puncture w ound of abdomen 891573559 S31.134A [id number] Cassius Schwartz NP [address] [place] [address] 03/22/2023 08:06:13 03/22/2023 08:50:44 Abscess of shoulder 33555242 L02.419 Continue antibiotic s as prescribed . Health Concerns Section Related Observation LastModified by Organization Detai ls LastModified Time None Recorded Concern Status LastModified by Organization Details LastModified Time None Recorded Advance Directives Directive None Recorded Payers Insurance Date Sequence Insurance Name Policy Number Policy Degroot Covered Member ID Degroot Member ID Guarantor Name 03/22/2023 2 [place]: [employer] Miladis E Duyen [id number] Miladis [place] 03/18/2023 2 [facility] - PREFERRED (MEDICARE SUPPLEMENT) [id number] Miladis Duyen [id number] Miladis Duyen 03/18/2023 2 [employer] (MEDICARE REPLACEMENT/ ADVANTAGE - PPO) [id number] Miladis E [place] [id number] Miladis [place] 03/22/2023 [employer] - SPECIALITY CLAIMS (MEDICARE DME REGION A) Miladis E [place] [id number] Miladis Duyen 03/22/2023 1 [employer] (MEDICARE REPLACEMENT/ ADVANTAGE - PPO) [id number] Miladis E [place] [id number] Miladis [place] Notes Date Note Type Note Provider Name [...] tender to palpation. Cassius Schwartz NP [address], [place], [address], [place] - [facility] 03/18/2023 16:20:17 03/22/2023 text/html AbscessReported bypatient.Location:[facility]; [facility] Onset/Timing:sudden; follow up visit after incision and drainage of left shoulder blade abscess. Duration:date of onset 03/08/2023 Quality:no warmth;painful;tender ness;swelling;redness ;drainage Severity:improving Context:obese;celluli tis Associated Symptoms:no fever; no red streaking; no chills; no malaise; no headache; no enlarged lymph nodesNotes:4-5 cm left shoulder blade abscess , erythematous and tender to palpation. Cassius Schwartz NP [address] [place], [address], [place] - [facility] 03/22/2023 08:48:31 OBGyn Episode No OBEpisode recorded.
--- OUTSIDE RECORDS SUMMARY | 2025-06-08 08:47 | XMS_ITS | Clinical Summary ---
Author Organization [facility] Health Address [address] [place] [address] Care Team Providers Care Director Industrial Nursing Name Role Phone Unavailable Primary Care Provider [...]
--- OUTSIDE RECORDS SUMMARY | 2025-06-08 08:47 | XMS_ITS | Clinical Summary ---
Author Organization [facility] Address [address] [place] [address] Care Team Providers Care Electrical Lineman Name Role Phone Catrachito Curran DO Primary Care Provider + [phone] Allergies Active Allergy Reactions Criticality Noted Date Comments Fluoxetine 08/27/2024 Other reaction(s): fatigue Medications Medication Sig Dispensed Refills Start Date End Date Status atorvastatin (LIPITOR) tablet 40 mg Take 1 tablet (40 mg total) by mouth every evening. 0 11/30/2020 Active Lactobacillus-Inulin ([facility]) CAPS Take 200 mg by [...] this topic Medical Devices Implanted Type Area Plastics Plater Device Identifier Shelf Expiration Date Model / Serial / Lot Component Femoral Posterior Stabilized Rt Size 4 Beaded W\Pe - [id number] - [id number] Implanted:Qty: 1 on 01/24/2021 by Daniel Kay MD at [facility] and [facility] Right: Knee [employer] [id number] 07/19/2024 5516-F-402 / / [id number] Triathlon Tritanium Baseplate Size 5 - [id number] - [id number] Implanted:Qty: 1 on 01/24/2021 by Daniel Kay MD at [facility] and [facility] Right: Knee [employer] [id number] 10/15/2025 5536-B-500 / / [id number] Insert Triathlon 5 11mm Posterior Stabilized Bearing X3 - [id number] - [id number] Implanted:Qty: 1 on 01/24/2021 by Daniel Kay MD at [facility] and [facility] Right: Knee [employer] [id number] 11/24/2024 5532-G-511 / / [id number] Tritanium Asymmetric Metal Backed Patella 29mm - [id number] - [id number] Implanted:Qty: 1 on 01/24/2021 by Daniel Kay MD at [facility] and [facility] Right: Knee [employer] [id number] 12/30/2025 5552-L-299 / / [id number] Advance Directives For more information, please contact: [phone] Latest Code Status on File Code Status [...] way: discussion with patient . Care Teams Electrical Lineman Relationship Specialty Start Date End Date Catrachito Curran DO [address] [place] [phone] PCP - General Internal Medicine 12/30/20
[2025-06-08 10:29] LABS: Hemoglobin A1C 131.8682 umol/L; Total Hemoglobin (HGBA1C) 3687.6292 umol/L
[2025-06-08 10:49] LABS: Cholesterol 164 mg/dL (<200); HDL Cholesterol 48 mg/dL (>40); Magnesium 2.3 mg/dL (1.6-2.6); Triglycerides 91 mg/dL (<150)
[2025-06-08 10:50] LABS: Anion Gap 10 (12-20); Blood Urea Nitrogen 17 mg/dL (9-16); Calcium 9.0 mg/dL (8.4-10.2); Carbon Dioxide 28 mmol/L (22-29); Chloride 109 mmol/L (96-108); Estimated Glomerular Filt Rate > 60; Potassium 4.3 mmol/L (3.3-5.1); Sodium 143 mmol/L (135-145)
[2025-06-08 10:57] LABS: Folate 9.3 ng/mL (> or = 4.0); Vitamin B12 758 pg/mL (200-900)
== END 2025-06-08 08:39 | disposition home or self-care (01) ==
LOC: HO.HMGCLDS 08:38
PROVIDERS: PCP Internal Medicine; Visit Provider Physician Assistant Medical
DX: Z00.00 Encounter for general adult medical examination without abnormal findings (principal); I10 Essential (primary) hypertension; E78.2 Mixed hyperlipidemia; Z82.49 Family history of ischemic heart disease and other diseases of the circulatory system
CPT/HCPCS: 36415; 80048; 80061; 82306; 82607; 82746; 83036; 83735; 84443

== ENCOUNTER 2025-07-24 11:31 | Outpatient (AMB) | payer MEDICARE, SELFPAY ==
--- OUTSIDE RECORDS SUMMARY | 2024-09-04 13:05 | XMS_ITS | Encounter Summary ---
Author Organization [facility] [place] [address] Care Team Providers Care Golf Course Superintendent Name Role Phone Bina Catrachito Primary Care Provider [phone] Encounter Details Date Type Department Care Team (Late st Contact Info) Description 09/04/2024 1:05 PM EDT Hospital Encounter TH HISTORIC ENCOUNTERS EASTERN CONVERSION ONLY Sarah Gonzalez MD [address] [place] [address] Social History Tobacco Use Types Packs/Day Years Used Date Smoking Tobacco: Former Cigarettes Passive Smoke Exposure: Past Smokeless Tobacco: Never Comments:1 PPD/ 30 YEARS, QU IT 1993 Alcohol Use Standard Drinks/Week Comments Not Currently 0 (1 standard drink = 0.6 oz pur e alcohol) Interpersonal Safety Answer Date Record ed Physical Abuse 09/24/2024 Verbal Abuse 09/24/2024 Comments Unknown Sex and Gender Information [...] 2:40 PM EDT documented in this encounter Progress Notes * Sarah Gonzalez MD - 09/04/2024 1:30 PM EDT Images from the original note were not included. Progress Notes by Sarah Gonzalez MD at 09/04/2024 1:30 PM Author: Sarah Gonzalez MD Service: -- Author Type: Physician Filed: 09/04/2024 1:59 PM Encounter Date: 09/04/2024 Status: Signed Search Engine Optimizer: Sarah Gonzalez MD (Physician) Cardiology Attending New [...] years old. Her father also of an [place]. She remains reasonably physically active including gardening, goes to [facility] For exercise, twice a week, she walks [...] date: 1964 Quit date: 1993 Years since quittin. ? Smokeless tobacco: Never Substance and Sexual [...] PO Take by mouth daily. ? Lactobacillus-Inulin ([facility]) CAPS Take 200 mg by mouth daily. [...] on filedocumented in this encounter Care Teams Golf Course Superintendent Relationship Specialty Start Date End Date Catrachito Curran DO [address] [place] [phone] PCP - General Internal Medicine 12/30/20 documented as of this encounter
--- OUTSIDE RECORDS SUMMARY | 2024-09-15 09:13 | XMS_ITS | Encounter Summary ---
Author Organization [facility] [place] [address] Care Team Providers Care Casting House Worker Name Role Phone Bina Catrachito Primary Care Provider [phone] Encounter Details Date Type Department Care Team [...] 9:14 AM EDT documented in this encounter Plan of Treatment [...] low risk study for cardiac events. 8 Sarah Gonzalez MD CV HISTORICAL CONV PROCE DURES Final Result documented in this encounter Visit Diagnoses Diagnosis Encounter for other preprocedural examination documented in this encounter Care Teams Casting House Worker Relationship Specialty Start Date End Date Catrachito Curran DO [address] [place] [phone] PCP - General Internal Medicine 12/30/20 documented as of this encounter
--- OUTSIDE RECORDS SUMMARY | 2024-09-15 09:13 | XMS_ITS | Encounter Summary ---
Author Organization [facility] Address [address] [place] [address] Care Team Providers Care Hat Presser Name Role Phone Catrachito Curran DO Primary Care Provider [phone] Encounter Details Date Type Department Care Team ([facility] Contact Info) Description 09/15/2024 9:13 AM EDT [...] 2:40 PM EDT documented in this encounter Plan of Treatment Not on file documented as of this encounter Visit Diagnoses Not on filedocumented in this encounter Care Teams Hat Presser Relationship Specialty Start Date End Date Catrachito Curran DO [address] [place] [phone] PCP - General Internal Medicine 12/30/20 documented as of this encounter
--- OUTSIDE RECORDS SUMMARY | 2024-09-16 14:24 | XMS_ITS | Encounter Summary ---
Author Organization [facility] Address [address] [place] [address] Care Team Providers Care Dials Inspector Name Role Phone Bina Catrachito Primary Care Provider [phone] Encounter Details Date Type Department Care Team [...] on 09/16/2024 3:00 PM. Workstation Name - [id number] Procedure Note Gigi Santamaria MD - 09/20/2024 [...] MD on 43:00 PM. Workstation Name - [id number] Daniel Kay MD IMG CT PROCEDURES Final Result documented in this encounter Visit Diagnoses Diagnosis Unilateral primary osteoarthritis, left knee Pain in left knee documented in this encounter Care Teams Dials Inspector Relationship Specialty Start Date End Date Catrachito Curran DO [address] [place] [phone] PCP - General Internal Medicine 12/30/20 documented as of this encounter
--- OUTSIDE RECORDS SUMMARY | 2024-09-22 10:30 | XMS_ITS | Encounter Summary ---
Author Organization [facility] Address [address] [place] [address] Care Team Providers Care Reflector Driller And Deburrer Name Role Phone Catrachito Curran DO Primary Care Provider [phone] Reason for Visit * Auth/Cert Inpatient Observation or Outpatient Surgery Specialty Diagnoses / Procedures Referred By Hugo gil Referred To Contact Diagnoses Degenerative arthritis of left knee Degenerative arthritis of left knee [M17.12] Procedures [place] ARTHRP KNE CONDYLE&PLATU MEDIAL&LAT COMPARTMENTS REPLACEMENT TOTAL KNEE WITH KELLY [facility] [address] [place] [address] Referral ID Status Reason Start Date Expiration Date Visits Re quested Visits Authorized [id number] 1 1 Encounter Details Date Type Department Care Team Description 09/22/2024 9:30 AM EST Hospital Encounter CT Joint Replacement [place] [address] [place] [address] Daniel Kay MD Social History Tobacco Use [...] on filedocumented in this encounter Care Teams Reflector Driller And Deburrer Relationship Specialty Start Date End Date Catrachito Curran DO [address] [place] [phone] PCP - General Internal Medicine 12/30/20 documented as of this encounter
[2025-07-24 11:33] VITALS: BP 133/69; PULSE 77; RESP 16; TEMP 36.9; O2SAT 98; BMI 30.4
--- NOTE | 2025-07-24 11:33 | A.OFFPC_ITS ---
Vital Signs 07/24/25 11:33 Height 5 ft 4 in Weight 177 lb BMI 30.4 BP 133/69 Respiration 16 Pulse 77 Pulse Source Pulse Oximeter Temp 98.5 F Temp Source Temporal Artery Scan Pulse Oximetry (%) 98 Oxygen Delivery Method Room Air Intake Visit Reasons: 6 month f/u Business Development Agent Required: No Accompanied by: Self / Same As Patient Allergies No Known Allergies (No Known Allergies*) Allergy (Verified 07/24/25 11:46) Medication List - Last Reconciled 07/24/25 by Ashley Lloyd PA-C alendronate (Fosamax) 70 mg PO QWEEK 3 months atorvastatin 20 mg PO QPM cholecalciferol (vitamin D3) 50 mcg PO DAILY levothyroxine 75 mcg PO QAM 90 days multivitamin (Daily Multi-Vitamin tablet) pt uses [facility] [place] vitamins 3 PO daily; omeprazole 40 mg PO DAILY trazodone 50 mg PO BEDTIME venlafaxine ER 150 mg (2 x 75 mg) PO DAILY 90 days Tobacco use date assessed: 07/24/25 Dental Screening Dental Screen Date: 03/27/25 HPI 6 month f/u HPI Details The patient is an 80-year-old female presenting with a follow-up for blood work and tests. The patient has a history of osteopenia, identified during a bone density test, affecting her hips and left femoral neck but sparing her lumbar spine. She is on Fulsamax for management. The patient experiences gastroesophageal reflux disease (GERD) and was advised to discontinue omeprazole to assess symptom recurrence. She resumed omeprazole after a severe reflux episode. The patient reports urinary incontinence and is scheduled for a urologist follow-up, with a bladder ultrasound ordered. The patient reports respiratory issues, feeling winded after short walks, will prescribe her albuterol as a rescue inhaler and will Wixela inhaler until her pulmonology appointment. The patient has a history of knee replacements and a recent fall without injury. She also experienced a wasp sting in April, leading to swelling and scabbing. Social History - Exercise: Patient reports being winded after walking short distances. [facility] Medical History Osteopenia Obesity (BMI 30-39.9) Asthma History of breast cancer Establishing care with new doctor, encounter for History of smoking Shortness of breath Urinary incontinence Epigastric abdominal pain GERD (gastroesophageal reflux disease) Scoliosis deformity of spine Diaphragm, eventration Dyspnea on exertion History of right breast cancer Arthritis Hypothyroid Depression COPD (chronic obstructive pulmonary disease) Elevated cholesterol Surgical History Hx of arthroscopy of knee History of bunionectomy Hx of hysterectomy Hx of colonoscopy History of lumpectomy of right breast Family History Father Heart attack Mother AD (Alzheimer's disease) Sister Heart attack Social History Housing: House Do you presently have visiting nurse or other home services: No Alcohol intake: current Alcohol intake frequency: does not drink Patient Tobacco Use Status: Former Tobacco user Years Smoked: 31 service: No Current occupational status: retired Cognitive needs: Yes (uses cane when needed) Hearing needs: No Vision needs: Yes (rx glasses) Questionnaire PHQ-9 Over the last 2 weeks, how often have you been bothered by any of the following problems? 1. Little interest or pleasure in doing things: several days 2. Feeling down, depressed, or hopeless: not at all 3. Trouble falling or staying asleep, or sleeping too much: several days 4. Feeling tired or having little energy: several days 5. Poor appetite or overeating: not at all 6. Feeling bad about yourself - or that you are a failure or have let yourself or your family down: not at all 7. Trouble concentrating on things, such as reading the newspaper or watching television: not at all 8. Moving or speaking so slowly that other people could have noticed. Or the opposite - being so fidgety or restless that you have been moving around a lot more than usual: not at all 9. Thoughts that you would be better off or of hurting yourself in some way: not at all Total score: 3 Depression Screening Interpretation: Negative Depression Screening Done: Yes 92187 - PHQ-9 Billing: Yes Source: Developed by Drs. Catrachito Hubbard, Sho Sanchez, Tenzin Taylor and colleagues, with an educational padmini from [employer]. Thrive Questionnaire Date Thrive assessed: 03/27/25 I am a: Patient What is your living situation today?: I have a steady place to live Within the past 12 months, did the food you bought not last and you didn't have the money to get more?: Never true Within the past 12 months, did you worry whether your food would run out before you got money to buy more?: Never true Do you have trouble paying for medicines?: No Do you have trouble getting transportation to medical appointments?: No Do you have trouble paying your heating and electricity bill?: No Do you have trouble taking care of your child, family member or friend?: No Do you have trouble with day-to-day activities such as bathing, preparing meals, shopping, managing finances, etc.?: No Are you currently unemployed and looking for a job?: No Are you interested in more education?: No Please select the resources that you would like help with: None THRIVE Score: 0 AUDIT C Alcohol Use Questionnaire (AUDIT-C) 1. How often do you have a drink containing alcohol?: Never 3. How often do you have six or more drinks on one occasion?: Never Total Score: 0 Score Reviewed/Action Taken: No EMILEE-7 AMB Questionnaire EMILEE-7 Date EMILEE - 7 assessed: 03/27/25 Feeling nervous, anxious, or on edge: 0 = Not at all Not being able to stop or control worryin = Not at all Worrying too much about different things: 0 = Not at all Trouble relaxin = Not at all Being so restless that it is hard to sit still: 0 = Not at all Becoming easily annoyed or irritable: 0 = Not at all Feeling afraid as if something awful might happen: 0 = Not at all Total EMILEE-7 score (0-4 normal; 5-9 mild; 10-14 moderate; 15-21 severe): 0 Source: Developed by Drs. Catrachito Hubbard, Sho Sanchez, Tenzin Taylor and colleagues, with an educational padmini from [employer]. EMILEE-7 Assessment Billing EMILEE-7 Assessment Tool: EMILEE-7 Assessment 28447 Review of Systems Const Details: - Musculoskeletal: Reports osteopenia in hips and left femoral neck. Denies lumbar spine involvement. - Gastrointestinal: Reports severe gastroesophageal reflux when not on omeprazole. - Genitourinary: Reports urinary incontinence. - Respiratory: Reports dyspnea on exertion. - Integumentary: Reports swelling and scabbing at the site of a wasp sting. All systems reviewed & are unremarkable except as noted in HPI and below Physical exam (Primary Care) Vital Signs: Last Vital Signs Temp 98.5 F 07/24/25 11:33 Pulse 77 07/24/25 11:33 Resp 16 07/24/25 11:33 BP 133/69 07/24/25 11:33 Pulse Ox 98 07/24/25 11:33 Oxygen Delivery Method Room Air 07/24/25 11:33 Care Plan Goal for BP management: <140/90 at goal BMI result Body Mass Index 30.4 BMI Assessment/Plan discussion: High BMI High, discussed plan: lifestyle, weight reduction, dietary, physical activity, alcohol moderation and other Tobacco/Smoking Status: Tobacco use Status Tobacco use date assessed 07/24/25 07/24/25 11:42 Patient Tobacco Use Status Former Tobacco user 07/24/25 11:42 PHQ-9: PHQ-9 Score PHQ-9: Total score 3 07/24/25 11:42 Depression Screening Interpretation: Negative Thrive Assessment: Date of Thrive Assessment Date Thrive assessed 03/27/25 07/24/25 11:42 Const Other: Appearance: Alert. Oriented X3. No acute distress. Head: Normal external exam. Normocephalic. Atraumatic. Eyes: Pupils are equal, round, and reactive to light. Extraocular movements intact. Conjunctiva and sclera normal. Eyelids normal. Throat: Pharynx normal. Uvula midline. Moist mucous membranes. Neck: Normal inspection. Neck supple. Full range of motion. Cardiovascular: Normal heart rate and rhythm. Respiratory: No respiratory distress. Painless inspiration. Back: Full range of motion noted. Skin: Skin warm and dry. Normal skin color. Normal skin turgor. No rashes/lesions/lacerations noted. Scab to left lower leg from a wasp thing in April. Scab removed. No signs of infection. Cleaned with alcohol. Extremities: No lower extremity edema. Extremities exhibit normal range of motion. Extremities nontender. Neuro: Oriented X 3. No motor deficit. No sensory deficit. Reflexes normal. Results Reviewed Results Reviewed: - Labs: A1c 5.4, indicating no diabetes. - Labs: Cholesterol total 164 mg/dL, LDL 98 mg/dL, HDL 48 mg/dL, triglycerides 91 mg/dL, all within normal range. - Labs: Thyroid function normal as of May. - Imaging: Bone density test shows osteopenia in hips and left femoral neck. - Imaging: Abdominal ultrasound normal, no gallstones or kidney stones, liver normal. Coding Level of Care Code Est Pt Level 4 (46957) Complex EM visit Add On G2211 Diagnoses Osteopenia M85.80 GERD (gastroesophageal reflux disease) K21.9 Urinary incontinence R32 History of smoking Z87.891 Additional Codes EMILEE-7 Assessment Billing - EMILEE-7 Assessment Tool: EMILEE-7 Assessment 37734 ([id number]) PHQ-9 - 11640 - PHQ-9 Billing: Yes ([id number]) Assessment & Plan Assessment & Plan (1) Osteopenia: Code(s): M85.80 - Other specified disorders of bone density and structure, unspecified site Category: Medical Plan: The patient is advised to continue Fosamax and monitor bone density regularly. (2) GERD (gastroesophageal reflux disease): Code(s): K21.9 - Gastro-esophageal reflux disease without esophagitis Category: Medical Plan: The patient should continue monitoring GERD symptoms and adjust omeprazole as needed. (3) Urinary incontinence: Code(s): R32 - Unspecified urinary incontinence Category: Medical Plan: The patient is scheduled for a urologist follow-up and a bladder ultrasound. (4) History of smoking: Code(s): Z87.891 - Personal history of nicotine dependence Category: Social Hx Plan: The patient will use an inhaler for symptomatic relief until her pulmonology appointment. Plan Plan Patient was informed and verbally consented to the use of an ambient scribe for clinic note documentation during this visit. 1. Osteopenia The patient is advised to continue Fosamax and monitor bone density regularly. 2. Gastroesophageal Reflux Disease (Gerd) The patient should continue monitoring GERD symptoms and adjust omeprazole as needed. 3. Urinary Incontinence The patient is scheduled for a urologist follow-up and a bladder ultrasound. 4. Respiratory Issues The patient will use an albuterol inhaler as a rescue inhaler and Wixela inhaler for symptomatic relief until her pulmonology appointment for possible undiagnosed COPD due to history of smoking many years ago. I discussed with the patient the management of her osteopenia with Fulsamax and the importance of regular monitoring. We reviewed her GERD management, advising her to monitor symptoms and adjust omeprazole as needed. We planned for a urologist follow-up and bladder ultrasound to evaluate urinary incontinence. I provided an inhaler for her respiratory issues to use until her pulmonology appointment. Medications: New albuterol sulfate 90 mcg/actuation 1 inh inhalation QID PRN 6.7 grams 0RF shortness of breath or wheezing fluticasone propion-salmeterol 250-50 mcg/dose (Wixela Inhub) 1 inh inhalation BID 60 ea 3RF Patient Instructions: - Continue taking Fulsamax as prescribed and monitor bone density regularly. - Monitor GERD symptoms and adjust omeprazole as needed. - Attend urologist follow-up and bladder ultrasound appointment. - Use inhaler as needed for respiratory symptoms until pulmonology appointment.
--- OUTSIDE RECORDS SUMMARY | 2025-07-24 12:26 | XMS_ITS | Encounter Summary ---
Author Organization [facility] Address [address] [place] [address] Phone Care Team Providers Care Seed Mill Superintendent Name Role Phone Catrachito Curran DO Primary Care Provider [phone] Encounter Details Date Type Department Care Team (Late st Contact Info) Description 10/10/2019 Procedure Pass OR Admitting Dept - Virtual Department [address] [place] [address] Social History Tobacco Use Types Packs/Day Years [...] on filedocumented in this encounter Care Teams Seed Mill Superintendent Relationship Specialty Start Date End Date Catrachito Curran DO [address] [place] [phone] PCP - General Internal Medicine 07/07/19 documented as of this encounter Additional Source Comments The information contained in this document represents components of the legal health record. It is not the complete legal health record.[facility]
--- OUTSIDE RECORDS SUMMARY | 2025-07-24 12:27 | XMS_ITS | Encounter Summary ---
Author Organization [facility] Address [address] [place] [address] Phone Care Team Providers Care Logistics Engineer Name Role Phone Catrachito Curran DO Primary Care Provider + [phone] Encounter Details Date Type Department Care Team (Late st Contact Info) Description 08/18/2019 Prep for Surgery [facility] Orthopedics & Sports Medicine [address] [place] [address] Wendi Nick MD [address] [place] [address] Orthopedics & Sports Medicine, [facility] [place] [address] Social History Tobacco Use Types Packs/Day Years Used Date Smoking Tobacco: Never Assessed Comments Unknown Sex and Gender Information Value Date Recorded Sex Assigned at Not on file Legal Sex Female 1:19 PM EDT Gender Identity Not on file Sexual Orientation Not on file documented as of this encounter Plan of Treatment Not on file documented as of this encounter Visit Diagnoses Not on filedocumented in this encounter Care Teams Logistics Engineer Relationship Specialty Start Date End Date Catrachito Curran DO [address] [place] [address] PCP - General Internal Medicine 07/07/19 documented as of this encounter Additional Source Comments The information contained in this document represents components of the legal health record. It is not the complete legal health record.[facility]
--- OUTSIDE RECORDS SUMMARY | 2025-07-24 12:27 | XMS_ITS | Clinical Summary ---
Author Organization Located Within [facility] Address [address] [place] [phone] Phone Care Team Providers Care Hr Business Partner Consultant Name Role Phone Catrachito Curran DO Primary Care Provider + [phone] Allergies No known active allergies Medications levothyroxine (SYNTHROID, LEVOTHROID) 75 MCG tablet TAKE 1 TABLET BY MOUTH EVERY DAY IN THE MORNING ON EMPTY STOMACH 1 05/31/2019 Active traZODone (DESYREL) 50 MG tablet TAKE 1 TABLET BY MOUTH EVERYDAY AT BEDTIME 1 05/10/2019 Active venlafaxine (EFFEXOR-XR) 75 MG 24 hr capsule TAKE 2 CAPSULES BY MOUTH EVERY DAY WITH FOOD 0 07/29/2019 Active atorvastatin (LIPITOR) 20 MG tablet Take 40 mg by mouth daily. 09/27/2024 Active lactobacillus rhamnosus GG-inulin (CULTURELLE PROBIOTIC) 10 billion cell -200 mg CpSP Take 200 mg by mouth daily. Active vitamins A,C,E-zinc-pop er (PRESERVISION AREDS) 14,320-226-200 huar-kr-oqgp Cap Take 1 capsule by mouth 2 (two) times a day with meals. Active sennosides/docu sate sodium (SONU-COLACE ORAL) Take 1 capsule by mouth daily. 01/27/2021 Active apixaban (ELIQUIS) 2.5 mg Take 2.5 mg by mouth 2 (two) times a day. 09/25/2024 Active acetaminophen (TYLENOL) 500 MG tablet Take 1,000 mg by mouth every 8 (eight) hours as needed for pain (specific location in comments). 09/27/2024 Active methocarbamoL (ROBAXIN) 750 MG tablet Take 750 mg by mouth every 6 (six) hours as needed (spasms). 09/27/2024 Active calcium/vit D3/mag/folic ac/K1 (CA CARBONATE-VIT Q8-DSVV-ZD-K ORAL) Take 10 mcg by mouth daily. 09/27/2024 Active Active Problems Problem Noted Date Diagnosed Date Trigger middle finger of right hand 09/05/2019 Trigger finger, right ring finger Trigger finger, left middle finger Trigger finger, left little finger Social History Tobacco Use Types Packs/Day Years Used Date Smoking Tobacco: Former Cigarettes Q uit: 09/04/1994 Smokeless Tobacco: Never Alcohol Use Standard Drinks/Week Comments Never 0 (1 standard drink = 0.6 oz pur e alcohol) Home Health Assessment: Transportation Answer Date Recorded Lack of Transportation (Medical) No 10/17/2024 Lack of Transportation (Non-Medical) No 10/17/2024 Patient Unable or Declines to Respond No 10/17/2024 Education Answer Date Recorded Are you interested in more education? Not on weston e 03/16/2023 Are you concerned about learning? Not on file 03/16/2023 No 03/16/2023 No 03/16/2023 Digital Access Answer Date Recorded No 04/14/2023 No 04/14/2023 No 04/14/2023 Reliable internet access at home? Not on file 04/14/2023 Device with a working camera? Not on file Comments No Sex and Gender Information Value Date Recorded Sex Assigned at Not on file Legal Sex Female 1:19 PM EDT Gender Identity Not on file Sexual Orientation Not on file Last Filed Vital Signs Vital Sign Reading Time Taken Comments Blood Pressure 138/84 10/17/2024 3:30 PM EST Pulse 78 10/17/2024 3:30 PM EST Temperature 36.7 C (98 F) 10/17/2024 3:30 PM EST Respiratory Rate 14 10/17/2024 3:30 PM EST Oxygen Saturation 99% 10/17/2024 3:30 PM EST Inhaled Oxygen Concentration - - Weight 72.1 kg (159 lb) 01/27/2020 1:21 PM EDT Height 163.8 cm (5' 4.5 ) 10/09/2019 8:30 AM EST Body Mass Index 26.87 10/09/2019 8:30 AM EST Plan of Treatment Health Maintenance Due Date Last Done Comments Adult Td,Tdap Booster 1945 DEPRESSION SCREENING 1956 PNEUMOCOCCAL VACCINES (50+ years) (1 of 1 - PCV) 02/12/1994 ZOSTER VACCINES (1 of 2) 02/12/1994 OSTEOPOROSIS SCREENING INITI AL (ONE-TIME) 02/12/2009 RSV VACCINE (1 - 1-dose 75+ series) 02/12/2019 TSH LEVEL 12/11/2022 12/11/2021 INFLUENZA VACCINE (#1) 2025 COVID-19 VACCINE (3 - 2024-2 6 season) 2025 02/08/2021, 12/23/2020 HEPATITIS A VACCINES Aged Out No long er eligible based on patient's age to complete this topic HIB VACCINES Aged Out No longer eligi ble based on patient's age to complete this topic MENINGOCOCCAL VACCINES (ACWY) Aged Out No longer eligible based on patient's age to complete this topic MENINGOCOCCAL VACCINES (B) Aged Out N o longer eligible based on patient's age to complete this topic Medical Devices Not on file Insurance MEDICARE PART A & B [facility] MEDICARE COMPLEMENT SUPPLEMENT [facility] RE[facility] MEDICARE PART A & B [place] MED[place] COM[place] SUPPLEMENT [facility] RE[facility] MEDICARE PART A & B [place] MED[place] COMPLE[place] SUPPLEMENT AETNA [facility] [place] RE[place] MEDICARE PART A & B [place] COM[place] SUPPLEMENT TNA [facility] [place] [facility] [place] REPLAC[place] MEDICARE PART A & B [facility] MEDICARE COMPLEMENT SUPPLEMENT [place] MEDICARE REPLACEMENT MEDICARE PART A & B [facility] MEDICARE COMPLEMENT SUPPLEMENT [place] MEDICARE REPLACEMENT MEDICARE PART A & B [place] MED[place]ARE COMPLEMENT SUPPLEMENT [facility] REPLAC[facility] MEDICARE PART A & B [place] MED[place]ARE COMPLEMENT SUPPLEMENT AETNA [facility] [place] RE[place] MEDICARE PART A & B [place] MEDICARE COMPLEMENT SU[place] [facility] Address: [address] [address] [facility] MEDIC[facility] REPLACEMENT Advance Directives For more information, please contact: [phone] (9AM - 5PM [facility], Sunday-Sunday) * Full Code (Presumed) (Latest Code Status on File) Date Activated Date Inactivated Comments 10/10/2019 7:44 AM 10/10/2019 1:50 PM * Full Code (Presumed) Date Activated Date Inactivated Comments 09/12/2019 7:33 AM 09/12/2019 4:40 PM Care Teams Hr Business Partner Consultant Relationship Specialty Start Date End Date Catrachito Curran DO [address] [place] [phone] PCP - General Internal Medicine 07/07/19 Additional Source Comments The information contained in this document represents components of the legal health record. It is not the complete legal health record.Loc[facility]
--- OUTSIDE RECORDS SUMMARY | 2025-07-24 12:27 | XMS_ITS | Encounter Summary ---
Author Organization [facility] Address [address] [place] [address] Phone Care Team Providers Care Crusher Machine Operator Name Role Phone Catrachito Curran DO Primary Care Provider [phone] Encounter Details Date Type Department Care Team (Late st Contact Info) Description 09/12/2019 Procedure Pass OR Admitting Dept - Virtual Department [address] [place] [phone] Social History Tobacco Use Types Packs/Day Years [...] on filedocumented in this encounter Care Teams Crusher Machine Operator Relationship Specialty Start Date End Date Catrachito Curran DO [address] [place] [phone] PCP - General Internal Medicine 07/07/19 documented as of this encounter Additional Source Comments The information contained in this document represents components of the legal health record. It is not the complete legal health record.[facility]
--- OUTSIDE RECORDS SUMMARY | 2025-07-24 12:27 | XMS_ITS | Clinical Summary ---
Author Organization [facility] Address [address] [place] [address] Care Team Providers Care Fire Investigation Lieutenant Name Role Phone Catrachito Curran DO Primary Care Provider + [phone] Allergies Active Allergy Reactions Criticality Noted Date Comments Fluoxetine 08/27/2024 Other reaction(s): fatigue Medications Medication Sig Dispensed Refills Start Date End Date Status atorvastatin (LIPITOR) tablet 40 mg Take 1 tablet (40 mg total) by mouth every evening. 0 11/30/2020 Active Lactobacillus-Inulin ([facility]) CAPS Take 200 mg by [...] Tdap) 04/25/2023 04/25/2013 COVID-19 Vaccine ( season) 2025 03/31/2022, 09/27/2021, 02/08/2021, Additional history exists Influenza Vaccine (#1) 2025 09/27/2021, 2020 Hepatitis B Vaccines Aged Out No long er eligible based on patient's age to complete this topic RSV Ped < 20 months Aged Out No longe r eligible based on patient's age to complete this topic Medical Devices Implanted Type Area Budget Director Device Identifier Shelf Expiration Date Model / Serial / Lot Component Femoral Posterior Stabilized Rt Size 4 Beaded W\Pe - [id number] - [id number] Implanted:Qty: 1 on 01/24/2021 by Daniel Kay [facility] [place] [facility] Right: Knee [employer] [id number] 07/19/2024 5516-F-402 / / [id number] Triathlon Tritanium Baseplate Size 5 - [id number] - [id number] Implanted:Qty: 1 on 01/24/2021 by Daniel Kay MD [place] [facility] Right: Knee [employer] [id number] 10/15/2025 5536-B-500 / / [id number] Insert Triathlon 5 11mm Posterior Stabilized Bearing X3 - [id number] - [id number] Implanted:Qty: 1 on 01/24/2021 by Daniel Kay MD at [facility] Right: Knee [employer] [id number] 11/24/2024 5532-G-511 / / [id number] Tritanium Asymmetric Metal Backed Patella 29mm - [id number] - [id number] Implanted:Qty: 1 on 01/24/2021 by Daniel Kay MD at [facility] Right: Knee [employer] [id number] 12/30/2025 5552-L-299 / / [id number] Advance Directives For more information, please contact: [phone] Latest Code Status on File Code Status [...] way: discussion with patient . Care Teams Fire Investigation Lieutenant Relationship Specialty Start Date End Date Catrachito Curran DO [address] [place] [phone] PCP - General Internal Medicine 12/30/20
--- OUTSIDE RECORDS SUMMARY | 2025-07-24 12:27 | XMS_ITS | Encounter Summary ---
Author Organization [facility] Health Address [address] [place] [address] Care Team Providers Care Streetcar Dispatcher Name Role Phone Unavailable Primary Care Provider Unavailabl e Prior Encounters Date Type Department Care Team Description 01/23/2025 2:00 PM PST Office Visit [facility] [address] [facility] [place] [address] [place] [phone] Kathy Guerrero DMD Dental caries, unspecified (Primary Dx); Encounter for dental examination and cleaning without abnormal findings 01/06/2025 1:30 PM PST Office Visit [facility] [address] [facility] [place] [address] [place] [phone] Garcia Moody DDS 12/10/2024 Orders Only [facility] [address] [facility] [place] [address] [place] [phone] Kathy Guerrero DMD 11/28/2024 2:00 PM PST Office Visit [facility] [address] [facility] [place] [address] [place] [phone] Kathy Guerrero DMD Last Filed Vital Signs [...] IMPLANT Routine 01/23/2025 12:0 0 AM PST OS CONSULT Routine 01/06/2025 1:30 PM PST 12 GUIDED TISSUE REGENERATION, EDENTULOUS [...]
--- OUTSIDE RECORDS SUMMARY | 2025-07-24 12:27 | XMS_ITS | Clinical Summary ---
Author Organization [facility] Address [address] [place] [address] Phone Care Team Providers Care Parts Specialist Name Role Phone BinaCatrachito varghese Primary Care Provider [phone] Allergies Active Allergy Reactions Criticality Noted Date Comments Fluoxetine 08/27/2024 Other reaction(s): fatigue Medications atorvastatin (LIPITOR) 40 mg tablet Take 1 tablet (40 mg total) by mouth. 11/30/2020 Active calcium carbonate-vitami n D3 600 mg-5 mcg (200 unit) per tablet 1 (one) time each day. Active Lactobac. rhamnosus GG-inulin 20 billion cell -200 mg capsule Take 200 mg by mouth. Active levothyroxine (SYNTHROID, LEVOTHROID) 75 mcg tablet TAKE 1 TABLET BY MOUTH EVERY DAY IN THE MORNING ON EMPTY STOMACH 05/31/2019 Active venlafaxine XR (EFFEXOR-XR) 75 mg 24 hr capsule 1 (one) time each day. 07/29/2019 Active vitamins A,C,E-vhqq-hrzdd r (PreserVision AREDS) 4,296 mcg-226 mg-90 mg capsule Take 1 capsule by mouth 1 (one) time each day. Active traZODone (DESYREL) 50 mg tablet Take 1 tablet (50 mg total) by mouth. 05/10/2019 Active losartan (Cozaar) 25 mg tabletIndication s:Hypertension, unspecified type Take 1 tablet (25 mg total) by mouth 1 (one) time each day. 90 each 3 03/20/2025 03/15/20 26 Active omeprazole (PriLOSEC) [address] capsule Take 1 capsule (40 mg total) by mouth 1 (one) time each day. 03/27/2025 Active Active Problems Problem Noted Date Diagnosed Date Mixed hyperlipidemia 03/20/2025 Hypertension 03/20/2025 Family history of coronary artery disease 2024 COPD (chronic obstructive pu lmonary disease) ([facility] [place], [facility] V28) 03/20/2025 Encounters Date Type Department Care Team Description 06/16/[address] [place] [facility] [address] [phone] Stephanie Landis MA 05/26/2025 1:00 PM EDT Office Visit [facility] [place] [facility] [address] [phone] Sarah Gonzalez MD Hypertension, unspecified type (Primary Dx) from Last 3 Months Immunizations Name Administration Dates Next Due Moderna SARS-CoV-2 COVID-19, mRNA, LNP-S, preservative free 03/31/2022,09/27/2021 Pfizer SARS-CoV-2 COVID-19, mRNA, LNP-S, preservative free 02/08/2021,12/23/2020 Surgical History Surgery Date Site/Laterality Comments BREAST LUMPECTOMY COLONOSCOPY BUNIONECTOMY HYSTERECTOMY KNEE ARTHROSCOPY Right KNEE ARTHROPLASTY 11/19/2020 - 11/18/2021 Right TRIGGER FINGER RELEASE Medical History Medical History Date Comments Cancer ([facility], [facility] V28) 2011 RT BREAST- MELISSA AND RAD [place] COPD (chronic obstructive pu lmonary disease) ([facility], [facility] V28) DVT (deep venous thrombosis) ([facility] [place]24, [facility] V28) [place] Depression Shortness of breath [...] Sign Reading Time Taken Comments Blood Pressure 116/62 05/26/2025 1:10 PM EDT Pulse 74 05/26/2025 1:10 PM EDT Temperature 37.1 C (98.8 F) 09/26/2024 8:51 AM EST Respiratory Rate 18 09/26/2024 8:51 AM EST Oxygen Saturation 97% 05/26/2025 1:10 PM EDT Inhaled Oxygen Concentration - - Weight 79.8 kg (176 lb) 05/26/2025 1:10 PM EDT Height 162.6 cm (5' 4 ) 05/26/2025 1:10 PM EDT Body Mass Index 30.21 05/26/2025 1:10 PM EDT Plan of Treatment Health Maintenance Due Date Last Done Comments DTaP,Tdap,and Td Vaccines (1 - Tdap) 02/12/1964 Pneumococcal Vaccine: 50+ Years (1 of 2 - PCV) 02/12/1963 Zoster Vaccines (1 of 2) 02/12/1963 RSV Immunization Adult Patients (1 - 1-dose 75+ series) 02/12/2019 Cholesterol Screening (Lipid Panel) 09/03/2024 Medicare Annual Wellness Visit 09/03/2024 Osteoporosis Screening (Bone Density Screening) 09/03/2024 Social Influencers of Health Screening 09/03/2024 Depression Screening 11/19/2024 COVID-19 Vaccine ( season) 2025 03/31/2022, 09/27/2021, 02/08/2021, Additional history exists Influenza Vaccine (#1) 2025 Hypertension/CHF/CAD Annual BMP Blood Test 09/10/2025 [...] this topic Medical Devices Implanted Type Area Dealer Accounts Investigator Device Identifier Shelf Expiration Date Model / Serial / Lot Knee Insrt Cs X3 Sz4 11mm - [id number] Implanted:Qty: 1 on 09/24/2024 by Daniel Kay MD at [facility] Knee Left: Knee [employer] [id number] 05/06/2029 5531-G-41 1 / / [id number] Knee Bsplt Triathlon Ti Sz 4 - [id number] Implanted:Qty: 1 on 09/24/2024 by Daniel Kay MD at [facility] Knee Left: Knee [employer] [id number] 07/02/2029 5536-B-40 0 / / [id number] Knee Fem Bsplt Beaded W/Pa Sz4 L - [id number] Implanted:Qty: 1 on 09/24/2024 by Daniel Kay MD at [facility] Knee Left: Knee [employer] [id number] 07/31/2029 5517-F-40 1 / / [id number] Knee Ptla Asym Tritanium 29x9 - [id number] Implanted:Qty: 1 on 09/24/2024 by Daniel Kay MD at [facility] Knee Left: Knee [employer] [id number] 06/26/2029 5552-L-29 9 / / [id number] Component Femoral Posterior Stabilized Rt Size 4 Beaded W\Pe - [id number] Implanted:Qty: 1 on 01/24/2021 by Daniel Kay MD Right: Knee [employer] [id number] 07/19/2024 5516-F-40 2 / / [id number] Triathlon Tritanium Baseplate Size 5 - [id number] Implanted:Qty: 1 on 01/24/2021 by Daniel Kay MD Right: [employer] [id number] 10/15/2025 5536-B-50 0 / / [id number] Insert Triathlon 5 11mm Posterior Stabilized Bearing X3 - [id number] Implanted:Qty: 1 on 01/24/2021 by Daniel Kay MD Right: Knee [employer] [id number] 11/24/2024 5532-G-51 1 / / [id number] Tritanium Asymmetric Metal Backed Patella 29mm - [id number] Implanted:Qty: 1 on 01/24/2021 by Daniel Kay MD Right: Knee [employer] [id number] 12/30/2025 5552-L-29 9 / / [id number] Procedures Procedure Name Priority Date/Time Associated [...] currently active code status orders. Care Teams Parts Specialist Relationship Specialty Start Date End Date Catrachito Curran DO [address] [place] [phone] PCP - General Internal Medicine 12/30/20
--- OUTSIDE RECORDS SUMMARY | 2025-07-24 12:27 | XMS_ITS | Encounter Summary ---
Author Organization [facility] Address [address] [place] [phone] Phone Care Team Providers Care Alterations Tailor Name Role Phone Catrachito Curran DO Primary Care Provider + [phone] Encounter Details Date Type Department Care Team (Late st Contact Info) Description 09/24/2019 Prep for Surgery [facility]ics & Sports Medicine [address] [place] [phone] Wendi Nick MD [address] [place] [address] Orthopedics & Sports Medicine, [facility] [place] [address] [email or web address] Social History Tobacco Use Types Packs/Day Years [...] on filedocumented in this encounter Care Teams Alterations Tailor Relationship Specialty Start Date End Date Catrachito Curran DO [address] [place] [phone] PCP - General Internal Medicine 07/07/19 documented as of this encounter Additional Source Comments The information contained in this document represents components of the legal health record. It is not the complete legal health record.[facility]
--- OUTSIDE RECORDS SUMMARY | 2025-07-24 12:27 | XMS_ITS | Clinical Summary ---
Author Organization [facility] Health Address [address] [place] [address] Care Team Providers Care Resident Care Provider Name Role Phone Unavailable Primary Care Provider [...]
== END 2025-07-24 12:04 | disposition home or self-care (01) ==
LOC: HO.HMCSH 11:31
PROVIDERS: PCP Internal Medicine; Visit Provider Physician Assistant Medical
DX: M85.80 Other specified disorders of bone density and structure, unspecified site (principal); K21.9 Gastro-esophageal reflux disease without esophagitis; R32 Unspecified urinary incontinence; Z87.891 Personal history of nicotine dependence

== ENCOUNTER → 2025-07-24 11:31 | Outpatient (BNVA) | payer MEDICARE, SELFPAY | PROVIDERS: PCP Internal Medicine; Visit Provider Physician Assistant Medical | DX: K21.9 Gastro-esophageal reflux disease without esophagitis (principal); M85.80 Other specified disorders of bone density and structure, unspecified site; R32 Unspecified urinary incontinence; Z96.653 Presence of artificial knee joint, bilateral; Z87.891 Personal history of nicotine dependence | CPT/HCPCS: 96127; 99212 ==

== ENCOUNTER 2025-07-24 13:30 | Outpatient (REF) | payer MEDICARE, SELFPAY | END 2025-07-24 13:31 | disposition home or self-care (01) | LOC: HO.HMGCLNP 13:30 | PROVIDERS: PCP Physician Assistant Medical; Visit Provider Physician Assistant Medical | DX: R10.13 Epigastric pain (principal); K21.9 Gastro-esophageal reflux disease without esophagitis | CPT/HCPCS: 87338 ==

== ENCOUNTER 2025-08-13 13:50 | Outpatient (REF) | payer MEDICARE, SELFPAY ==
--- NOTE | ~2025-08-13 | XR_ITS ---
EXAMINATION: XR CHEST CLINICAL INFORMATION: J45.909 - Unspecified asthma, uncomplicated COMPARISON: 05/05/2022, CT chest 03/23/2021. TECHNIQUE: 2 views of the chest were obtained. FINDINGS: Markedly elevated right hemidiaphragm, unchanged from prior exam. The cardiac, hilar, and mediastinal contours are normal. The lungs are clear bilaterally. There is no pneumothorax or pleural effusion. There is no focal osseous or soft tissue abnormality. Surgical clips noted in the right breast. There is an S-shaped scoliosis of the thoracic spine with associated mild degenerative changes. XR/XR chest 2V IMPRESSION: 1. Stable elevated right hemidiaphragm. 2. No active pulmonary disease. Electronically signed by: Samm Gimenez MD 08/13/2025 04:07 PM EDT
== END 2025-08-13 13:51 | disposition home or self-care (01) ==
LOC: HO.XRAY 13:50
PROVIDERS: PCP Internal Medicine; Visit Provider Hospitalist
DX: R06.02 Shortness of breath (principal); J45.40 Moderate persistent asthma, uncomplicated; J98.6 Disorders of diaphragm
CPT/HCPCS: 71046; 99202

== ENCOUNTER 2025-08-13 13:50 | Outpatient (AMB) | payer MEDICARE, SELFPAY ==
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
--- NOTE | 2025-08-13 14:34 | MHC.OFFVIS ---
Vital Signs 08/13/25 14:37 Height 5 ft 4 in Weight 175 lb 4.28 oz BMI 30.1 BP 118/68 Blood Pressure Location Lt brachial Position Sitting Pulse 72 Pulse Source Pulse Oximeter Pulse Oximetry (%) 96 Oxygen Delivery Method Room Air Intake Visit Reasons: Shortness of breath Accompanied by: Self / Same As Patient Allergies No Known Allergies (No Known Allergies*) Allergy (Verified 08/13/25 14:41) HPI Comments Details: The patient is here for pulmonary evaluation. The patient is an 80 year woman with a past history of underlying asthma who presents with worsening dyspnea on exertion. The patient apparently had been seen by Pulmonary in the past. She had noted to have an elevated hemidiaphragm. Primarily in the right hemithorax. She did have a pulmonary function study at that time. No evidence of any definitive obstruction. Lately she has been more shortness of breath and chest tightness. Primarily with activity. Moderate severity. She was started on a short-acting beta agonist also given a prescription for Wixela. She has not try the Wixela. Although she has use the rescue inhaler only with partial improvement. Explained to the patient that this is a short-acting medication and will wear off in about 4 hours and therefore it will not help her throughout the day. The patient did go for brief walking oximetry with me. The patient did not desaturate throughout the ambulation. Bowel after walking around 400 feet. The oxygenation was stable and heart rate was also stable. She was minimally dyspneic. at this point the patient will start the Wixela at least daily. Will go ahead and request pulmonary function studies and also a repeat chest x-ray. If the x-ray continues to be abnormal will consider a CT scan of the chest to better address the elevated right hemidiaphragm that may be affecting her respiratory capacity. She denies any potential trauma to the areas far as blunt trauma. She states that when she was a child she was coughing a lot for few months and the doctor told her that her lung may not mature. She is not exactly sure about the details. She is not aware of aspirating any foreign body into her lungs. At this point will have her undergo the breathing studies in the chest x-ray and will follow-up in 2-3 months. If she develops any worsening symptoms or any concerning issues she can always call further recommendations. [facility] Medical History (Updated 08/13/25 @ 21:31 by Bipin Jenkins MD) Elevated diaphragm Osteopenia Obesity (BMI 30-39.9) Asthma History of breast cancer Establishing care with new doctor, encounter for History of smoking Shortness of breath Urinary incontinence Epigastric abdominal pain GERD (gastroesophageal reflux disease) Scoliosis deformity of spine Diaphragm, eventration Dyspnea on exertion History of right breast cancer Arthritis Hypothyroid Depression COPD (chronic obstructive pulmonary disease) Elevated cholesterol Surgical History Hx of arthroscopy of knee History of bunionectomy Hx of hysterectomy Hx of colonoscopy History of lumpectomy of right breast Family History Father Heart attack Mother AD (Alzheimer's disease) Sister Heart attack Social History Housing: House Do you presently have visiting nurse or other home services: No Alcohol intake: current Alcohol intake frequency: does not drink Patient Tobacco Use Status: Former Tobacco user Years Smoked: 31 service: No Current occupational status: retired Cognitive needs: Yes (uses cane when needed) Hearing needs: No Vision needs: Yes (rx glasses) Review of Systems Const Denies fever(s) ENT Denies nasal congestion and Denies nasal discharge Card Denies chest pain and Reports dyspnea on exertion Resp Reports as per HPI and Reports dyspnea on exertion GI Reports no additional complaints Reports no additional complaints Musc Reports no additional complaints Neuro Reports no additional complaints and Reports Abnormal speech present Psych Reports anxiety (MILD ) Endo Reports no additional complaints Physical Exam Vital Signs: Last Vital Signs Pulse 72 08/13/25 14:37 BP 118/68 08/13/25 14:37 Pulse Ox 96 08/13/25 14:37 Oxygen Delivery Method Room Air 08/13/25 14:37 BMI result Body Mass Index 30.1 Const General: comfortable HEENT Head: Yes normocephalic Neck Neck: Yes supple Chest Chest palpation & inspection: normal inspection of the chest Resp Effort & Inspection: normal respiratory effort Auscultation: wheezes and diminished lung sounds Cardio Heart sounds: S1 normal heart sound present and S2 normal heart sound present GI Palpation (GI): Soft to palpation Skin General skin exam: no rashes or lesions noted Neuro Speech: Abnormal speech present Extrem General: Yes no clubbing, cyanosis or edema Assessment & Plan Assessment & Plan (1) Shortness of breath: Code(s): R06.02 - Shortness of breath Category: Medical (2) Asthma: Code(s): J45.909 - Unspecified asthma, uncomplicated Category: Medical Qualifiers: Asthma severity: moderate Asthma persistence: persistent Asthma complication type: uncomplicated Qualified Code(s): J45.40 - Moderate persistent asthma, uncomplicated (3) Elevated diaphragm: Code(s): J98.6 - Disorders of diaphragm Category: Medical Plan start Wixela TRELL as needed CXR PFTs F/U 2-3 months Orders: Orders XR chest 2V Today J45.909 - Unspecified asthma, uncomplicated, R06.02 - Shortness of breath PFT pulmonary function test Today J45.909 - Unspecified asthma, uncomplicated, R06.02 - Shortness of breath Coding Level of Care Code New Pt Level 4 (23549) Diagnoses Shortness of breath R06.02 Moderate persistent asthma without complication J45.40 Asthma severity: moderate Asthma persistence: persistent Asthma complication type: uncomplicated Elevated diaphragm J98.6 Time Spent (min) 40
[2025-08-13 14:37] VITALS: BP 118/68; PULSE 72; O2SAT 96; BMI 30.1
--- OUTSIDE RECORDS SUMMARY | 2025-08-13 18:21 | XMS_ITS | Encounter Summary ---
Author Organization [facility] Address [address] [place] [address] Phone Care Team Providers Care Infantry Unit Leader Name Role Phone Catrachito Curran DO Primary Care Provider [phone] Encounter Details Date Type Department Care Team (Late st Contact Info) Description 10/10/2019 Procedure Pass OR Admitting Dept - Virtual Department [address] [place] [address] Social History Tobacco Use Types Packs/Day Years [...] on filedocumented in this encounter Care Teams Infantry Unit Leader Relationship Specialty Start Date End Date Catrachito Curran DO [address] [place] [address] PCP - General Internal Medicine 07/07/19 documented as of this encounter Additional Source Comments The information contained in this document represents components of the legal health record. It is not the complete legal health record.[facility]
--- OUTSIDE RECORDS SUMMARY | 2025-08-13 18:22 | XMS_ITS | Encounter Summary ---
Author Organization [facility] Health Address [address] [place] [address] Care Team Providers Care Tube Coater Name Role Phone Unavailable Primary Care Provider Unavailabl e Prior Encounters Date Type Department Care Team Description 01/23/2025 2:00 PM PST Office Visit [facility] [address] [facility] [address] [place] [phone] Kathy Guerrero DMD Dental caries, unspecified (Primary Dx); Encounter for dental examination and cleaning without abnormal findings 01/06/2025 1:30 PM PST Office Visit [facility] [address] [facility] [place] [address] [place] [phone] Garcia Moody DDS 12/10/2024 Orders Only [facility] [address] [facility] [place] [address] [place] [phone] Kathy Guerrero DMD 11/28/2024 2:00 PM PST Office Visit [facility] [address] [facility] [place] [address] [place] [phone] Kathy Guerrero DMD Last Filed Vital Signs [...]
--- OUTSIDE RECORDS SUMMARY | 2025-08-13 18:22 | XMS_ITS | Clinical Summary ---
Author Organization [facility] Address [address] [place] [address] Phone Care Team Providers Care Nutrition Professor Name Role Phone Catrachito Curran DO Primary Care Provider + [phone] Allergies No known active allergies Medications levothyroxine [...] Active vitamins A,C,E-zinc-pop er (PRESERVISION AREDS) 14,320-226-200 nbdt-fq-rxdq Cap Take 1 capsule by mouth 2 [...] 09/27/2024 Active calcium/vit D3/mag/folic ac/K1 ([place] CARBONATE-VIT T3-MPVI-YT-K ORAL) Take 10 mcg by mouth daily. [...] B [place] MEDICARE COMPLEMENT SUPPLEMENT [facility] MED[facility] PART A & B [place] MEDICARE COM[facility] SUPPLEMENT [facility] RE[facility] MEDICARE PART A & B [place] MEDICARE COMPLEMENT SUPPLEMENT [facility] RE[facility]AC[facility] MEDICARE PART A & B [place] MEDICARE COMPLEMENT SUPPLEMENT TNA [facility] MED[facility] REPLACEMENT MEDICARE PART A & B [facility] MEDICARE COMPLEMENT SUPPLEMENT AETNA O MEDICARE REPLACEMENT MEDICARE PART A & B [facility] MEDICARE COMPLEMENT SUPPLEMENT AETNA O MEDICARE REPLACEMENT MEDICARE PART A & B [place] MEDICARE COMPLEMENT SUPPLEMENT [facility] MEDICARE REPLACEMENT MEDICARE PART A & B [place] MEDICARE COMPLEMENT SUPPLEMENT AETNA [facility]PLAC[place] MEDICARE PART A & B Member Subscriber Plan / Payer (Ef fective 2009-Present) Name:Miladis Geller Member ID:[id number] Relation to Subscriber:Self Name:Miladis Geller Subscriber ID:[id number] Payer ID:[id number] Group ID:Not on file Type:Medicare Address: [facility]ENTER[facility]adrille Ingénierie [facility] [address] [place] [phone] [place] MEDICARE COMPLEMENT SUPPLEMENT [facility] MEDICARE REPLACEMENT Advance Directives For more information, please contact: [phone] (9AM - 5PM [facility], Sunday-Sunday) * Full Code (Presumed) (Latest Code Status on File) Date Activated Date Inactivated Comments 10/10/2019 7:44 AM 10/10/2019 1:50 PM * Full Code (Presumed) Date Activated Date Inactivated Comments 09/12/2019 7:33 AM 09/12/2019 4:40 PM Care Teams Nutrition Professor Relationship Specialty Start Date End Date Catrachito Curran DO [address] [place] [address] PCP - General Internal Medicine 07/07/19 Additional Source Comments The information contained in this document represents components of the legal health record. It is not the complete legal health record.[facility]
--- OUTSIDE RECORDS SUMMARY | 2025-08-13 18:22 | XMS_ITS | Clinical Summary ---
Author Organization [facility] Address [address] [place] [address] Care Team Providers Care Toppiece Chopper Name Role Phone Catrachito Curran DO Primary Care Provider + [phone] Allergies Active Allergy Reactions Criticality Noted Date Comments Fluoxetine 08/27/2024 Other reaction(s): fatigue Medications Medication Sig Dispensed Refills Start Date End Date Status atorvastatin (LIPITOR) tablet 40 mg Take 1 tablet (40 mg total) by mouth every evening. 0 11/30/2020 Active Lactobacillus-Inulin ([facility]) CAPS Take 200 mg [...] this topic Medical Devices Implanted Type Area Investigator Device Identifier Shelf Expiration Date Model / Serial / Lot Component Femoral Posterior Stabilized Rt Size 4 Beaded W\Pe - [id number] - [id number] Implanted:Qty: 1 on 01/24/2021 by Daniel Kay MD at [facility] Right: Knee [employer] [id number] 07/19/2024 5516-F-402 / / [id number] Triathlon Tritanium Baseplate Size 5 - [id number] - [id number] Implanted:Qty: 1 on 01/24/2021 by Daniel Kay MD at [facility] Right: Knee [employer] [id number] 10/15/2025 5536-B-500 / / [id number] Insert Triathlon 5 11mm Posterior Stabilized Bearing X3 - [id number] - [id number] Implanted:Qty: 1 on 01/24/2021 by Daniel Kay MD at [facility] Right: Knee [employer] [id number] 11/24/2024 5532-G-[id number] / / [id number] Tritanium Asymmetric Metal Backed Patella 29mm - [id number] - [id number] Implanted:Qty: 1 on 01/24/2021 by Daniel Kay MD at [facility] Right: Knee [employer] [id number] 12/30/2025 5552-L-299 / / [id number] Advance Directives For more information, please contact: [phone] Latest Code Status on File Code Status [...] way: discussion with patient . Care Teams Toppiece Chopper Relationship Specialty Start Date End Date Catrachito Curran DO [address] [place] [phone] PCP - General Internal Medicine 12/30/20
--- OUTSIDE RECORDS SUMMARY | 2025-08-13 18:22 | XMS_ITS | Encounter Summary ---
Author Organization [facility] Address [address] [place] [address] Phone Care Team Providers Care Yard Cleaner Name Role Phone Catrachito Curran DO Primary Care Provider + [phone] Encounter Details Date Type Department Care Team (Late st Contact Info) Description 09/24/2019 Prep for Surgery [facility] Orthopedics & Sports Medicine [address] [place] [address] Wendi Nick MD [address] [place] [address] Orthopedics & Sports Medicine, [facility] [place] [address] [email or web address] Social History Tobacco Use Types Packs/Day Years [...] on filedocumented in this encounter Care Teams Yard Cleaner Relationship Specialty Start Date End Date Catrachito Curran DO [address] [place] [address] PCP - General Internal Medicine 07/07/19 documented as of this encounter Additional Source Comments The information contained in this document represents components of the legal health record. It is not the complete legal health record.[facility]
--- OUTSIDE RECORDS SUMMARY | 2025-08-13 18:22 | XMS_ITS | Encounter Summary ---
Author Organization [facility] Address [address] [place] [address] Phone Care Team Providers Care Plc Engineer Name Role Phone Catrachito Curran DO Primary Care Provider + [phone] Encounter Details Date Type Department Care Team (Late st Contact Info) Description 08/18/2019 Prep for Surgery [facility] Orthopedics & Sports Medicine [address] [place] [address] Wendi Nick MD [address] [place] [address] Orthopedics & Sports Medicine, [place] [address] Social History Tobacco Use Types Packs/Day Years [...] on filedocumented in this encounter Care Teams Plc Engineer Relationship Specialty Start Date End Date Catrachito Curran DO [address] [place] [address] PCP - General Internal Medicine 07/07/19 documented as of this encounter Additional Source Comments The information contained in this document represents components of the legal health record. It is not the complete legal health record.[facility]
--- OUTSIDE RECORDS SUMMARY | 2025-08-13 18:22 | XMS_ITS | Clinical Summary ---
Author Organization [facility] Health Address [address] [place] [address] Care Team Providers Care Cancer Program Coordinator Name Role Phone Unavailable Primary Care Provider [...]
--- OUTSIDE RECORDS SUMMARY | 2025-08-13 18:22 | XMS_ITS | Encounter Summary ---
Author Organization [facility] Address [address] [place] [phone] Phone Care Team Providers Care Ash Conveyor Operator Name Role Phone Catrachito Curran DO Primary Care Provider [phone] Encounter Details Date Type Department Care Team (Late st Contact Info) Description 09/12/2019 Procedure Pass OR Admitting Dept - Virtual Department [address] [place] [phone] Social History Tobacco Use Types Packs/Day Years [...] on filedocumented in this encounter Care Teams Ash Conveyor Operator Relationship Specialty Start Date End Date Catrachito Curran DO [address] [place] [address] PCP - General Internal Medicine 07/07/19 documented as of this encounter Additional Source Comments The information contained in this document represents components of the legal health record. It is not the complete legal health record.[facility]
== END 2025-08-13 15:19 | disposition home or self-care (01) ==
LOC: HO.HPS 13:51
PROVIDERS: PCP Internal Medicine; Visit Provider Hospitalist
DX: R06.02 Shortness of breath (principal); J45.40 Moderate persistent asthma, uncomplicated; J98.6 Disorders of diaphragm
CPT/HCPCS: 99204

== ENCOUNTER → 2025-08-13 15:38 | Outpatient (BNV) | payer MEDICARE, SELFPAY | PROVIDERS: PCP Internal Medicine; Visit Provider Radiology Diagnostic Radiology | DX: R06.02 Shortness of breath (principal) | CPT/HCPCS: 71046 ==

== ENCOUNTER 2025-09-11 13:01 | Outpatient (AMB) | payer MEDICARE, SELFPAY ==
--- OUTSIDE RECORDS SUMMARY | 2024-09-04 13:05 | XMS_ITS | Encounter Summary ---
Author Organization [facility] [place] [address] Care Team Providers Care Hotel Maintenance Technician Name Role Phone Bina Catrachito Primary Care Provider [phone] Encounter Details Date Type Department Care Team (Late st Contact Info) Description 09/04/2024 1:05 PM EDT Hospital Encounter TH HISTORIC ENCOUNTERS EASTERN CONVERSION ONLY Sarah Gonzalez MD [address] [place] [address] Social History Tobacco Use Types Packs/Day Years [...] 09/25/2024 12:52 PM Prisca Lakhani RN * [place] Suicide Severity Rating Scale (Screener/Recent Self-Report) Question [...] 1:59 PM Encounter Date: 09/04/2024 Status: Signed Sharepoint Consultant: Sarah Gonzalez MD (Physician) Cardiology Attending New [...] years old. Her father also of an [place]. She remains reasonably physically active including gardening, goes to [facility] For exercise, twice a week, she [...] PO Take by mouth daily. ? Lactobacillus-Inulin ([facility] [employer]) CAPS Take 200 mg by mouth daily. [...] on filedocumented in this encounter Care Teams Hotel Maintenance Technician Relationship Specialty Start Date End Date Catrachito Curran DO [address] [place] [phone] PCP - General Internal Medicine 12/30/20 documented as of this encounter
--- OUTSIDE RECORDS SUMMARY | 2024-09-15 09:13 | XMS_ITS | Encounter Summary ---
Author Organization [facility] [place] [address] Care Team Providers Care Highway Patrol Pilot Name Role Phone BinaCatrachito varghese Primary Care Provider [phone] Encounter Details Date Type Department Care Team [...] 12:52 PM EST Prisca Yost, RN * [place] Suicide Severity Rating Scale (Screener/Recent Self-Report) Question [...] on filedocumented in this encounter Care Teams Highway Patrol Pilot Relationship Specialty Start Date End Date Catrachito Curran DO [address] [place] [phone] PCP - General Internal Medicine 12/30/20 documented as of this encounter
--- OUTSIDE RECORDS SUMMARY | 2024-09-15 09:13 | XMS_ITS | Encounter Summary ---
Author Organization [facility] [place] [address] Care Team Providers Care Bank Compliance Officer Name Role Phone BinaCatrachito varghese Primary Care Provider [phone] Encounter Details Date Type Department Care Team [...] 12:52 PM EST Prisca Yost RN * [place] Suicide Severity Rating Scale (Screener/Recent Self-Report) Question [...] examination documented in this encounter Care Teams Bank Compliance Officer Relationship Specialty Start Date End Date Catrachito Curran DO [address] [place] [phone] PCP - General Internal Medicine 12/30/20 documented as of this encounter
--- OUTSIDE RECORDS SUMMARY | 2024-09-16 14:24 | XMS_ITS | Encounter Summary ---
Author Organization [facility] [place] [address] Care Team Providers Care Coffee Supervisor Name Role Phone BinaCatrachito varghese Primary Care Provider [phone] Encounter Details Date Type Department Care Team [...] EST Galluc ci, Prisca R, RN * [place] Suicide Severity Rating Scale (Screener/Recent Self-Report) Question [...] on 09/16/2024 3:00 PM. Workstation Name - [id number] Procedure Note Gigi Santamaria MD - 09/20/2024 [...] MD on 43:00 PM. Workstation Name - [id number] Daniel Kay MD IMG CT PROCEDURES Final Result documented in this encounter Visit Diagnoses Diagnosis Unilateral primary osteoarthritis, left knee Pain in left knee documented in this encounter Care Teams Coffee Supervisor Relationship Specialty Start Date End Date Catrachito Curran DO [address] [place] [phone] PCP - General Internal Medicine 12/30/20 documented as of this encounter
--- OUTSIDE RECORDS SUMMARY | 2024-09-22 10:30 | XMS_ITS | Encounter Summary ---
Author Organization [facility] Address [address] [place] [address] Care Team Providers Care Box Office Manager Name Role Phone Catrachito Curran DO Primary Care Provider [phone] Reason for Visit * Auth/Cert Inpatient Observation or Outpatient Surgery Specialty Diagnoses / Procedures Referred By Hugo gil Referred To Contact Diagnoses Degenerative arthritis of left knee Degenerative arthritis of left knee [M17.12] Procedures [place] ARTHRP KNE CONDYLE&PLATU MEDIAL&LAT COMPARTMENTS REPLACEMENT TOTAL KNEE WITH KELLY [facility] [address] [place] [address] Referral ID Status Reason Start Date Expiration Date Visits Re quested Visits Authorized [id number] 1 1 Encounter Details Date Type Department Care Team Description 09/22/2024 9:30 AM EST Hospital Encounter CT Joint Replacement [place] [address] [place] [address] Daniel Kay MD Social History Tobacco Use [...] on filedocumented in this encounter Care Teams Box Office Manager Relationship Specialty Start Date End Date Catrachito Curran DO [address] [place] [phone] PCP - General Internal Medicine 12/30/20 documented as of this encounter
--- NOTE | 2025-09-11 13:52 | MHC.OFFVIS ---
Intake Visit Reasons: Urodynamics Allergies No Known Allergies (No Known Allergies*) Allergy (Verified 08/13/25 14:41) Medication List - Last Reconciled 09/11/25 by Richard Jauregui MD albuterol sulfate 90 mcg/actuation 1 inh inhalation QID PRN alendronate (Fosamax) 70 mg PO QWEEK 3 months atorvastatin 20 mg PO QPM cholecalciferol (vitamin D3) 50 mcg PO DAILY fluticasone propion-salmeterol 250-50 mcg/dose (Wixela Inhub) 1 inh inhalation BID levothyroxine 75 mcg PO QAM 90 days multivitamin (Daily Multi-Vitamin tablet) pt uses Flaviar vitamins 3 PO daily; omeprazole 40 mg PO DAILY trazodone 50 mg PO BEDTIME venlafaxine ER 150 mg (2 x 75 mg) PO DAILY 90 days HPI Comments Details: 09/11/25--status post urodynamics So pamphlet so the test results with Tonya 1 of the things that we noticed was that you do hold a good amount of fluid in the bladder it is not like your just holding a little History of Present Illness The patient is an 80-year-old female presenting with urinary incontinence. She holds a significant amount of fluid in the bladder and experiences episodes of urgency without actual leakage during coughing or sneezing. The incontinence occurs without her awareness, and she has not been on any medication for this condition previously. The patient does not experience significant leakage during physical activities such as coughing or sneezing, but rather involuntary leakage without prior sensation. There is no history of medication use for this condition, and the patient has not been on blood thinners or aspirin. Results Plan 1. Urinary Incontinence - Consideration of a procedure to inject gel into the urethral mucosa to provide additional support and reduce leakage. - The procedure is performed in an ambulatory setting with medication to relax the patient. - Post-procedure, the patient is required to urinate before discharge; if unable, a pediatric catheter may be used temporarily. - Follow-up involves removal of the catheter within one to two days if used. 05/28/25 History of Present Illness - The patient is an 80-year-old female presenting with urinary incontinence. - The urinary incontinence has been ongoing for a few years and has worsened over time. - The patient reports feeling pressure in the bladder leading to leakage. - the patient reports leakage with coughing. - She has been using pads to manage the leakage. - The patient underwent a hysterectomy at age 35, with removal of ovaries, - She has three children, all delivered vaginally. - The patient was prescribed Fosamax for bone health. She states she has not yet started the medication - She denies recent history of UTIs Results - Urinalysis: Blood negative, trace leukocytes, no signs of infection - 05/19/25--abdominal ultrasound: Kidneys visualized and normal Plan - Plan to perform urodynamic testing to evaluate bladder function and muscle strength. - Schedule an ultrasound of the bladder to assess structure and function. [facility] Medical History Elevated diaphragm Osteopenia Obesity (BMI 30-39.9) Asthma History of breast cancer Establishing care with new doctor, encounter for History of smoking Shortness of breath Urinary incontinence Epigastric abdominal pain GERD (gastroesophageal reflux disease) Scoliosis deformity of spine Diaphragm, eventration Dyspnea on exertion History of right breast cancer Arthritis Hypothyroid Depression COPD (chronic obstructive pulmonary disease) Elevated cholesterol Surgical History Hx of arthroscopy of knee History of bunionectomy Hx of hysterectomy Hx of colonoscopy History of lumpectomy of right breast Family History Father Heart attack Mother AD (Alzheimer's disease) Sister Heart attack Social History Housing: House Do you presently have visiting nurse or other home services: No Alcohol intake: current Alcohol intake frequency: does not drink Patient Tobacco Use Status: Former Tobacco user Years Smoked: 31 service: No Current occupational status: retired Cognitive needs: Yes (uses cane when needed) Hearing needs: No Vision needs: Yes (rx glasses) Review of Systems Const All systems reviewed & are unremarkable except as noted in HPI and below Reports no additional complaints Eyes Reports no additional complaints ENT Reports no additional complaints Card Reports no additional complaints Resp Reports no additional complaints GI Reports no additional complaints Reports as per HPI Musc Reports no additional complaints Skin/Breast Reports system reviewed and no additional complaints, except as documented Neuro Reports no additional complaints Psych Reports no additional complaints Endo Reports no additional complaints Davey/Lymph Reports no additional complaints Aller/Immun Reports no additional complaints Office Procedures Urodynamic Studies Consent Discussed risk and benefit or proposed procedure with the patient. Information consent for procedure given to the patient. Discussed technical aspects, risks, benefits and alternatives in full. Addressed all of the patient's questions and concerns regarding the procedure. The patient demonstrated knowledge and understanding. They wish to proceed with this procedure. Preparation The patient was prepped in the usual manner. A lottery sales clerk was present and in the room. Genitalia was prepped with betadine solution in a sterile manner. Procedure Complex Uroflow Complex uroflow performed by: Richard Jauregui Maximum urinary flow rate (mL/second): 12 Voiding time (seconds): 25 seconds Voided volume (mL): 95ml Residual urine (mL): 10ml Cystometrogram ? Vaginal/rectal catheter type: Vaginal First sensation at (mL): 63mL First desire at (mL): 211 mL Strong desire to void occurred at (mL): 268mL Strong desire detrusor pressure (cm H2O): 2.8 Maximum Capacity (mL): 438 mL Voiding Summary Voided with max detrusor pressure of (cm H2O): 90 Maximum flow rate (mL/second): 15 mL/s Voided volume (mL): ? 433ml Calculated PVR: 0 mL Stress Testing Stress Test at 237 mL: Absent leak with Valsalva, Absent leak with cough (Pt reported sensory leak with cough, but no leak visualized) Stress Test at 400 mL: Absent leak with Valsalva, Absent leak with cough (Pt reported sensory leak with cough, but no leak visualized) DO Dry: Absent DO Wet:Absent Patient reported intermittent urgency throughout test, without any DO noted. Prep: The patient was prepped in the usual manner. A lottery sales clerk was present and in the room. Genitalia was prepped with betadine solution in a sterile manner. 25991-Hbpcbquwxfldfv w/ FORM PRESS OPERATOR 98975-Gbwjhns-Ipnngbvhdryz 26554-Ihqb/Urinary Muscle Study 80994-Kktxs-Bxutbqnny Pressure Test Procedure code (CPT) selection complete Office Meds nitrofurantoin monohydrate/macrocrystals 100 mg capsule Performing Provider: Richard Jauregui MD Performing Location: [facility] Administered by: Lena Hoskins RN on 09/11/25 13:52 Dose Route Admin Location Dispensed Lot Number Expiration Date NDC Distribution Operations Manager 100 mg PO 1 cap Results AMB Urinalysis, Automated UA Leukoctes 0 Shelley/uL Last Edit by Lena Hoskins RN on 09/11/25 13:59 UA Nitrite Negative Last Edit by Lena Hoskins RN on 09/11/25 13:59 UA Urobilinogen 0.2 mg/dL Last Edit by Lena Hoskins RN on 09/11/25 13:59 UA Protein 0 mg/dL Last Edit by Lena Hoskins RN on 09/11/25 13:59 UA pH 6.0 Last Edit by Lena Hoskins RN on 09/11/25 13:59 UA Blood 0 Dandre/uL Last Edit by Lena Hoskins RN on 09/11/25 13:59 UA Specific [place] 1.0 Last Edit by Lena Hoskins RN on 09/11/25 13:59 UA Ketone Negative Last Edit by Lena Hoskins RN on 09/11/25 13:59 UA Bilirubin 0 mg/dL Last Edit by Lena Hoskins RN on 09/11/25 13:59 UA Glucose 0 mg/dL Last Edit by Lena Hoskins RN on 09/11/25 13:59 Results Reviewed Results Reviewed: Laboratory Last Values Urine pH (Auto) 6.0 09/11/25 13:52 Specific [place] (Auto) 1.0 09/11/25 13:52 Urine Protein (Auto) 0 mg/dL 09/11/25 13:52 Glucose (UA)(Auto) 0 mg/dL 09/11/25 13:52 Urine Ketones (Auto) Negative 09/11/25 13:52 Urine Blood (Auto) 0 Dandre/uL 09/11/25 13:52 Urine Nitrite (Auto) Negative 09/11/25 13:52 Urine Bilirubin (Auto) 0 mg/dL 09/11/25 13:52 Urine Urobilinogen (Auto) 0.2 mg/dL 09/11/25 13:52 Leukocyte Esterase (Auto) 0 Shelley/uL 09/11/25 13:52 Assessment & Plan Assessment & Plan (1) Urinary incontinence: Code(s): R32 - Unspecified urinary incontinence Category: Medical Plan: The patient is scheduled for a urologist follow-up and a bladder ultrasound. (2) KATIUSKA (stress urinary incontinence, female): Code(s): N39.3 - Stress incontinence (female) (male) Category: Medical (3) Osteopenia: Code(s): M85.80 - Other specified disorders of bone density and structure, unspecified site Category: Medical Plan: The patient is advised to continue Fosamax and monitor bone density regularly. (4) GERD (gastroesophageal reflux disease): Code(s): K21.9 - Gastro-esophageal reflux disease without esophagitis Category: Medical Plan: The patient should continue monitoring GERD symptoms and adjust omeprazole as needed. (5) History of smoking: Code(s): Z87.891 - Personal history of nicotine dependence Category: Social Hx Plan: The patient will use an inhaler for symptomatic relief until her pulmonology appointment. Plan Plan Patient was informed and verbally consented to the use of an ambient scribe for clinic note documentation during this visit. 1. Osteopenia The patient is advised to continue Fosamax and monitor bone density regularly. 2. Gastroesophageal Reflux Disease (Gerd) The patient should continue monitoring GERD symptoms and adjust omeprazole as needed. 3. Urinary Incontinence The patient is scheduled for a urologist follow-up and a bladder ultrasound. 4. Respiratory Issues The patient will use an albuterol inhaler as a rescue inhaler and Wixela inhaler for symptomatic relief until her pulmonology appointment for possible undiagnosed COPD due to history of smoking many years ago. I discussed with the patient the management of her osteopenia with Fulsamax and the importance of regular monitoring. We reviewed her GERD management, advising her to monitor symptoms and adjust omeprazole as needed. We planned for a urologist follow-up and bladder ultrasound to evaluate urinary incontinence. I provided an inhaler for her respiratory issues to use until her pulmonology appointment. Orders: Orders AMB Urodynamics Studies Today N39.3 - Stress incontinence (female) (male), R32 - Unspecified urinary incontinence AMB Urinalysis Automated Today Z13.9 - Encounter for screening, unspecified Scribe Plan - Not visible on output: Patient was informed and verbally consented to the use of an ambient scribe for clinic note documentation during this visit. Coding Diagnoses Urinary incontinence R32 KATIUSKA (stress urinary incontinence, female) N39.3 Osteopenia M85.80 GERD (gastroesophageal reflux disease) K21.9 History of smoking Z87.891 CPT Codes Urodynamic Studies - CPT: 90213-Ojljvasgsuoqxc w/ FORM PRESS OPERATOR ([id number]) Urodynamic Studies - CPT: 44356-Gumftwq-Cwpgmdjtipup ([id number]) Urodynamic Studies - CPT: 10510-Qbbh/Urinary Muscle Study ([id number]) Urodynamic Studies - CPT: 48413-Nmper-Hgsqzemqi Pressure Test ([id number])
--- OUTSIDE RECORDS SUMMARY | 2025-09-11 15:03 | XMS_ITS | Encounter Summary ---
Author Organization [facility] Address [address] [place] [address] Phone Care Team Providers Care Conceptor Name Role Phone Catrachito Curran DO Primary Care Provider [phone] Encounter Details Date Type Department Care Team (Late st Contact Info) Description 10/10/2019 Procedure Pass OR Admitting Dept - Virtual Department [address] [place] [phone] Social History Tobacco Use Types Packs/Day Years [...] on filedocumented in this encounter Care Teams Conceptor Relationship Specialty Start Date End Date Catrachito Curran DO [address] [place] [address] PCP - General Internal Medicine 07/07/19 documented as of this encounter Additional Source Comments The information contained in this document represents components of the legal health record. It is not the complete legal health record.[facility]
--- OUTSIDE RECORDS SUMMARY | 2025-09-11 15:03 | XMS_ITS | Encounter Summary ---
Author Organization [facility] Address [address] [place] [address] Phone Care Team Providers Care Manager Meeting Name Role Phone Catrachito Curran DO Primary Care Provider [phone] Encounter Details Date Type Department Care Team (Late st Contact Info) Description 09/12/2019 Procedure Pass OR Admitting Dept - Virtual Department [address] [place] [phone] Social History Tobacco Use Types Packs/Day Years [...] on filedocumented in this encounter Care Teams Manager Meeting Relationship Specialty Start Date End Date Catrachito Curran DO [address] [place] [address] PCP - General Internal Medicine 07/07/19 documented as of this encounter Additional Source Comments The information contained in this document represents components of the legal health record. It is not the complete legal health record.[facility]
--- OUTSIDE RECORDS SUMMARY | 2025-09-11 15:03 | XMS_ITS | Encounter Summary ---
Author Organization [facility] Address [address] [place] [address] Phone Care Team Providers Care Store Sales Leader Name Role Phone Catrachito Curran DO Primary Care Provider [phone] Encounter Details Date Type Department Care Team (Late st Contact Info) Description 09/24/2019 Prep for Surgery [facility] Orthopedics & [facility] Medicine [address] [place] [address] Wendi Nick MD [address] [place] [address] Orthopedics & Sports Medicine, [facility] [place] [address] [email or web address] Social History Tobacco Use Types Packs/Day Years [...] on filedocumented in this encounter Care Teams Store Sales Leader Relationship Specialty Start Date End Date Catrachito Curran DO [address] [place] [address] PCP - General Internal Medicine 07/07/19 documented as of this encounter Additional Source Comments The information contained in this document represents components of the legal health record. It is not the complete legal health record.[facility]
--- OUTSIDE RECORDS SUMMARY | 2025-09-11 15:03 | XMS_ITS | Data Portability ---
Author Organization [facility] Address [address] [address] Assessment Encounter Date Assessment Date Assessment LastModified [...] Star Gibson MD [address], [place], [address], [place] - Comp-Assistd and Rcnstrctive Surgry 12/20/2020 11:44:35 Unlisted procedure breast completed Star Gibson MD [address], [place], [address], [place] Comp-Assistd and Rcnstrctive Surgry 12/20/2020 11:44:52 excision of bunion completed Star Gibson MD [address], [place], [address], [place] Comp-Assistd and Rcnstrctive Surgry 12/20/2020 11:45:07 Knee arthroscopy/surge ry completed Star Gibson MD [address], [place], [address], [place] Comp-Assistd and Rcnstrctive Surgry 12/20/2020 [...] Updated DateTime 12/20/2020 163.83 cm 29.1 kg/m2 28121.89 g Star Gibson MD [address] [facility] [address], [place], [address], [place] - Comp-Assistd and Rcnstrctive Surgry 12/20/2020 11:38:49 [...] Thyroid Problems Y Anemia N Heart Attack (NC) N Ulcers N Diabetes N Bleeding Disorder N Seizures/Epilepsy N Tuberculosis N AIDS/HIV N Asthma N Peripheral Vascular Disease N Hepatitis N Pulmonary Embolism N Hypertension N Osteoporosis N Gynecological HistoryNo gynecological history recorded. Obstetrics History GPAL:G 0 P 0 0 0 0 Past Encounters Encounter ID Performer Location Encounter Start Date Encounter Closed Date Diagnosis/Indication Diagnosis SNOMED-CT Code Diagnosis ICD10 Code Diagnosis IMO Codes Diagnosis Note [id number] Star Gibson MD [facility] [address] [place] [address] 12/20/2020 08:07:36 12/20/2020 12:46:21 Health Concerns Section Related Observation LastModified by Organization Detai ls LastModified Time None Recorded Concern Status LastModified by Organization Details LastModified Time None Recorded Advance Directives Directive None Recorded Payers Insurance Date Sequence Insurance Name Policy Number Policy Degroot Covered Member ID Degroot Member ID Guarantor Name 12/20/2020 1 [employer] (MEDICARE REPLACEMENT/ ADVANTAGE - PPO) [id number] Miladis Geller [id number] Miladis Geller Notes Date Note Type Note Provider Name and Address Organization Details Recorded Time 12/20/2020 text/html KneeReported by PatientHPIFor location, patient reportsright. For alleviating factors, patient reportsrestandstret hui. For aggravating factors, patient reportswalking,vitaliy g from sit to stand,upstairs, anddownstairs. For associated symptoms, patient reportsno weakness,no numbness,no tingling,no swelling,no redness,no warmth,no ecchymosis,no catching/locking,no popping/clicking,no buckling,no grinding,no instability,no radiation down leg,no drainage,no fever,no chills,no weight loss, andno change in bowel/bladder habits. For prior imaging, patient reportsx ray. For previous injections, patient reportsdid not help. For severity, (mild as a baseline but wakes up at night sometimes. the biggest problem is the functional limitation of the flexion contracture.).ROS as noted in the HPI Star Gibson MD [address] [place] [address],[facility] [address], [place], [address], [place] - Comp-Assistd and Rcnstrctive Surgry 12/20/2020 11:49:35 OBGyn Episode No OBEpisode recorded.
--- OUTSIDE RECORDS SUMMARY | 2025-09-11 15:03 | XMS_ITS | Encounter Summary ---
Author Organization [facility] Address [address] [place] [address] Care Team Providers Care Software Systems Engineer Name Role Phone Unavailable Primary Care Provider Unavailabl e Prior Encounters Date Type Department Care Team Description 01/23/2025 2:00 PM PST Office Visit [facility] [address] [facility] [address] [place] [phone] Kathy Guerrero DMD Dental caries, unspecified (Primary Dx); Encounter for dental examination and cleaning without abnormal findings 01/06/2025 1:30 PM PST Office Visit [facility] [address] [facility] [address] [place] [phone] Garcia Moody DDS 12/10/2024 Orders Only [facility] [address] [facility] [address] [place] [phone] Kathy Guerrero DMD 11/28/2024 2:00 PM PST Office Visit [facility] [address] [facility] [address] [place] [phone] Kathy Guerrero DMD Last Filed Vital Signs [...]
--- OUTSIDE RECORDS SUMMARY | 2025-09-11 15:03 | XMS_ITS | Clinical Summary ---
Author Organization [facility] Address [address] [place] [address] Phone Care Team Providers Care Single Pointed Operator Name Role Phone BinaCatrachito varghese Primary Care Provider [phone] Allergies Active Allergy Reactions Criticality Noted Date [...] (one) time each day. 07/29/2019 Active vitamins A,C,K-gcnh-owtrs r (PreserVision AREDS) 4,296 mcg-226 mg-90 mg [...] 2024 COPD (chronic obstructive pu lmonary disease) ([facility] [place] [place] V24, [facility] [place] V28) 03/20/2025 Encounters Date Type Department Care Team Description 06/16/2025 Telephone [facility] [place] [address] [address] Stephanie Landis MA from Last 3 Months Immunizations Immunization Administration Dates Next Due Moderna SARS-CoV-2 COVID-19, mRNA, LNP-S, preservative free 03/31/2022,09/27/2021 Pfizer SARS-CoV-2 COVID-19, mRNA, LNP-S, preservative free 02/08/2021,12/23/2020 Surgical History Surgery Date Site/Laterality Comments BREAST LUMPECTOMY COLONOSCOPY BUNIONECTOMY HYSTERECTOMY KNEE ARTHROSCOPY Right KNEE ARTHROPLASTY 11/19/2020 - 11/18/2021 Right TRIGGER FINGER RELEASE Medical History Medical History Date Comments Cancer ([facility] [place] [place] V24, [facility] [place] V28) 2011 RT BREAST- MELISSA AND RAD [place] COPD (chronic obstructive pu lmonary disease) ([facility] [place] V24, [facility] [place] V28) DVT (deep venous thrombosis) ([facility] [place] V24, [facility] [place] V28) COUMADIN [place] Depression Shortness of breath [...] this topic Medical Devices Implanted Type Area Escort Service Attendant Device Identifier Shelf Expiration Date Model / Serial / Lot Knee Insrt Cs X3 Sz4 11mm - [id number] Implanted:Qty: 1 on 09/24/2024 by Daniel Kay MD at [facility] Knee Left: Knee [employer] [id number] 05/06/2029 5531-G-41 1 / / [id number] Knee Bsplt Triathlon Ti Sz 4 - [id number] Implanted:Qty: 1 on 09/24/2024 by Daniel Kay MD at [facility] Knee Left: Knee [employer] [id number] 07/02/2029 5536-B-40 0 / / [id number] Knee Fem Bsplt Beaded W/Pa Sz4 L - [id number] Implanted:Qty: 1 on 09/24/2024 by Daniel Kay MD at [facility] Knee Left: Knee [employer] [id number] 07/31/2029 5517-F-40 1 / / [id number] Knee Ptla Asym Tritanium 29x9 - [id number] Implanted:Qty: 1 on 09/24/2024 by Daniel Kay MD at [facility] Knee Left: Knee [employer] [id number] 06/26/2029 5552-L-29 9 / / [id number] Component Femoral Posterior Stabilized Rt Size 4 Beaded W\Pe - [id number] Implanted:Qty: 1 on 01/24/2021 by Daniel Kay MD Right: Knee [employer] [id number] 07/19/2024 5516-F-40 2 / / [id number] Triathlon Tritanium Baseplate Size 5 - [id number] Implanted:Qty: 1 on 01/24/2021 by Daniel Kay MD Right: Knee [employer] [id number] 10/15/2025 5536-B-50 0 / / [id number] Insert Triathlon 5 11mm Posterior Stabilized Bearing X3 - [id number] Implanted:Qty: 1 on 01/24/2021 by Daniel Kay MD Right: Knee [employer] [id number] 11/24/2024 5532-G-51 1 / / [id number] Tritanium Asymmetric Metal Backed Patella 29mm - [id number] Implanted:Qty: 1 on 01/24/2021 by Daniel Kay MD Right: Knee [employer] [id number] 12/30/2025 5552-L-29 9 / / [id number] Procedures Procedure Name Priority Date/Time Associated Diagnosis Comments ANNUAL BMP BLOOD TEST Routine 09/10/2024 from Last 3 Months or Most Recently Relevant to Health Maintenance Results * Annual BMP Blood Test (09/10/2024) Annual BMP Blood Test abstracted Historical Provider MD HEALTH MAINTENANCE Final Result from Last 3 [...] currently active code status orders. Care Teams Single Pointed Operator Relationship Specialty Start Date End Date Catrachito Curran DO [address] [place] [phone] PCP - General Internal Medicine 12/30/20
--- OUTSIDE RECORDS SUMMARY | 2025-09-11 15:03 | XMS_ITS | Encounter Summary ---
Author Organization [facility] Address [address] [place] [address] Phone Care Team Providers Care Tooth Polisher Name Role Phone Catrachito Curran DO Primary Care Provider + [phone] Encounter Details Date Type Department Care Team (Late st Contact Info) Description 08/18/2019 Prep for Surgery [facility] Orthopedics & Sports Medicine [address] [place] [address] Wendi Nick MD [address] [place] [address] Orthopedics & Sports Medicine, [facility] [place] [address] Social History Tobacco Use Types Packs/Day Years [...] on filedocumented in this encounter Care Teams Tooth Polisher Relationship Specialty Start Date End Date Catrachito Curran DO [address] [place] [address] PCP - General Internal Medicine 07/07/19 documented as of this encounter Additional Source Comments The information contained in this document represents components of the legal health record. It is not the complete legal health record.[facility]
--- OUTSIDE RECORDS SUMMARY | 2025-09-11 15:03 | XMS_ITS | Clinical Summary ---
Author Organization [facility] Address [address] [place] [address] Care Team Providers Care Author Agent Name Role Phone Catrachito Curran DO Primary Care Provider + [phone] Allergies Active Allergy Reactions Criticality Noted Date Comments Fluoxetine 08/27/2024 Other reaction(s): fatigue Medications Medication Sig Dispensed Refills Start Date End Date Status atorvastatin (LIPITOR) tablet 40 mg Take 1 tablet (40 mg total) by mouth every evening. 0 11/30/2020 Active Lactobacillus-Inulin ([facility]) CAPS Take 200 mg [...] this topic Medical Devices Implanted Type Area Galley Worker Device Identifier Shelf Expiration Date Model / Serial / Lot Component Femoral Posterior Stabilized Rt Size 4 Beaded W\Pe - [id number] - [id number] Implanted:Qty: 1 on 01/24/2021 by Daniel Kay MD at [facility] and [facility] Right: Knee [employer] [id number] 07/19/2024 5516-F-402 / / [id number] Triathlon Tritanium Baseplate Size 5 - [id number] - [id number] Implanted:Qty: 1 on 01/24/2021 by Daniel Kay MD at [facility] and [facility] Right: Knee [employer] [id number] 10/15/2025 5536-B-500 / / [id number] Insert Triathlon 5 11mm Posterior Stabilized Bearing X3 - [id number] - [id number] Implanted:Qty: 1 on 01/24/2021 by Daniel Kay MD at [facility] and [facility] Right: Knee [employer] [id number] 11/24/2024 5532-G-511 / / [id number] Tritanium Asymmetric Metal Backed Patella 29mm - [id number] - [id number] Implanted:Qty: 1 on 01/24/2021 by Daniel Kay MD at [facility] and [facility] Right: Knee [employer] [id number] 12/30/2025 5552-L-299 / / [id number] Advance Directives For more information, please contact: [phone] Latest Code Status on File Code Status [...] way: discussion with patient . Care Teams Author Agent Relationship Specialty Start Date End Date Catrachito Curran DO [address] [place] [phone] PCP - General Internal Medicine 12/30/20
--- OUTSIDE RECORDS SUMMARY | 2025-09-11 15:03 | XMS_ITS | Clinical Summary ---
Author Organization [facility] Address [address] [place] [address] Phone Care Team Providers Care Special Effects Designer Name Role Phone Catrachito Curran DO Primary Care Provider + [phone] Allergies No known active allergies Medications levothyroxine [...] Active vitamins A,C,E-zinc-pop er (PRESERVISION AREDS) 14,320-226-200 zgmy-de-wmie Cap Take 1 capsule by mouth 2 [...] 09/27/2024 Active calcium/vit D3/mag/folic ac/K1 ([place] CARBONATE-VIT Q4-MMUC-RP-K ORAL) Take 10 mcg by mouth daily. [...] A & B [place] MEDICARE COM[facility]MENT [facility]MENT [facility] MEDICARE PART A & B [place] MED[place]ARE COMPLE[place] [facility]LEMENT [facility] RE[facility] MEDICARE PART A & B [place] MEDICARE COMPLEMENT SUPPLEMENT AETNA [facility] MEDICARE REPLACEMENT MEDICARE PART A & B [place] MED[place]ARE COMPLEMENT SUPPLEMENT T[facility] MEDICARE REPLACEMENT MEDICARE PART A & B [facility] MEDICARE COMPLEMENT SUPPLEMENT AETNA O MEDICARE REPLACEMENT MEDICARE PART A & B [facility] MEDICARE COMPLEMENT SUPPLEMENT AETNA O MEDICARE REPLACEMENT MEDICARE PART A & B [place] MED[place]ARE COMPLEMENT SUPPLEMENT [facility] MEDICARE REPLACEMENT MEDICARE PART A & B [place] MEDICARE COMPLEMENT SUPPLEMENT AETNA [facility] MEDICARE REPLACEMENT MEDICARE PART A & B Member Subscriber Plan / Payer (Ef fective 2009-Present) Name:Miladis Geller Member ID:[id number] Relation to Subscriber:Self Name:Miladis Geller Subscriber ID:[id number] Payer ID:[id number] Group ID:Not on file Type:Medicare Address: [facility] [employer] [facility] [address] [place] [phone] [place] MEDICARE COMPLEMENT SUPPLEMENT [facility] MEDICARE REPLACEMENT Advance Directives For more information, please contact: [phone] (9AM - 5PM [facility], Sunday-Sunday) * Full Code (Presumed) (Latest Code Status on File) Date Activated Date Inactivated Comments 10/10/2019 7:44 AM 10/10/2019 1:50 PM * Full Code (Presumed) Date Activated Date Inactivated Comments 09/12/2019 7:33 AM 09/12/2019 4:40 PM Care Teams Special Effects Designer Relationship Specialty Start Date End Date Catrachito Curran DO [address] [place] [address] PCP - General Internal Medicine 07/07/19 Additional Source Comments The information contained in this document represents components of the legal health record. It is not the complete legal health record.[facility]
--- OUTSIDE RECORDS SUMMARY | 2025-09-11 15:03 | XMS_ITS | Data Portability ---
Author Organization [facility] [address] Address [address] [place] [address] Care Team Providers Care Firestopper Technician Name Role Phone TAD ALEXANDER Primary Care Provider [phone] Assessment No assessment recorded. Plan of Treatment Reminders Order Date Submit Date Provider Last Modified By Organization Details Last Modified Time Details Appointments None recorded. Lab microorgani sm identificat ion, unspecified specimen 2022 023 BUCKNER [facility], [address] [place] [address], [place], [address], 16:06:56 Referral None recorded. Procedures None recorded. Surgeries None recorded. Imaging None recorded. Medication Orders doxycycline hyclate 100 mg capsule 2022 023 [email or web address] [id number], [address] [place], [address], 16:19:45 Patient TargetsNo targets recorded. Patient Instructions Encounter Date Encounter Id Patient Instructions Last Modified By Organization Details Last Modified Time 03/18/2023 [id number] Ticks are small spider-like animals. They bite [...] the ice and your skin. Try an snfa-dsl-nrsdnjd medicine to relieve itching, redness, swelling, and [...] possible. Slowly pull the tick straight out d o not twist or yank u ntil its mouth releases from your [...] your doctor if you can take an vigd-eww-psydsoz medicine. Keep your bandage clean and dry. [...] wound closes. Not available 03/18/2023 16:15:19 03/22/2023 [id number] A skin abscess i s a bacterial [...] your doctor if you can take an jour-czf-mcyklej medicine. Keep your bandage clean and dry. [...] bacterial culture FINAL REPORT Not Available [facility] ([facility]) [address] [place], [address], 03/20/2023 16:06:56 03/18/2003/20/2023 AEROB IC BACTE RIAL CULTU RE result 1 MIXED SKIN KRISTEN Not Available [facility] ([facility]) [address] [place], [address], 03/20/2023 16:06:56 Result Notes None recorded. Problems Name Problem SNOMED Code Status Onset Date Resolution Date Notes Provider Name and Address Organization Details Recorded Time Hypothyroidism 51763593 Active 2022 [facility] 14:46:32 Hypercholestero lemia 20053103 Active 2022 [facility] 14:46:38 Depressive disorder 09007702 Active 2022 Fanta mendes [place] - [facility] 14:46:43 Problem Notes None recorded. Procedures Surgical History Date Name Laterality Status Provider Name and Address Organization Details Recorded Time 3 Wound Dressing completed Cassius Schwartz NP [address] [facility] [address], [place], [address], [place] - [facility] 03/22/2023 08:47:17 3 I&D, with Packing completed Cassius Schwartz NP [address], [place], [address], [place] - [facility] 03/18/2023 16:13:53 Knee [...] and Address Organization Details Last Updated DateTime 162.56 cm 29.2 kg/m2 56243.7 g 100 % 100 % 6 20 /min 97.9 [degF] 52 /min 119/67 mm[Hg] Fanta Florence PA - [facility] 14:49:35 Date Recorded Body height Body mass index (BMI) Body weight Pain severity - 0-10 verbal numeric rating [Score] - Reported Respiratory rate Heart rate Oxygen saturation Oxygen saturation in Arterial blood by Pulse oximetry Body temperature Systolic And Diastolic Provider Name and Address Organization Details Last Updated DateTime 162.56 cm 29.2 kg/m2 88368.7 g 0 20 /min 74 /min 96 % 96 % 97.8 [degF] 137/72 mm[Hg] Fanta Florence PA - [facility] 3 08:19:42 Social History Question Answer Notes LastModified by [employer] Details LastModified Time Tobacco Smoking Status Never Smoker Fanta mendes PA - [facility] 03/18/2023 14:46:59 Have You Had Direct Contact, Or Contact During Intimacy, With Monkeypox Rash, Scabs, Or Body Fluids From A Person With Monkeypox? No Information not available 03/18/2023 Have You Recently Traveled Abroad? No Information not available 03/18/2023 Sex: Unknown Functional Status Question Answer Note LastModified by Organizat ion Details LastModified Time Do you use any [...] or 50 mcg/0.25mL dose 03/31/2022 completed Fanta Lonepine null, [place] - [facility] 03/18/2023 14:45:28 COVID-19, mRNA, LNP-S, PF, 100 mcg/0.5mL dose or 50 mcg/0.25mL dose 09/27/2021 completed Fanta Naman null, [place] - [facility] 03/18/2023 14:45:28 COVID-19, mRNA, LNP-S, PF, 30 mcg/0.3 mL dose 12/23/2020 completed Fanta Lonepine null, [place] - [facility] 03/18/2023 14:45:28 COVID-19, mRNA, LNP-S, PF, 30 mcg/0.3 mL dose 02/08/2021 completed Fanta Lonepine null, [place] - [facility] 03/18/2023 14:45:28 Past Encounters Encounter ID Performer Location Encounter Start Date Encounter Closed Date Diagnosis/Indication Diagnosis SNOMED-CT Code Diagnosis ICD10 Code Diagnosis IMO Codes Diagnosis Note [id number] [address] [place] [address] 08/18/2019 10:09:44 08/18/2019 11:00:54 [id number] Cassius Schwartz NP [address] [place] [address] 03/18/2023 14:13:36 03/18/2023 16:18:52 Abscess of skin of left shoulder 5969829251 8601111 L02.414 Tick bite 55431992 W57.X XXA Puncture w ound of abdomen 858781349 S31.134A [id number] Cassius Schwartz NP [address] [place] [address] 03/22/2023 08:06:13 03/22/2023 08:50:44 Abscess of shoulder 98715475 L02.419 Continue antibiotic s as prescribed . [...] B-[place]: [employer] Miladis E Duyen [id number] Miladis [place] 03/18/2023 2 [facility] PLAN - PREFERRED (MEDICARE SUPPLEMENT) [id number] Miladis Duyen [id number] Miladis Duy[place] 03/18/2023 2 [employer]ETNA (MEDICARE REPLACEMENT/ ADVANTAGE - PPO) [id number] Miladis E [place] [employer] Miladis [place] 03/22/2023 [facility] - SPECIALITY CLAIMS (MEDICARE DME REGION A) Miladis E [place] [id number] Miladis [place] 03/22/2023 1 [employer]ETNA (MEDICARE REPLACEMENT/ ADVANTAGE - PPO) [id number] Miladis E [place] [id number] Miladis Duyen Notes Date Note Type Note Provider Name and Address Organization Details Recorded Time 03/18/2023 text/html AbscessReported by PatientHPIFor quality, patient reportspainful,tenderne ss,swelling, andrednessbut reportsno warmthandno drainage. For context, patient reportsobeseandcellulit is. For location, patient reportsneckandback. For onset/timing, patient reportssudden. For duration, patient reportsdate of onset 03/08/2023. For severity, patient reportsworsening. For associated symptoms, patient reportsno fever,no red streaking,no chills,no malaise,no headache, andno enlarged lymph nodes.4-5 cm left shoulder blade abscess , erythematous and tender to palpation. Cassius Schwartz NP [address] [place], [address], [place] - [facility] 03/18/2023 16:20:17 03/22/2023 text/html AbscessReported by PatientHPIFor quality, patient reportspainful,tenderne ss,swelling,redness, anddrainagebut reportsno warmth. For context, patient reportsobeseandcellulit is. For location, patient reportsneckandback. For onset/timing, patient reportssudden(follow up visit after incision and drainage of left shoulder blade abscess.). For duration, patient reportsdate of onset 03/08/2023. For severity, patient reportsimproving. For associated symptoms, patient reportsno fever,no red streaking,no chills,no malaise,no headache, andno enlarged lymph nodes.4-5 cm left shoulder blade abscess , erythematous and tender to palpation. Cassius Schwartz NP [address] [place], [address], [place] - [facility] 03/22/2023 08:48:31 OBGyn Episode No OBEpisode recorded.
--- OUTSIDE RECORDS SUMMARY | 2025-09-11 15:03 | XMS_ITS | Clinical Summary ---
Author Organization [facility] Address [address] [place] [address] Care Team Providers Care Human Resources Hr Representative Name Role Phone Unavailable Primary Care Provider [...]
== END 2025-09-11 14:36 | disposition home or self-care (01) ==
LOC: HO.HUSH 13:02
PROVIDERS: PCP Internal Medicine; Visit Provider Urology
DX: N39.3 Stress incontinence (female) (male) (principal)
CPT/HCPCS: 51728; 51741; 51784; 51797

== ENCOUNTER → 2025-09-11 13:01 | Outpatient (BNVA) | payer MEDICARE, SELFPAY | PROVIDERS: PCP Internal Medicine; Visit Provider Urology | DX: N39.3 Stress incontinence (female) (male) (principal); M85.80 Other specified disorders of bone density and structure, unspecified site; K21.9 Gastro-esophageal reflux disease without esophagitis; Z87.891 Personal history of nicotine dependence | CPT/HCPCS: 51728; 51741; 51784; 51797; 81003 ==

== ENCOUNTER 2025-10-20 07:33 | Day surgery (SDC) | payer MEDICARE, SELFPAY ==
--- OUTSIDE RECORDS SUMMARY | 2024-09-04 12:05 | XMS_ITS | Encounter Summary ---
Author Organization [facility] [place] [address] Care Team Providers Care Charge Operator Name Role Phone Bina Catrachito Primary Care Provider [phone] Encounter Details Date Type Department Care Team (Late st Contact Info) Description 09/04/2024 1:05 PM EDT Hospital Encounter TH HISTORIC ENCOUNTERS EASTERN CONVERSION ONLY Sarah Gonzalez MD [address] [place] [address] Social History Tobacco Use Types Packs/Day Years [...] 09/25/2024 12:52 PM Prisca Lakhani RN * [place] Suicide Severity Rating Scale (Screener/Recent Self-Report) Question [...] 1:59 PM Encounter Date: 09/04/2024 Status: Signed Open Hearth Furnace Operator: Sarah Gonzalez MD (Physician) Cardiology Attending New [...] years old. Her father also of an [place]. She remains reasonably physically active including gardening, goes to [facility] For exercise, twice a week, she [...] PO Take by mouth daily. ? Lactobacillus-Inulin ([facility] [employer]) CAPS Take 200 mg by mouth daily. [...] on filedocumented in this encounter Care Teams Charge Operator Relationship Specialty Start Date End Date Catrachito Curran DO [address] [place] [phone] PCP - General Internal Medicine 12/30/20 documented as of this encounter
--- OUTSIDE RECORDS SUMMARY | 2024-09-15 08:13 | XMS_ITS | Encounter Summary ---
Author Organization [facility] [address] [place] [address] Care Team Providers Care Dock Superintendent Name Role Phone BinaCatrachito varghese Primary Care Provider [phone] Encounter Details Date Type Department Care Team [...] 12:52 PM EST Prisca Yost RN * [place] Suicide Severity Rating Scale (Screener/Recent Self-Report) Question [...] study for cardiac events. 8 us Sarah Gonzalez MD CV HISTORICAL CONV PROCE DURKENYA Final Result documented in this encounter Visit Diagnoses Diagnosis Encounter for other preprocedural examination documented in this encounter Care Teams Dock Superintendent Relationship Specialty Start Date End Date Catrachito Curran DO [address] [place] [phone] PCP - General Internal Medicine 12/30/20 documented as of this encounter
--- OUTSIDE RECORDS SUMMARY | 2024-09-15 08:13 | XMS_ITS | Encounter Summary ---
Author Organization [facility] [place] [address] Care Team Providers Care Implementation Specialist Payroll Name Role Phone BinaCatrachito varghese Primary Care Provider [phone] Encounter Details Date Type Department Care Team [...] 12:52 PM EST Prisca Yost, RN * [place] Suicide Severity Rating Scale (Screener/Recent Self-Report) Question [...] on filedocumented in this encounter Care Teams Implementation Specialist Payroll Relationship Specialty Start Date End Date Catrachito Curran DO [address] [place] [phone] PCP - General Internal Medicine 12/30/20 documented as of this encounter
--- OUTSIDE RECORDS SUMMARY | 2024-09-16 13:24 | XMS_ITS | Encounter Summary ---
Author Organization [facility] [place] [address] Care Team Providers Care Complex Manager Name Role Phone Bina Catrachito Primary Care Provider [phone] Encounter Details Date Type Department Care Team (Latest Contact Info) Description 09/16/2024 2:24 PM EDT Hospital Encounter TH HISTORIC ENCOUNTERS EASTERN CONVERSION ONLY Unilateral primary osteoarthritis, left knee; Pain in left knee Social History Tobacco Use Types Packs/Day Years [...] No Risk Indicated 09/25/2024 12:52 PM EST Galluc ci, Prisca R, RN * [place] Suicide Severity Rating Scale (Screener/Recent Self-Report) Question [...] Procedure Name Priority Date/Time Associated Diagnosis Comments CT KNEE LEFT URIEL PROTOCOL WITHOUT IV CONTRAST Routine 09/16/2024 2:35 PM EDT Unilateral primary osteoarthritis, left knee Pain in left knee documented in this encounter Results * CT KNEE LEFT URIEL PROTOCOL WITHOUT IV CONTRAST (09/16/2024 2:35 PM EDT) Anatomical Region Laterality Modality Computed Tomogra phy 07/30/2024 11:1 4 AM EDT Narrative 09/16/2024 3:[address] left knee Uriel protocol without contrast HISTORY: Degenerative arthritis left knee left knee pain Prior: None FINDINGS: Degenerative OA and osteopenia noted of the the left hip. The visualized portions of the intra-abdominal and pelvic structures show no evidence of acute pathology or malignancy. Severe tricompartmental degenerative OA left knee. Small joint effusion noted. Left ankle shows degenerative changes and osteopenia There is no evidence of fracture or destructive bony lesion. IMPRESSION: Severe tricompartmental degenerative OA and osteopenia left knee without fracture or destructive lesion. Report reviewed and signed by : Dr. Gigi Santamaria MD on 09/16/2024 3:00 PM. Workstation Name - [id number] Procedure Note Gigi Santamaria MD - 09/20/2024 CT left knee Uriel protocol without contrast HISTORY: Degenerative arthritis left knee left knee pain Prior: None FINDINGS: Degenerative OA and osteopenia noted of the the left hip. The visualized portions of the intra-abdominal and pelvic structures showno evidence of acute pathology or malignancy. Severe tricompartmental degenerative OA left knee. Small joint effusionnoted. Left ankle shows degenerative changes and osteopenia There is no evidence of fracture or destructive bony lesion. IMPRESSION: Severe tricompartmental degenerative OA and osteopenia left knee withoutfracture or destructive lesion. Report reviewed and signed by : Dr. Gigi Santamaria MD on 43:00 PM. Workstation Name - [id number] Daniel Kay MD IMG CT PROCEDURES Final Result documented in this encounter Visit Diagnoses Diagnosis Unilateral primary osteoarthritis, left knee Pain in left knee documented in this encounter Care Teams Complex Manager Relationship Specialty Start Date End Date Catrachito Curran DO [address] [place] [phone] PCP - General Internal Medicine 12/30/20 documented as of this encounter
--- OUTSIDE RECORDS SUMMARY | 2025-09-30 16:44 | XMS_ITS | Encounter Summary ---
Author Organization [facility] Address [address] [place] [address] Phone Care Team Providers Care Credit Professional Name Role Phone Catrachito Curran DO Primary Care Provider [phone] Encounter Details Date Type Department Care Team (Late st Contact Info) Description 10/10/2019 Procedure Pass OR Admitting Dept - Virtual Department [address] [place] [address] Social History Tobacco Use Types Packs/Day Years [...] on filedocumented in this encounter Care Teams Credit Professional Relationship Specialty Start Date End Date Catrachito Curran DO [address] [place] [address] PCP - General Internal Medicine 07/07/19 documented as of this encounter Additional Source Comments The information contained in this document represents components of the legal health record. It is not the complete legal health record.[facility]
--- OUTSIDE RECORDS SUMMARY | 2025-09-30 16:45 | XMS_ITS | Clinical Summary ---
Author Organization [facility] Address [address] [place] [address] Phone Care Team Providers Care Day Care Aide Name Role Phone Catrachito Curran DO Primary Care Provider + [phone] Allergies No known active allergies Medications levothyroxine [...] Active vitamins A,C,E-zinc-pop er (PRESERVISION AREDS) 14,320-226-200 inyk-jf-gnxc Cap Take 1 capsule by mouth 2 [...] 09/27/2024 Active calcium/vit D3/mag/folic ac/K1 ([place] CARBONATE-VIT M6-LTEK-ME-K ORAL) Take 10 mcg by mouth daily. [...] patient's age to complete this topic IPV VACCINES Aged Out No longer eligi ble based on patient's age to complete this topic MENINGOCOCCAL VACCINES (ACWY) Aged Out No longer eligible based on patient's age to complete this topic MENINGOCOCCAL VACCINES (B) Aged Out N o longer eligible based on patient's age to complete this topic Medical Devices Not on file Insurance MEDICARE PART A & B [place] MEDICARE COMPLEMENT [facility]PP[facility]MENT [facility] [place] A [place] [id number] [place] MEDICARE COMPLEMENT SUPPLEMENT [facility] Address: [address] [place] [address] [facility] MEDICARE REPLACEMENT [place] [id number] [place] MEDICARE COMPLEMENT SUPPLEMENT AETNA [facility] MEDICARE REPLACEMENT MEDICARE PART A & B [place] MEDICARE COMPLEMENT SUPPLEMENT AETNA O MEDICARE REPLACEMENT MEDICARE PART A & B [facility] MEDICARE COMPLEMENT SUPPLEMENT AETNA HMO MEDICARE REPLACEMENT MEDICARE PART A & B [facility] MEDICARE COMPLEMENT [facility] RE[facility] MEDICARE PART A & B [place] MEDICARE COMPLEMENT [facility] RE[facility] MEDICARE PART A & B [place] MEDICARE COMPLEMENT SUPPLEMENT AETNA [facility] MEDICARE REPLACEMENT MEDICARE PART A & B [place] MEDICARE COMPLEMENT [facility] MEDICARE REPLACEMENT Advance Directives For more information, please contact: [phone] (9AM - 5PM [facility], Sunday-Sunday) * Full Code (Presumed) (Latest Code Status on File) Date Activated Date Inactivated Comments 10/10/2019 7:44 AM 10/10/2019 1:50 PM * Full Code (Presumed) Date Activated Date Inactivated Comments 09/12/2019 7:33 AM 09/12/2019 4:40 PM Care Teams Day Care Aide Relationship Specialty Start Date End Date Catrachito Curran DO [address] [place] [address] PCP - General Internal Medicine 07/07/19 Additional Source Comments The information contained in this document represents components of the legal health record. It is not the complete legal health record.[facility]
--- OUTSIDE RECORDS SUMMARY | 2025-09-30 16:45 | XMS_ITS | Data Portability ---
Author Organization [facility] Address [address] [address] Assessment Encounter Date Assessment Date Assessment LastModified [...] Star Gibson MD [address], [place], [address], [place] - [facility] 12/20/2020 11:44:35 Unlisted procedure breast completed Star Gibson MD [address], [place], [address], [place] [facility]d [facility] 12/20/2020 11:44:52 excision of bunion completed Star Gibson MD [address], [place], [address], [place] [facility]-Ass[facility]d and [facility] 12/20/2020 11:45:07 Knee arthroscopy/surge ry completed Star Gibson MD [address], [place], [address], [place] [facility]-Assistd and [facility] 12/20/2020 [...] Updated DateTime 12/20/2020 163.83 cm 29.1 kg/m2 25778.89 g Star Gibson MD [address] [facility] Margaret,[facility] [address], [address], [place] Comp-Assistd and [facility]cnstr[facility] 12/20/2020 [...] Y COPD Y Pacemaker N Anemia N Ulcers N Heart Attack ([place]) N Diabetes N Bleeding Disorder N Orthotics N Seizures/Epilepsy N Arthritis N Blood Clot Y Tuberculosis N AIDS/HIV [...] ICD10 Code Diagnosis IMO Codes Diagnosis Note [id number] Star Gibson MD [facility] [address] [place] [address] 12/20/2020 08:07:36 12/20/2020 12:46:21 Health Concerns Section Related Observation LastModified by Organization Detai ls LastModified Time None Recorded Concern Status LastModified by Organization Details LastModified Time None Recorded Advance Directives Directive None Recorded Payers Insurance Date Sequence Insurance Name Policy Number Policy Degroot Covered Member ID Degroot Member ID Guarantor Name 12/20/2020 1 [employer]ETNA (MEDICARE REPLACEMENT/ ADVANTAGE - PPO) [id number] Miladis Geller [employer] Miladis Geller Notes Date Note Type Note Provider Name and Address Organization Details Recorded Time 12/20/2020 text/html KneeReported by PatientHPIFor location, patient reportsright. For alleviating factors, patient reportsrestandstret hui. For aggravating factors, patient reportswalking,vitaily g from sit to stand,upstairs, anddownstairs. For [...] noted in the HPI Star Gibson MD [address] [place] [address],[facility] [address], [place], [address], [place] - Comp-Assistd and [facility] 12/20/2020 11:49:35 OBGyn Episode No OBEpisode recorded.
--- OUTSIDE RECORDS SUMMARY | 2025-09-30 16:45 | XMS_ITS | Clinical Summary ---
Author Organization [facility] Health Address [address] [place] [address] Care Team Providers Care Hide Spreader Name Role Phone Unavailable Primary Care Provider [...]
--- OUTSIDE RECORDS SUMMARY | 2025-09-30 16:45 | XMS_ITS | Encounter Summary ---
Author Organization [facility] Health Address [address] [place] [address] Care Team Providers Care Electric Mule Operator Name Role Phone Unavailable Primary Care Provider Unavailabl e Prior Encounters Date Type Department Care Team Description 01/23/2025 2:00 PM PST Office Visit [facility] [address] [facility] [place] [address] [place] [phone] Kathy Guerrero DMD Dental caries, unspecified (Primary Dx); Encounter for dental examination and cleaning without abnormal findings 01/06/2025 1:30 PM PST Office Visit [facility] [address] [facility] [place] [address] [place] [phone] Garcia Moody DDS 12/10/2024 Orders Only [facility] [address] [facility] [place] [address] [place] [phone] Kathy Guerrero DMD 11/28/2024 2:00 PM PST Office Visit [facility] [address] [facility] [place] [address] [place] [phone] Kathy Guerrero DMD Last Filed Vital Signs [...]
--- OUTSIDE RECORDS SUMMARY | 2025-09-30 16:45 | XMS_ITS | Clinical Summary ---
Author Organization [facility] Address [address] [place] [address] Care Team Providers Care Dining Services Manager Name Role Phone Catrachito Curran DO Primary Care Provider + [phone] Allergies Active Allergy Reactions Criticality Noted Date Comments Fluoxetine 08/27/2024 Other reaction(s): fatigue Medications Medication Sig Dispensed Refills Start Date End Date Status atorvastatin (LIPITOR) tablet 40 mg Take 1 tablet (40 mg total) by mouth every evening. 0 11/30/2020 Active Lactobacillus-Inulin ([facility]) CAPS Take 200 [...] topic Medical Devices Implanted Type Area Supervisor Dock Device Identifier Shelf Expiration Date Model / Serial / Lot Component Femoral Posterior Stabilized Rt Size 4 Beaded W\Pe - [id number] - [id number] Implanted:Qty: 1 on 01/24/2021 by Daniel Kay MD at [facility] Right: Knee [employer] [id number] 07/19/2024 5516-F-402 / / [id number] Triathlon Tritanium Baseplate Size 5 - [id number] - [id number] Implanted:Qty: 1 on 01/24/2021 by Daniel Kay MD at [facility] Right: Knee [employer] [id number] 10/15/2025 5536-B-500 / / [id number] Insert Triathlon 5 11mm Posterior Stabilized Bearing X3 - [id number] - [id number] Implanted:Qty: 1 on 01/24/2021 by Daniel Kay MD at [facility] Right: Knee [employer] [id number] 11/24/2024 5532-G-511 / / [id number] Tritanium Asymmetric Metal Backed Patella 29mm - [id number] - [id number] Implanted:Qty: 1 on 01/24/2021 by Daniel Kay MD at [facility] Right: Knee [employer] [id number] 12/30/2025 5552-L-299 / / [id number] Advance Directives For more information, please contact: [phone] Latest Code Status on File Code Status [...] way: discussion with patient . Care Teams Dining Services Manager Relationship Specialty Start Date End Date Catrachito Curran DO [address] [place] [phone] PCP - General Internal Medicine 12/30/20
--- OUTSIDE RECORDS SUMMARY | 2025-09-30 16:45 | XMS_ITS | Clinical Summary ---
Author Organization [facility] Address [address] [place] [address] Phone Care Team Providers Care Steel Pickler Name Role Phone BinaCatrachito varghese Primary Care Provider [phone] Allergies Active Allergy Reactions Criticality Noted Date [...] (one) time each day. 07/29/2019 Active vitamins A,C,U-pkss-hmmjv r (PreserVision AREDS) 4,296 mcg-226 mg-90 mg [...] 2024 COPD (chronic obstructive pu lmonary disease) ([facility] V24, [facility] V28) 03/20/2025 Immunizations Immunization Administration Dates Next Due Moderna SARS-CoV-2 COVID-19, mRNA, LNP-S, preservative free 03/31/2022,09/27/2021 Pfizer SARS-CoV-2 COVID-19, mRNA, LNP-S, preservative free 02/08/2021,12/23/2020 Surgical History Surgery Date Site/Laterality Comments BREAST LUMPECTOMY COLONOSCOPY BUNIONECTOMY HYSTERECTOMY KNEE ARTHROSCOPY Right KNEE ARTHROPLASTY 11/19/2020 - 11/18/2021 Right TRIGGER FINGER RELEASE Medical History Medical History Date Comments Cancer ([facility] V24, [facility] V28) 2011 RT BREAST- MELISSA AND RAD [place] COPD (chronic obstructive pu lmonary disease) ([facility] V24, [facility] V28) DVT (deep venous thrombosis) ([facility] V24, [facility] V28) COUMADIN [place] Depression Shortness of breath [...] this topic Medical Devices Implanted Type Area Data Entry Device Identifier Shelf Expiration Date Model / Serial / Lot Knee Insrt Cs X3 Sz4 11mm - [id number] Implanted:Qty: 1 on 09/24/2024 by Daniel Kay MD at [facility] Knee Left: Knee [employer] [id number] 05/06/2029 5531-G-41 1 / / [id number] Knee Bsplt Triathlon Ti Sz 4 - [id number] Implanted:Qty: 1 on 09/24/2024 by Daniel Kay MD at [facility] Knee Left: Knee [employer] [id number] 07/02/2029 5536-B-40 0 / / [id number] Knee Fem Bsplt Beaded W/Pa Sz4 L - [id number] Implanted:Qty: 1 on 09/24/2024 by Daniel Kay MD at [facility] Knee Left: Knee [employer] [id number] 07/31/2029 5517-F-40 1 / / [id number] Knee Ptla Asym Tritanium 29x9 - [id number] Implanted:Qty: 1 on 09/24/2024 by Daniel Kay MD at [facility] Knee Left: Knee [employer] [id number] 06/26/2029 5552-L-29 9 / / [id number] Component Femoral Posterior Stabilized Rt Size 4 Beaded W\Pe - [id number] Implanted:Qty: 1 on 01/24/2021 by Daniel Kay MD Right: Knee [employer] [id number] 07/19/2024 5516-F-40 2 / / [id number] Triathlon Tritanium Baseplate Size 5 - [id number] Implanted:Qty: 1 on 01/24/2021 by Daniel Kay MD Right: Knee [employer] [id number] 10/15/2025 5536-B-50 0 / / [id number] Insert Triathlon 5 11mm Posterior Stabilized Bearing X3 - [id number] Implanted:Qty: 1 on 01/24/2021 by Daniel Kay MD Right: Knee [employer] [id number] 11/24/2024 5532-G-51 1 / / [id number] Tritanium Asymmetric Metal Backed Patella 29mm - [id number] Implanted:Qty: 1 on 01/24/2021 by Daniel Kay MD Right: Knee [employer] [id number] 12/30/2025 5552-L-29 9 / / [id number] Procedures [...] 8:36 AM 09/24/2024 2:14 PM This code s tatus was ascertained in the following way: Code status discussion: discussion with patient To update the patient's code status, place a code status order. Do not modify or discontinue any currently active code status orders. Care Teams Steel Pickler Relationship Specialty Start Date End Date Catrachito Curran DO [address] [place] [phone] PCP - General Internal Medicine 12/30/20
--- OUTSIDE RECORDS SUMMARY | 2025-09-30 16:45 | XMS_ITS | Encounter Summary ---
Author Organization [facility] Address [address] [place] [address] Phone Care Team Providers Care Inward Toll Operator Name Role Phone Catrachito Curran DO Primary Care Provider + [phone] Encounter Details Date Type Department Care Team (Late st Contact Info) Description 09/24/2019 Prep for Surgery [facility] Orthopedics & Sports Medicine [address] [place] [address] Wendi Nick MD [address] [place] [address] Orthopedics & Sports Medicine, [facility] [place] [address] [email or web address] Social History Tobacco Use Types Packs/Day Years [...] on filedocumented in this encounter Care Teams Inward Toll Operator Relationship Specialty Start Date End Date Catrachito Curran DO [address] [place] [address] PCP - General Internal Medicine 07/07/19 documented as of this encounter Additional Source Comments The information contained in this document represents components of the legal health record. It is not the complete legal health record.[facility]
--- OUTSIDE RECORDS SUMMARY | 2025-09-30 16:45 | XMS_ITS | Encounter Summary ---
Author Organization [facility] Address [address] [place] [address] Phone Care Team Providers Care Corn Husker Name Role Phone Catrachito Curran DO Primary Care Provider + [phone] Encounter Details Date Type Department Care Team (Late st Contact Info) Description 08/18/2019 Prep for Surgery [facility] Orthopedics & Sports Medicine [address] [place] [address] Wendi Nick MD [address] [place] [address] Orthopedics & Sports Medicine, [facility] [place] [address] Social History Tobacco Use Types Packs/Day Years [...] on filedocumented in this encounter Care Teams Corn Husker Relationship Specialty Start Date End Date Catrachito Curran DO [address] [place] [address] PCP - General Internal Medicine 07/07/19 documented as of this encounter Additional Source Comments The information contained in this document represents components of the legal health record. It is not the complete legal health record.[facility]
--- OUTSIDE RECORDS SUMMARY | 2025-09-30 16:45 | XMS_ITS | Data Portability ---
Author Organization [facility] [address] Address [address] [place] [address] Care Team Providers Care Civil Engineering Design Draftsperson Name Role Phone TAD ALEXANDER Primary Care Provider Assessment No assessment recorded. Plan of Treatment Reminders Order Date Submit Date Provider Last Modified By Organization Details Last Modified Time Details Appointments None recorded. Lab microorgani sm identificat ion, unspecified specimen 2022 023 [place] [facility], [address] [place] [address], [place], [address], 16:06:56 Referral None recorded. Procedures None recorded. Surgeries None recorded. Imaging None recorded. Medication Orders doxycycline hyclate 100 mg capsule 2022 023 fijaz3 [id number], [address] [place], [address], 16:19:45 Patient TargetsNo targets recorded. Patient Instructions Encounter Date Encounter Id Patient Instructions Last Modified By Organization Details Last Modified Time 03/18/2023 [id number] Ticks are small spider-like animals. They bite [...] the ice and your skin. Try an hgfx-pkr-sdburql medicine to relieve itching, redness, swelling, and [...] your doctor if you can take an iqyo-rvx-elhrtbr medicine. Keep your bandage clean and dry. [...] wound closes. Not available 03/18/2023 16:15:19 03/22/2023 [id number] A skin abscess i s a bacterial [...] your doctor if you can take an yswl-xks-zdvdjoa medicine. Keep your bandage clean and dry. [...] bacterial culture FINAL REPORT Not Available [facility] ([facility]) [address] [place], [address], 03/20/2023 16:06:56 03/18/2003/20/2023 AEROB IC BACTE RIAL CULTU RE result 1 MIXED SKIN KRISTEN Not Available [facility] ([facility]) [address] [place], [address], 03/20/2023 16:06:56 Result Notes None recorded. Problems Name Problem SNOMED Code Status Onset Date Resolution Date Notes Provider Name and Address Organization Details Recorded Time Hypothyroidism 25233933 Active 2022 [facility] 14:46:32 Hypercholestero lemia 75126938 Active 2022 [facility] 14:46:38 Depressive disorder 62685504 Active 2022 Fanta mendes PA - [facility] 14:46:43 Problem Notes None recorded. Procedures Surgical History Date Name Laterality Status Provider Name and Address Organization Details Recorded Time 3 Wound Dressing completed Cassius Schwartz NP [address] [facility], [place], [address], [place] - [facility] 03/22/2023 08:47:17 3 I&D, with Packing completed Cassius Schwartz NP [address], [place], [address], [place] - [facility] 03/18/2023 16:13:53 Knee [...] Last Updated DateTime 162.56 cm 29.2 kg/m2 97457.7 g 100 % 100 % 6 20 /min 97.9 [degF] 52 /min 119/67 mm[Hg] Fanta Florence PA - [facility] 14:49:35 Date Recorded Body height Body mass index (BMI) Body weight Pain severity - 0-10 verbal numeric rating [Score] - Reported Respiratory rate Heart rate Oxygen saturation Oxygen saturation in Arterial blood by Pulse oximetry Body temperature Systolic And Diastolic Provider Name and Address Organization Details Last Updated DateTime 162.56 cm 29.2 kg/m2 58907.7 g 0 20 /min 74 /min 96 % 96 % 97.8 [degF] 137/72 mm[Hg] Fanta Florence PA - [facility] 08:19:42 Social History Question Answer Notes LastModified by Markr Details LastModified Time Tobacco Smoking Status Never [...] or 50 mcg/0.25mL dose 03/31/2022 completed Fanta Naman null, [facility] - [facility] [...] ICD10 Code Diagnosis IMO Codes Diagnosis Note [id number] [address] [place] [address] 08/18/2019 10:09:44 08/18/2019 11:00:54 [id number] Cassius Schwartz NP [address] [place] [address] 03/18/2023 14:13:36 03/18/2023 16:18:52 Abscess of skin of left shoulder [id number] 5097834 L02.414 Tick bite 02593110 W57.X XXA Puncture w ound of abdomen 295398911 S31.134A [id number] Cassius Schwartz NP [address] [place] [address] 03/22/2023 08:06:13 03/22/2023 08:50:44 Abscess of shoulder 91860001 L02.419 Continue antibiotic s as prescribed . [...] B-[place]: [employer] Miladis E Duyen [id number] Miladis [place] 03/18/2023 2 [facility] PLAN - PREFERRED (MEDICARE SUPPLEMENT) [id number] Miladis Duyen [id number] Miladis Duyen 03/18/2023 2 [employer] (MEDICARE REPLACEMENT/ ADVANTAGE - PPO) [id number] Miladis E Prescott [id number] Miladis Duyen 03/22/2023 [facility] [employer] (MEDICARE DME REGION A) Miladis E Duyen [id number] Miladis Duyen 03/22/2023 1 [employer] (MEDICARE REPLACEMENT/ ADVANTAGE - PPO) [id number] Miladis E Duyen [id number] Miladis Duyen Notes Date Note Type Note [...] Cassius Schwartz NP [address] [place], [address], [place] - [facility] 03/18/2023 16:20:17 03/22/2023 [...] Cassius Schwartz NP [address] [place], [address], [place] - [facility] 03/22/2023 08:48:31 OBGyn Episode No OBEpisode recorded.
--- OUTSIDE RECORDS SUMMARY | 2025-09-30 16:45 | XMS_ITS | Encounter Summary ---
Author Organization [facility] Address [address] [place] [address] Phone Care Team Providers Care Dry Pan Feeder Name Role Phone Catrachito Curran DO Primary Care Provider [phone] Encounter Details Date Type Department Care Team (Late st Contact Info) Description 09/12/2019 Procedure Pass OR Admitting Dept - Virtual Department [address] [place] [address] Social History Tobacco Use Types Packs/Day Years [...] on filedocumented in this encounter Care Teams Dry Pan Feeder Relationship Specialty Start Date End Date Catrachito Curran DO [address] [place] [address] PCP - General Internal Medicine 07/07/19 documented as of this encounter Additional Source Comments The information contained in this document represents components of the legal health record. It is not the complete legal health record.[facility]
--- NOTE | 2025-10-14 10:10 | HO.ANESPROP2 ---
Documented by User: Fransisca Castellano NP 10/14/25 10:14 HPI - Anesthesia Eval Consult details Narrative: 80 yr old female for Cystoscopy with Bulkamid Asthma/?COPD: follows [facility] pulmo, last visit 07/2025, started on Wixela; optimized per addendum bu Dr. Jenkins 09/29/25. GERD: on PPI PMFSH Active Problems Active Problems: All Active Problems Elevated diaphragm (Acute) KATIUSKA (stress urinary incontinence, female) (Acute) Osteopenia (Acute) Obesity (BMI 30-39.9) (Acute) Asthma (Acute) History of breast cancer (Acute) Establishing care with new doctor, encounter for (Acute) History of smoking (Acute) Shortness of breath (Acute) Urinary incontinence (Acute) Epigastric abdominal pain (Acute) GERD (gastroesophageal reflux disease) (Acute) Scoliosis deformity of spine (Acute) Diaphragm, eventration (Acute) Dyspnea on exertion (Acute) Past Medical History Medical History Elevated diaphragm Osteopenia Obesity (BMI 30-39.9) Asthma History of breast cancer Establishing care with new doctor, encounter for History of smoking Shortness of breath Urinary incontinence Epigastric abdominal pain GERD (gastroesophageal reflux disease) Scoliosis deformity of spine Diaphragm, eventration Dyspnea on exertion History of right breast cancer Arthritis Hypothyroid Depression COPD (chronic obstructive pulmonary disease) Elevated cholesterol Family History Family History Father Heart attack Mother AD (Alzheimer's disease) Sister Heart attack Surgical History Surgical History Hx of arthroscopy of knee History of bunionectomy Hx of hysterectomy Hx of colonoscopy History of lumpectomy of right breast Social History Social History Housing: House Do you presently have visiting nurse or other home services: No Alcohol intake: current Alcohol intake frequency: does not drink Patient Tobacco Use Status: Former Tobacco user Years Smoked: 31 Have you been hit, kicked, punched, or otherwise hurt by someone within the past year? If so, by whom?: No Are you DNR?: No Advance Directives: No Advance Directives Information Provided: Yes service: No Current occupational status: retired Cognitive needs: Yes (uses cane when needed) Hearing needs: No Vision needs: Yes (rx glasses) Meds Allergies Allergy/AdvReac Type Severity Reaction Status Date / Time No Known Allergies (No Known Allergy Verified 08/13/25 14:41 Allergies*) Home Medications ?Medication ?Instructions ?Recorded ?Confirmed ?Last Taken ?Type cholecalciferol (vitamin D3) 50 50 mcg PO DAILY 04/26/21 10/14/25 Unknown History mcg (2,000 unit) capsule multivitamin (Daily Multi-Vitamin See Rx Instructions PO DAILY 04/26/21 10/14/25 Unknown History tablet) losartan 25 mg tablet 25 mg PO DAILY 10/20/25 10/20/25 10/20/25 History Exam Height,Weight and Vital Signs: Height 5 ft 4 in Weight 79.379 kg Narrative Narrative: EKG 02/2025 Vent. Rate : 70 BPM Atrial Rate : 70 BPM P-R Int : 180 ms QRS Dur : 74 ms QT Int : 438 ms P-R-T Axes : 69 -48 48 degrees QTcB Int : 473 ms Sinus rhythm with Premature supraventricular complexes Left axis deviation Anteroseptal infarct (cited on or before 13-Feb-2003) Abnormal ECG When compared with ECG of 20-Sep-2022 14:41, Premature supraventricular complexes are now Present Documented by User: Nakul Berger MD 10/20/25 08:39 [facility] Past Medical History Medical History Elevated diaphragm Osteopenia Obesity (BMI 30-39.9) Asthma History of breast cancer Establishing care with new doctor, encounter for History of smoking Shortness of breath Urinary incontinence Epigastric abdominal pain GERD (gastroesophageal reflux disease) Scoliosis deformity of spine Diaphragm, eventration Dyspnea on exertion History of right breast cancer Arthritis Hypothyroid Depression COPD (chronic obstructive pulmonary disease) Elevated cholesterol Functional capacity: independent ambulation Family History Family History Father Heart attack Mother AD (Alzheimer's disease) Sister Heart attack Family history of problems with anesthesia: No Surgical History Surgical History Hx of arthroscopy of knee History of bunionectomy Hx of hysterectomy Hx of colonoscopy History of lumpectomy of right breast History of Problems with Anesthesia: No Social History Social History Housing: House Do you presently have visiting nurse or other home services: No Alcohol intake: current Alcohol intake frequency: does not drink Patient Tobacco Use Status: Former Tobacco user Years Smoked: 31 Have you been hit, kicked, punched, or otherwise hurt by someone within the past year? If so, by whom?: No Are you DNR?: No Advance Directives: No Advance Directives Information Provided: Yes service: No Current occupational status: retired Cognitive needs: Yes (uses cane when needed) Hearing needs: No Vision needs: Yes (rx glasses) Meds Allergies Allergy/AdvReac Type Severity Reaction Status Date / Time No Known Allergies (No Known Allergy Verified 08/13/25 14:41 Allergies*) Home Medications ?Medication ?Instructions ?Recorded ?Confirmed ?Last Taken ?Type cholecalciferol (vitamin D3) 50 50 mcg PO DAILY 04/26/21 10/14/25 Unknown History mcg (2,000 unit) capsule multivitamin (Daily Multi-Vitamin See Rx Instructions PO DAILY 04/26/21 10/14/25 Unknown History tablet) losartan 25 mg tablet 25 mg PO DAILY 10/20/25 10/20/25 10/20/25 History Exam Exam Date and Time: 10/20/25 Airway TM Dist: >3cm Neck ROM: Full Loose/Missing/Broken Teeth: No Heart: normal Lungs: normal Other: normal Assessment and Plan Assessment Anesthesia Assessment: Anesthesia Plan Discussed and Chart Reviewed Final Anesthetic Review Family History of Problems with Anesthesia: No History of Problems with Anesthesia: No NPO: Yes ASA Class: II Final Preanesthetic Review: No Changes in Pt Med Stat, Meds/Allgs Chart Reviewed, Consent Obtained/Reviewed and Anes Risks/Benef Reviewed Patient Risk: Low Procedure Risk: Low Anesthetic Plan Anesthetic Plan: MAC: Disposition: Standard PACU
[2025-10-20] VITALS (11 sets, daily range): BP systolic 102–139; BP diastolic 55–77; PULSE 67–81; RESP 12–19; TEMP 36.1–36.2; O2SAT 92–99; BMI 30.2
[2025-10-20] MEDS: Lactated Ringers 1,000 ML 100 ML IVCONT ×2 (08:14→10:27)
--- NOTE | 2025-10-20 08:32 | P.OP_ITS ---
Operative Note Operative Note Date of Service: 10/20/25 Narrative: Preop diagnosis: Stress Urinary Incontience, Intrinsic sphincter deficiency Postop diagnosis: Stress Urinary Incontience, Intrinsic sphincter deficiency Procedure: Cystoscopy urethral bulking with bulkamid system at the proximal urethra Surgeon: Dr. Richard Jauregui Details of procedure: The patient was brought into the operating room placed on the OR table in supine position anesthesia was administered. Antibiotics confirmed. The patient was placed in lithotomy position prepped and draped in the usual sterile fashion. Safety time-out was done. A 12 Gambian straight catheter was used to send urine for culture. 2% lidocaine jelly was inserted transurethrally 10 mL. The 22 fr 11 cm cystoscope, with 0 degree lens with the light cord in the 6 o'clock position, was passed transurethrally, the bladder was filled with sterile water to 100 mL the bladder was visualized. With the sheath at the 5 o'clock position the needle was inserted to the 1 cm juliano the gel was injected there was some bulking noted, completion of the 1.o mL gel was injected into the 7 o'clock and 6'oclock position. The 2nd needle was inserted into the sheath and an injection was done at the 2 o'clock position and again at the 11 o'clock position. There was bulking of the mucosa noted with some coaptation. The patient tolerated the procedure and was taken to recovery in stable condition. Complication: none EBL: minimal (<5 mL) Drains: none
--- NOTE | 2025-10-20 08:32 | MHC.SHP ---
Pre-Procedural Eval Section A - 24 Hr Update-Section A only Date of Service: 10/20/25 The patient is an INPATIENT: No The patient has been examined within 24 hours of the surgical procedure. The History & Physical has been completed within 30 days and I have reviewed it.: Yes Section B - Complete if H&P > 30 days Chief Complaint: Stress incontinence (female) (male) Allergies: Allergies Allergy/AdvReac Type Severity Reaction Status Date / Time No Known Allergies (No Known Allergy Verified 08/13/25 14:41 Allergies*) Plan Diagnosis/Plan: Unchanged I have reviewed the history and physical and performed a pertinent physical examination on my patient. No changes have occurred unless specified. Cystoscopy. Bulkamid, urethral bulking. I have discussed the risks of bulking injection to the proximal urethra to include but not limited to urine retention requiring a allen catheter, need to repeat the procedure, hematuria, and urgency. Time Spent With Patient Time: Total time managing care of this patient today ____ minutes.
== END 2025-10-20 12:15 | disposition home or self-care (01) ==
PROVIDERS: PCP Internal Medicine; Visit Provider Urology
PROC: 0TJB8ZZ Inspection of Bladder, Via Natural or Artificial Opening Endoscopic (ICD-10-PCS; CPT 52000; principal; 2025-10-20 08:50)
DX: N39.3 Stress incontinence (female) (male) (principal); N36.42 Intrinsic sphincter deficiency (ISD); Q79.1 Other congenital malformations of diaphragm; Z85.3 Personal history of malignant neoplasm of breast; M85.80 Other specified disorders of bone density and structure, unspecified site; J44.9 Chronic obstructive pulmonary disease, unspecified; E78.00 Pure hypercholesterolemia, unspecified; E03.9 Hypothyroidism, unspecified; R06.02 Shortness of breath; E66.9 Obesity, unspecified; Z68.30 Body mass index [BMI] 30.0-30.9, adult; M41.9 Scoliosis, unspecified; K21.9 Gastro-esophageal reflux disease without esophagitis; Z79.51 Long term (current) use of inhaled steroids; Z98.890 Other specified postprocedural states; Z79.899 Other long term (current) drug therapy; Z87.891 Personal history of nicotine dependence
CPT/HCPCS: 51715; 87086; J0690; J1100; J1171; J1596; J2003; J2405; J2704; J3010; L8606

== ENCOUNTER → 2025-10-20 07:33 | Outpatient (BNV) | payer MEDICARE, SELFPAY | PROVIDERS: PCP Internal Medicine; Visit Provider Urology | DX: N36.42 Intrinsic sphincter deficiency (ISD) (principal); N39.3 Stress incontinence (female) (male) | CPT/HCPCS: 51715 ==

== ENCOUNTER → 2025-10-22 10:58 | Outpatient (BNVA) | payer MEDICARE, SELFPAY | PROVIDERS: PCP Physician Assistant Medical; Visit Provider Urology | DX: N39.3 Stress incontinence (female) (male) (principal) | CPT/HCPCS: 51798 ==

== ENCOUNTER 2025-11-06 09:23 | Outpatient (REF) | payer MEDICARE, SELFPAY ==
--- OUTSIDE RECORDS SUMMARY | 2024-09-04 12:05 | XMS_ITS | Encounter Summary ---
Author Organization [facility] [place] [address] Care Team Providers Care Checker And Packer Name Role Phone Bina Catrachito Primary Care Provider [phone] Encounter Details Date Type Department Care Team (Late st Contact Info) Description 09/04/2024 1:05 PM EDT Hospital Encounter TH HISTORIC ENCOUNTERS EASTERN CONVERSION ONLY Sarah Gonzalez MD [address] [place] [id number] Social History Tobacco Use Types Packs/Day Years Used Date Smoking Tobacco: Former Cigarettes Passive Smoke Exposure: Past Smokeless Tobacco: Never Comments:1 PPD/ 30 YEARS, QU IT 1993 Alcohol Use Standard Drinks/Week Comments Not Currently 0 (1 standard drink = 0.6 oz pur e alcohol) Interpersonal Safety Answer Date Record ed Physical Abuse Unrecognized value 09/24/2024 Verbal Abuse Unrecognized value 09/24/2024 Comments Unknown Sex and Gender Information Value Date Recorded Sex Assigned at Female 09/24/2024 7:28 AM EST Legal Sex Female 3:31 AM EST Gender Identity Female 09/24/2024 7:28 AM EST Sexual Orientation Not on file documented as of this encounter Last Filed Vital Signs Vital Sign Reading Time Taken Comments Blood Pressure 124/82 09/04/2024 1:17 PM EDT Pulse 87 09/04/2024 1:17 PM EDT Temperature - - Respiratory Rate - - Oxygen Saturation - - Inhaled Oxygen Concentration - - Weight 77.6 kg (171 lb) 09/09/2024 2:40 PM EDT Height 157.5 cm (5' 2.01 ) 09/09/2024 2:40 PM ED T Body Mass Index 31.27 09/09/2024 2:40 PM EDT documented in this encounter Functional Status * Calculated C-SSRS Risk Score (Lifetime/Recent) Answer Date of Assessment Author No Risk Indicated 09/25/2024 12:52 PM Prisca Lakhani RN * [place] Suicide Severity Rating Scale (Screener/Recent Self-Report) Question Answer Date of Assessment Author 1. Wish to be (Past 1 Month) No 09/25/2024 12:52 PM Prisca Iverson RN 2. Non-Specific Active Suici porsche Thoughts (Past 1 Month) No 09/25/2024 12:[address] raúl Iverson RN 6. Suicidal Behavior (Lifetime) No 12:52 PM Prisca Iverson RN documented as of this encounter Progress Notes * Sarah Gonzalez MD - 09/04/2024 1:30 PM EDT Images from the original note were not included. Progress Notes by Sarah Gonzalez MD at 09/04/2024 1:30 PM Author: Sarah Gonzalez MD Service: -- Author Type: Physician Filed: 09/04/2024 1:59 PM Encounter Date: 09/04/2024 Status: Signed Seismic Plotter: Sarah Gonzalez MD (Physician) Cardiology Attending New Outpatient Note- Skip Gonzalez MD Patient Name:Miladis Geller Patient :1945 Referring MD:Catrachito Curran DO Chief Complaint: No chief complaint on file. HPI: The patient is a 79 y.o. female with a history of COPD, osteoarthritis of the knee and dyslipidemiapresents for preoperative cardiovascular risk assessment. Patient reports that she lives by herself. She is an ex smoker, developed COPD. She was last seen by Dr. Greene in our group, in 2020 for preoperative restratification prior to her right knee surgery. She underwent an echocardiogram and nuclear stress test both of which were unremarkable preoperatively. Now she is scheduled to undergo left knee replacement on 09/22/2024. She reports that her sister of a heart attack 2 weeks ago. She was 71 years old. Her father also of an [place]. She remains reasonably physically active including gardening, goes to [facility] For exercise, twice a week, she walks her dog but less than a mile. She reads books. She reports 1 year history of mild dyspnea on exertion. No chest pain, edema, orthopnea, PND, palpitations or syncope. There is no problem list on file for this patient. Past Medical History: Diagnosis Date ? Abnormal EKG 01/11/2021 T wave inversion AVL ? Cancer (HCC) 2012 rt breast - surgery and Rad Tx ? COPD (chronic obstructive pulmonary disease) (HCC) mild SOB with excerise - ex smoker ? Deep vein thrombosis (HCC) Post op Left Knee scope- Rx coumadin ? Depression ? CARTER (dyspnea on exertion) PASS h&p ? Edema of left lower extremity PASS h&p ? GERD (gastroesophageal reflux disease) MILD ? History of vertigo X1, RESOLVED ? Hyperlipidemia ? Hypothyroidism ? Osteoarthritis ? Peripheral neuropathy bilat feet - numbness ? Urinary incontinence ? Urinary urgency mild Past Surgical History: Procedure Laterality Date ? BREAST SURGERY Right Lumpectomy x2- No arm restrictions ? COLONOSCOPY ? FOOT SURGERY Right 11/24/2020 bunion ? HYSTERECTOMY ? KNEE SURGERY Right Scope ? TOTAL KNEE ARTHROPLASTY Right 2020 ? TRIGGER FINGER RELEASE Left 09/12/2019 middle and ring ? TRIGGER FINGER RELEASE Left 10/10/2019 small and middle Social History Socioeconomic History ? Marital status: Spouse name: Not on file ? Number of children: Not on file ? Years of education: Not on file ? Highest education level: Not on file Occupational History ? Not on file Tobacco Use ? Smoking status: Former Packs/day: 1.00 Years: 30.00 Additional pack years: 0.00 Total pack years: 30.00 Types: Cigarettes Start date: 1963 Quit date: 1993 Years since quittin.8 ? Smokeless tobacco: Never Substance and Sexual Activity ? Alcohol use: No ? Drug use: No ? Sexual activity: Not on file Other Topics Concern ? Not on file Social History Narrative ? Not on file Social Determinants of Health Financial Resource Strain: Not on file Food Insecurity: Not on file Transportation Needs: Not on file Social Connections: Not on file Housing Stability: Not on file Family History Problem Relation Age of Onset ? Alzheimer's disease Mother ? Heart attack Father 54 ? Cancer Sister 1 sister Breast Ca ? Heart attack Sister 73 Current Outpatient Medications Medication Sig Dispense Refill ? Ascorbic Acid (VITAMIN C PO) Take by mouth daily. ? atorvastatin (LIPITOR) tablet 40 mg Take 1 tablet (40 mg total) by mouth every evening. ? Bilberry, Vaccinium myrtillus, (BILBERRY PO) Take by mouth daily. ? Calcium Carb-Cholecalciferol 600-5 MG-MCG TABS daily. ? co-enzyme Q-10 30 MG capsule 1 capsule (30 mg total) daily. ? COD LIVER OIL PO Take by mouth daily. ? Lactobacillus-Inulin ([facility] [employer]) CAPS Take 200 mg by mouth daily. ? levothyroxine (SYNTHROID, LEVOXYL) tablet 75 mcg TAKE 1 TABLET BY MOUTH EVERY DAY IN THE MORNING ON EMPTY STOMACH ? MILK THISTLE PO Take by mouth daily. ? Multiple Vitamins-Minerals (PRESERVISION AREDS) CAPS Take 1 capsule by mouth daily. ? traZODone (DESYREL) 50 MG tablet Take 1 tablet (50 mg total) by mouth every night at bedtime. ? venlafaxine (EFFEXOR-XR) 75 MG 24 hr capsule daily. No current facility-administered medications for this visit. Allergies Allergen Reactions ? Fluoxetine Other reaction(s): fatigue Review of Systems: (complete 12 point ROS completed and was all negative-except for noted positives in HPI and below) Constitutional: No fever, chills. No significant weight changes. Eyes : No visual field defects. CVS: As per HPI Resp: No cough, wheeze or sputum. GI: No nausea or vomitting. No diarrhea. No jaundice. : No urinary hesitancy or dribbling. No nocturia or urinary frequency. Skin: No skin changes. Vascular: No claudication or limb ischemia. Hem: No abnormal clotting. No bruising or bleeding. Rheum/MSK: No new joint swelling or pain. Neurologic: No focal neurological signs. Psych: Stable mood. Please see complete ROS scanned into the chart. Physical Exam: Vital signs: Vitals: 09/04/24 1317 BP: 124/82 Pulse: 87 SpO2: 97% Weight: 77.1 kg (170 lb) Height: 5' 4 (1.626 m) Body mass index is 29.18 kg/m??. General: Awake, alert, appears comfortable Head: Normocephalic and atraumatic. Neck: Supple. No carotid bruits. No JVD Cardiac: Regular rhythm. Normal heart sounds. No murmurs. Respiratory: Normal effort. Clear lungs. No crackles or wheezes. Abdomen: Soft. Non-tender. Non-distended. +BS Skin/Vascular: Warm dry skin. Normal peripheral pulses. Extremities: No LE edema. Neurologic: No focal abnormalities. Psychiatric: Alert and oriented x3. Normal mood. Labs: Lab Results Component Value Date WBC 8.4 01/26/2021 RBC 3.50 (L) 01/26/2021 HEMATOCRIT 30.5 (L) 01/26/2021 HEMOGLOBIN 9.9 (L) 01/26/2021 MCV 87.1 01/26/2021 MCH 28.3 01/26/2021 MCHC 32.5 01/26/2021 RDW 14.0 01/26/2021 PLTCOUNT 224 01/26/2021 MPV 8.2 01/26/2021 NEUTROPHILS 63.5 01/11/2021 LYMPHOCYTES 27.9 01/11/2021 EOSINOPHILS 1.0 01/11/2021 BASOPHILS 0.4 01/11/2021 NEUTROPHABSO 3.6 01/11/2021 LYMPHOCYABSO 1.6 01/11/2021 MONOCYTABSOL 0.4 01/11/2021 EOSINOPHIABS 0.1 01/11/2021 BASOPHILSABS 0.0 01/11/2021 Lab Results Component Value Date BUN 13 01/11/2021 CREATININE 0.6 01/26/2021 NA 139 01/11/2021 K 4.3 01/11/2021 CL 99 01/11/2021 CO2 28 01/11/2021 CALCIUM 10.1 01/11/2021 ALBUMIN 4.8 01/11/2021 ALKPHOS 63 01/11/2021 AST 24 01/11/2021 ALT 17 01/11/2021 LABBILI 0.7 01/11/2021 Lab Results Component Value Date HGBA1C 5.2 01/11/2021 No results found for: CHOL , HDL , LDLCHOL , TRIGLYCERIDE , CHOLHDLCRAT Data/Imaging: No results found. *I have personally reviewed the patients cardiac imaging and diagnostics and my independent conclusions are contained below. TTE, 01/2021-pharmacological nuclear stress test ?? Normal SPECT Gated MIBI protocol stress test including a Lexiscan pharmacologic stress protocol. The left ventricular ejection fraction is hyperdynamic (>70%). ?? Left ventricular perfusion is normal. ?? The scan significance is low risk. ECG: Normal sinus rhythm Left axis deviation Left ventricular hypertrophy Anterolateral infarct Assessment and Plan: --Dyspnea on exertion -- Abnormal EKG with new anterolateral infarct pattern (possible LAFB versus old infarct) -- COPD -- Dyslipidemia She is on Lipitor 40 mg p.o. daily, lipid panel is not available for review. Will not make any changes at this point. Dyspnea on exertion since 1 year could be due to COPD, but will have to rule out myocardial ischemia with new EKG changes as above. Plan for pharmacological nuclear stress test for preoperative risk stratification. The patient was counseled on therapeutic lifestyle changes, including cardiovascular exercise and dietary modification, to promote achieving goal weight, optimal lipid parameters, and increased cardiovascular fitness . Diagnoses and all orders for this visit: Pre-op evaluation - ECG 12 lead No follow-ups on file. Skip Gonzalez MD CCC documented in this encounter Plan of Treatment Not on file documented as of this encounter Procedures Procedure Name Priority Date/Time Associated Diagnosis Comments ECG 09/04/2024 documented in this encounter Results * ECG (09/04/2024) us Provider Onbase CV HISTORICAL CONV PROCEDURES Final Result documented in this encounter Visit Diagnoses Not on filedocumented in this encounter Care Teams Checker And Packer Relationship Specialty Start Date End Date Catrachito Curran DO [address] [place] [phone] PCP - General Internal Medicine 12/30/20 documented as of this encounter
--- OUTSIDE RECORDS SUMMARY | 2024-09-15 08:13 | XMS_ITS | Encounter Summary ---
Author Organization [facility] [place] [address] Care Team Providers Care Dividend Deposit Voucher Clerk Name Role Phone BinaCatrachito varghese Primary Care Provider [phone] Encounter Details Date Type Department Care Team (Latest Contact Info) Description 09/15/2024 9:13 AM EDT Hospital Encounter TH HISTORIC ENCOUNTERS EASTERN CONVERSION ONLY Encounter for other preprocedural examination Social History Tobacco Use Types Packs/Day Years [...] Sign Reading Time Taken Comments Blood Pressure - - Pulse - - Temperature - - Respiratory Rate - - Oxygen Saturation - - Inhaled Oxygen Concentration - - Weight 77.1 kg (170 lb) 09/15/2024 9:15 AM EDT Height 162.6 cm (5' 4 ) 09/15/2024 9:14 AM EDT Body Mass Index 29.18 09/15/2024 9:14 AM EDT documented in this encounter Functional Status * Calculated C-SSRS Risk Score (Lifetime/Recent) Answer Date of Assessment Author No Risk Indicated 09/25/2024 12:52 PM EST Prisca Yost RN * [place] Suicide Severity Rating Scale (Screener/Recent Self-Report) Question Answer Date of Assessment Author 1. Wish to be (Past 1 Month) No 09/25/2024 12:52 PM rPisca Iverson RN 2. Non-Specific Active Suici porsche Thoughts (Past 1 Month) No 09/25/2024 12:[address] raúl Iverson RN 6. Suicidal Behavior (Lifetime) No 12:52 PM Prisca Iverson RN documented as of this encounter Plan of Treatment Not on file documented as of this encounter Procedures Procedure Name Priority Date/Time Associated Diagnosis Comments STRESS TEST LEXISCAN WITH MYOCARDIAL PERFUSION Routine 09/15/2024 11:57 AM EDT Encounter for other preprocedural examination documented in this encounter Results * Stress Test Lexiscan With Myocardial Perfusion (09/15/2024 11:57 AM EDT) Anatomical Region Laterality Modality Other 09/15/2024 Narrative 09/15/2024 4:44 PM EDT This is a summary report. The complete report is available in the patient's medical record. If you cannot access the medical record, please contact the sending organization for a detailed fax or copy. Normal myocardial perfusion study. The patient underwent REST and STRESS SPECT Myocardial Perfusion Imaging with a Regadenoson stress test. The left ventricular ejection fraction is normal (50-70%). LVEF = 74% at rest. LVEF = 78% during stress. The left and right ventricular size is normal with normal wall motion. This is a low risk study for cardiac events. 8 Procedure Note Clarence Navarrete MD - 09/20/2024 This is a summary report. The complete report is available in thepatient's medical record. If you cannot access the medical record, pleasecontact the sending organization for a detailed fax or copy. Normal myocardial perfusion study. The patient underwent REST and STRESS SPECT Myocardial Perfusion Imagingwith a Regadenoson stress test. The left ventricular ejection fraction is normal (50-70%). LVEF = 74% atrest. LVEF = 78% during stress. The left and right ventricular size is normal with normal wall motion. This is a low risk study for cardiac events. 8 us Sarah Gonzaelz MD CV HISTORICAL CONV PROCE DURKENYA Final Result documented in this encounter Visit Diagnoses Diagnosis Encounter for other preprocedural examination documented in this encounter Care Teams Dividend Deposit Voucher Clerk Relationship Specialty Start Date End Date Catrachito Curran DO [address] [place] [phone] PCP - General Internal Medicine 12/30/20 documented as of this encounter
--- OUTSIDE RECORDS SUMMARY | 2024-09-15 08:13 | XMS_ITS | Encounter Summary ---
Author Organization [facility] [place] [address] Care Team Providers Care Vocational Horticulture Instructor Name Role Phone BinaCatrachito varghese Primary Care Provider [phone] Encounter Details Date Type Department Care Team (Late st Contact Info) Description 09/15/2024 9:13 AM EDT Hospital Encounter TH HISTORIC ENCOUNTERS EASTERN CONVERSION ONLY Social History Tobacco Use Types Packs/Day Years [...] Risk Indicated 09/25/2024 12:52 PM EST Prisca Yost, RN * [place] Suicide Severity Rating Scale (Screener/Recent Self-Report) Question [...] on file documented as of this encounter Visit Diagnoses Not on filedocumented in this encounter Care Teams Vocational Horticulture Instructor Relationship Specialty Start Date End Date Catrachito Curran DO [address] [place] [phone] PCP - General Internal Medicine 12/30/20 documented as of this encounter
--- OUTSIDE RECORDS SUMMARY | 2024-09-16 13:24 | XMS_ITS | Encounter Summary ---
Author Organization [facility] [place] [address] Care Team Providers Care Advertising Inserter Name Role Phone Bina Catrachito Primary Care Provider [phone] Encounter Details Date Type Department Care Team [...] EST Galluc ci, Prisca R, RN * [place] Suicide Severity Rating Scale (Screener/Recent Self-Report) Question [...] on 09/16/2024 3:00 PM. Workstation Name - [id number] Procedure Note Gigi Santamaria MD - 09/20/2024 [...] MD on 43:00 PM. Workstation Name - [id number] Daniel Kay MD IMG CT PROCEDURES Final Result documented in this encounter Visit Diagnoses Diagnosis Unilateral primary osteoarthritis, left knee Pain in left knee documented in this encounter Care Teams Advertising Inserter Relationship Specialty Start Date End Date Catrachito Curran DO [address] [place] [phone] PCP - General Internal Medicine 12/30/20 documented as of this encounter
--- NOTE | ~2025-11-06 | FL_ITS ---
EXAMINATION: XR BARIUM SWALLOW CLINICAL INFORMATION: Gastroesophageal reflux disease without esophagitis COMPARISON: None available. TECHNIQUE: Routine upright barium swallow was performed with thick barium and barium coated saltine crackers. Thin barium was administered in prone lying position. FINDINGS: Following oral administration of thick barium there is normal propagation bolus from the oral cavity through the pharynx, esophagus into stomach without any evidence of obstruction, narrowing or stricture. No intraluminal filling defect or extrinsic compression seen of esophagus. No laryngeal penetration or aspiration. On oral administration of saltine crackers there is normal oral mastication and propagation of bolus from the oral cavity through the pharynx, esophagus into stomach. No esophageal obstruction seen. On oral administration of thin barium in prone lying position there is normal propagation bolus from the oral cavity through the esophagus into stomach. There is a small sliding hiatal hernia with mild gastroesophageal reflux. FLUOROSCOPY TIME: 2 minute 17 seconds DOSE AREA PRODUCT: 1788 uGy-m2 (microgray-meter squared) FL/FL barium swallow IMPRESSION: Small sliding hiatal hernia with mild gastroesophageal reflux. Electronically signed by: Wild Nichols MD 11/06/2025 02:37 PM [facility]
--- OUTSIDE RECORDS SUMMARY | 2025-11-06 10:02 | XMS_ITS | Encounter Summary ---
Author Organization [facility] Address [address] [place] [address] Phone Care Team Providers Care Cage Loader Name Role Phone Catrachito Curran DO Primary Care Provider [phone] Encounter Details Date Type Department Care Team (Late st Contact Info) Description 10/10/2019 Procedure Pass OR Admitting Dept - Virtual Department [address] [place] [address] Social History Tobacco Use Types Packs/Day Years [...] on filedocumented in this encounter Care Teams Cage Loader Relationship Specialty Start Date End Date Catrachito Curran DO [address] [place] [address] PCP - General Internal Medicine 07/07/19 documented as of this encounter Additional Source Comments The information contained in this document represents components of the legal health record. It is not the complete legal health record.[facility]
--- OUTSIDE RECORDS SUMMARY | 2025-11-06 10:03 | XMS_ITS | Clinical Summary ---
Author Organization [facility] Address [address] [place] [address] Phone Care Team Providers Care Airplane Flight Attendant Name Role Phone BinaCatrachito varghese Primary Care Provider [phone] Allergies Active Allergy Reactions Criticality Noted Date [...] (one) time each day. 07/29/2019 Active vitamins A,C,P-rjdu-blngb r (PreserVision AREDS) 4,296 mcg-226 mg-90 mg [...] coronary artery disease 2024 COPD (chronic obstructive pulmonary disease) 12/2024 Immunizations Immunization Administration Dates Next Due Moderna SARS-CoV-2 COVID-19, mRNA, LNP-S, preservative free 03/31/2022,09/27/2021 Pfizer SARS-CoV-2 COVID-19, mRNA, LNP-S, preservative free 02/08/2021,12/23/2020 Surgical History Surgery Date Site/Laterality Comments BREAST LUMPECTOMY COLONOSCOPY BUNIONECTOMY HYSTERECTOMY KNEE ARTHROSCOPY Right KNEE ARTHROPLASTY 11/19/2020 - 11/18/2021 Right TRIGGER FINGER RELEASE Medical History Medical History Date Comments Cancer ([facility] V24, [facility] V28) 2011 RT BREAST- MELISSA AND RAD [place] COPD (chronic obstructive pu lmonary disease) ([facility] V24, [facility] V28) DVT [facility]deep venous thrombosis) ([facility] V24, [facility] V28) COUMADIN [place] Depression Shortness of breath [...] AM EST Sexual Orientation Not on file Last Filed [...] series) 02/12/2019 Cholesterol Screening (Lipid Panel) 09/03/2024 Falls Risk Assessment 09/03/2024 Medicare Annual Wellness Visit 09/03/2024 Osteoporosis Screening (Bone Density Screening) 09/03/2024 Social Influencers of Health Screening 09/03/2024 Depression Screening 11/19/2024 COVID-19 Vaccine ( season) 2025 03/31/2022, 09/27/2021, 02/08/2021, Additional history exists Influenza Vaccine (#1) 2025 Hypertension/CHF/CAD Annual BMP Blood Test 09/10/2025 09/10/2024, 12/11/2021, 01/11/2021 HIB Vaccines Aged Out No longer eligi [...] this topic Medical Devices Implanted Type Area Children'S Attendant Device Identifier Shelf Expiration Date Model / Serial / Lot Knee Insrt Cs X3 Sz4 11mm - [id number] Implanted:Qty: 1 on 09/24/2024 by Daniel Kay MD at [facility] Knee Left: Knee [employer] [id number] 05/06/2029 5531-G-41 1 / / [id number] Knee Bsplt Triathlon Ti Sz 4 - [id number] Implanted:Qty: 1 on 09/24/2024 by Daniel Kay MD at [facility] Knee Left: Knee [employer] [id number] 07/02/2029 5536-B-40 0 / / [id number] Knee Fem Bsplt Beaded W/Pa Sz4 L - [id number] Implanted:Qty: 1 on 09/24/2024 by Daniel Kay MD at [facility] Knee Left: Knee [employer] [id number] 07/31/2029 5517-F-40 1 / / [id number] Knee Ptla Asym Tritanium 29x9 - [id number] Implanted:Qty: 1 on 09/24/2024 by Daniel Kay MD at [facility] Knee Left: Knee [employer] [id number] 06/26/2029 5552-L-29 9 / / [id number] Component Femoral Posterior Stabilized Rt Size 4 Beaded W\Pe - [id number] Implanted:Qty: 1 on 01/24/2021 by Daniel Kay MD Right: Knee [employer] [id number] 07/19/2024 5516-F-40 2 / / [id number] Triathlon Tritanium Baseplate Size 5 - [id number] Implanted:Qty: 1 on 01/24/2021 by Daniel Kay MD Right: Knee [employer] [id number] 10/15/2025 5536-B-50 0 / / [id number] Insert Triathlon 5 11mm Posterior Stabilized Bearing X3 - [id number] Implanted:Qty: 1 on 01/24/2021 by Daniel Kay MD Right: Knee [employer] [id number] 11/24/2024 5532-G-51 [id number] Tritanium Asymmetric Metal Backed Patella 29mm - [id number] Implanted:Qty: 1 on 01/24/2021 by Daniel Kay MD Right: Knee [employer] [id number] 12/30/2025 5552-L-29 NHDL1 Procedures Procedure Name Priority [...] currently active code status orders. Care Teams Airplane Flight Attendant Relationship Specialty Start Date End Date Catrachito Curran DO [address] [place] [phone] PCP - General Internal Medicine 12/30/20
--- OUTSIDE RECORDS SUMMARY | 2025-11-06 10:03 | XMS_ITS | Encounter Summary ---
Author Organization [facility] Address [address] [place] [address] Phone Care Team Providers Care Distribution Driver Name Role Phone Catrachito Curran DO Primary Care Provider [phone] Encounter Details Date Type Department Care Team (Late st Contact Info) Description 09/12/2019 Procedure Pass OR Admitting Dept - Virtual Department [address] [place] [address] Social History Tobacco Use Types Packs/Day Years [...] on filedocumented in this encounter Care Teams Distribution Driver Relationship Specialty Start Date End Date Catrachito Curran DO [address] [place] [address] PCP - General Internal Medicine 07/07/19 documented as of this encounter Additional Source Comments The information contained in this document represents components of the legal health record. It is not the complete legal health record.[facility]
--- OUTSIDE RECORDS SUMMARY | 2025-11-06 10:03 | XMS_ITS | Encounter Summary ---
Author Organization [facility] Address [address] [place] [address] Phone Care Team Providers Care Qm Nurse Name Role Phone Catrachito Curran DO Primary Care Provider [phone] Encounter Details Date Type Department Care Team (Late st Contact Info) Description 09/24/2019 Prep for Surgery [facility] [address] [place] [address] Wendi Nick MD [address] [place] [address] Orthopedics & Sports Medicine, [place] [address] Social History Tobacco Use Types Packs/Day Years [...] on filedocumented in this encounter Care Teams Qm Nurse Relationship Specialty Start Date End Date Catrachito Curran DO [address] [place] [address] PCP - General Internal Medicine 07/07/19 documented as of this encounter Additional Source Comments The information contained in this document represents components of the legal health record. It is not the complete legal health record.[facility]
--- OUTSIDE RECORDS SUMMARY | 2025-11-06 10:03 | XMS_ITS | Clinical Summary ---
Author Organization [facility] Address [address] [place] [address] Phone Care Team Providers Care Bus Steward Name Role Phone Catrachito Curran DO Primary Care Provider [phone] Allergies No known active allergies Medications levothyroxine [...] Active vitamins A,C,E-zinc-pop er (PRESERVISION AREDS) 14,320-226-200 cxly-xs-gnrl Cap Take 1 capsule by mouth 2 [...] 09/27/2024 Active calcium/vit D3/mag/folic ac/K1 ([place] CARBONATE-VIT Z6-MWXT-XA-K ORAL) Take 10 mcg by mouth daily. [...] A & B [place] MEDICARE COMPLEMENT SUPPLEMENT [facility] MEDICARE PART A & B [place] MEDICARE COMPLEMENT SUPPLEMENT [facility] RE[facility] MEDICARE PART A & B [place] MEDICARE COMPLE[place] SUPPLEMENT [facility] MEDIC[facility] RE[place]AC[place] MEDICARE PART A & B [place] MEDICARE COMPLEMENT SUPPLEMENT [facility] MEDICARE REPLACEMENT MEDICARE PART A & B [facility] MEDICARE COMPLEMENT SUPPLEMENT AETNA O MEDICARE REPLACEMENT MEDICARE PART A & B [facility] MEDICARE COMPLEMENT SUPPLEMENT AET[employer] O MEDICARE REPLACEMENT MEDICARE PART A & B [place] MEDICARE COMPLEMENT SUPPLEMENT [facility] MEDICARE REPLACEMENT MEDICARE PART A & B [place] MEDICARE COMPLE[place] SUPPLEMENT [facility] MEDIC[place] RE[place]AC[place] MEDICARE PART A & B [place] MEDICARE COMPLEMENT SUPPLEMENT [facility] MEDICARE REPLACEMENT Advance Directives For more information, please contact: [phone] (9AM - 5PM [facility], Sunday-Sunday) * Full Code (Presumed) (Latest Code Status on File) Date Activated Date Inactivated Comments 10/10/2019 7:44 AM 10/10/2019 1:50 PM * Full Code (Presumed) Date Activated Date Inactivated Comments 09/12/2019 7:33 AM 09/12/2019 4:40 PM Care Teams Bus Steward Relationship Specialty Start Date End Date Catrachito Curran DO [address] [place] [phone] PCP - General Internal Medicine 07/07/19 Additional Source Comments The information contained in this document represents components of the legal health record. It is not the complete legal health record.[facility]
--- OUTSIDE RECORDS SUMMARY | 2025-11-06 10:03 | XMS_ITS | Encounter Summary ---
Author Organization [facility] Address [address] [place] [address] [place] [address] Phone Care Team Providers Care Dock Guard Name Role Phone Catrachito Curran DO Primary Care Provider + [phone] Encounter Details Date Type Department Care Team (Late st Contact Info) Description 08/18/2019 Prep for Surgery [facility] [address] [place] [phone] Wendi Nick MD [address] [place] [address] Orthopedics & Sports Medicine, [facility] [place] [address] Social History Tobacco Use Types Packs/Day Years [...] on filedocumented in this encounter Care Teams Dock Guard Relationship Specialty Start Date End Date Catrachito Curran DO [address] [place] [address] PCP - General Internal Medicine 07/07/19 documented as of this encounter Additional Source Comments The information contained in this document represents components of the legal health record. It is not the complete legal health record.[facility]
--- OUTSIDE RECORDS SUMMARY | 2025-11-06 10:03 | XMS_ITS | Clinical Summary ---
Author Organization [facility] Prior to 04/18/[address] [place] [address], [place] [address] Care Team Providers Care Dairy Associate Name Role Phone Catrachito Curran DO Primary Care Provider + [phone] Allergies Active Allergy Reactions Criticality Noted Date Comments Fluoxetine 08/27/2024 Other reaction(s): fatigue Medications Medication Sig Dispensed Refills Start Date End Date Status atorvastatin (LIPITOR) tablet 40 mg Take 1 tablet (40 mg total) by mouth every evening. 0 11/30/2020 Active Lactobacillus-Inulin ([facility]) CAPS Take 200 mg by mouth [...] this topic Medical Devices Implanted Type Area Client Support Professional Device Identifier Shelf Expiration Date Model / Serial / Lot Component Femoral Posterior Stabilized Rt Size 4 Beaded W\Pe - [id number] - [id number] Implanted:Qty: 1 on 01/24/2021 by Daniel Kay MD at [facility] Right: Knee [employer] [id number] 07/19/2024 5516-F-402 / / [id number] Triathlon Tritanium Baseplate Size 5 - [id number] - [id number] Implanted:Qty: 1 on 01/24/2021 by Daniel Kay MD at [facility] Right: Knee [employer] [id number] 10/15/2025 5536-B-500 / / [id number] Insert Triathlon 5 11mm Posterior Stabilized Bearing X3 - [id number] - [id number] Implanted:Qty: 1 on 01/24/2021 by Daniel Kay MD at [facility] Right: Knee [employer] [id number] 11/24/2024 5532-G-511 / / [id number] Tritanium Asymmetric Metal Backed Patella 29mm - [id number] - [id number] Implanted:Qty: 1 on 01/24/2021 by Daniel Kay MD at [facility] Right: Knee [employer] [id number] 12/30/2025 5552-L-299 / / [id number] Advance Directives For more information, please contact: [phone] Latest Code Status on File Code Status [...] way: discussion with patient . Care Teams Dairy Associate Relationship Specialty Start Date End Date Catrachito Curran DO [address] [place] [address] [place] [address] PCP - General Internal Medicine 12/30/20
== END 2025-11-06 09:24 | disposition home or self-care (01) ==
LOC: HO.XRAY 09:23
PROVIDERS: PCP Physician Assistant Medical; Visit Provider Physician Assistant Medical
DX: K21.9 Gastro-esophageal reflux disease without esophagitis (principal); R10.13 Epigastric pain
CPT/HCPCS: 74220

== ENCOUNTER → 2025-11-06 09:25 | Outpatient (BNV) | payer MEDICARE, SELFPAY | PROVIDERS: PCP Physician Assistant Medical; Visit Provider Radiology Diagnostic Radiology | DX: K21.9 Gastro-esophageal reflux disease without esophagitis (principal); K44.9 Diaphragmatic hernia without obstruction or gangrene | CPT/HCPCS: 74221 ==